=== PATIENT | male | born 1945 | race Caucasian/White ===

== ENCOUNTER 2017-09-27 07:54 | Outpatient (CLI) | payer MEDICARE, BC ==
--- NOTE | 2017-09-27 11:07 | MRI ---
MRI OF RIGHT ANKLE PERFORMED WITHOUT CONTRAST ENHANCEMENT: HISTORY: Ankle pain, posterior tibial tendinitis. There is a tendinotic appearance to the Achilles tendon. There are some areas of increased T2 signal to suggest an internal degeneration and possibly small interstitial tears. There is evidence for so me muscle strain involving the soleus associated with these findings. The anterior extensor tendon group is unremarkable. Peroneus longus and brevis tendons appear intact. There are moderate tenosynovitis changes of the posterior tibialis tendon which does not appear signi ficantly enlarged. There is some minimal intrasubstance signal change distally suggesting tendinopat hy. Flexor digitorum longus and flexor hallices longus tendons are normal in appearance. Sinus tarsi region appears unremarkable. Sinus tarsi fat does not appear infiltrative. Plantar fascia shows a calcaneal spur. There is a thickened appearance to the plantar fascia at the calcaneal attachment. Spring ligament complex appears unremarkable and Lisfranc's ligament appears i ntact. No evidence of any osteochondral lesion of the talar dome. Minimal arthritic changes of the ankle sujey ints are seen. No ligamentous abnormalities. Arthritic changes of the base of the metatarsals are incidentally seen. IMPRESSION: 1. Moderate tenosynovitis changes of the posterior tibialis tendon which shows minimal tendinopathy distally. 2. Tendinopathy of the Achilles tendon with mild psoas muscle strain. POS: [facility]
== END 2017-09-27 07:55 | disposition home or self-care (01) ==
LOC: SCSMRI 07:54
PROVIDERS: ATTEND Podiatrist Foot & Ankle Surgery
DX: M76.821 Posterior tibial tendinitis, right leg (principal); M76.61 Achilles tendinitis, right leg

== ENCOUNTER 2018-04-26 22:04 | Inpatient (IN) | payer MEDICARE, BC ==
--- NOTE | 2018-04-26 22:49 | RAD ---
PORTABLE CHEST 04/26/18 PROVIDED CLINICAL HISTORY: Chest tightness. FINDINGS: No comparisons. The cardiac and mediastinal silhouette is within normal limits for portable technique. No focal conso lidation, pleural fluid or pneumothorax apparent. IMPRESSION: No evidence for an acute cardiopulmonary process. POS: [facility]
[2018-04-26 23:11] LABS: #Basophils 0.1 thou/uL (0.0-0.2); #Eosinphils 0.2 thou/uL (0.0-0.7); #Lymphocytes 2.1 thou/uL (1.20-3.40); #Monocytes 0.9 thou/uL (0.11-0.59); #Neutrophils 4.4 thou/uL (1.40-6.50); %Basophils 1.2 % (0.0-1.0); %Lymphocytes 27.9 % (21.0-51.0); %Monocytes 11.6 % (0.0-10.0); %Neutrophils 57.3 % (42.0-75.0); Mean Corpuscular HGB CONC 34.3 g/dL (32.0-36.0); Mean Corpuscular Hemoglobin 31.4 pg (27.0-31.0); Mean Corpuscular Volume 91.7 fL (78.0-98.0); Mean Platelet Volume 7.7 fL (7.4-10.4); Platelet Count 181 thou/uL (130-400); RBC Distribution Width 12.1 % (11.5-14.5); Red Blood Cell (RBC) Count 4.76 mill/uL (4.70-6.10); White Blood Cell (WBC) Count 7.6 thou/uL (4.8-10.8)
[2018-04-26] MEDS ORDERED: Enoxaparin Sodium 80 MG/0.8 ML SYRINGE ONE (23:23)
[2018-04-26] MEDS ORDERED: Enoxaparin Sodium 40 MG/0.4 ML SYRINGE ONE (23:23)
[2018-04-26 23:32] LABS: ALT (SGPT) 16 U/L (8-55); AST (SGOT) 20 U/L (5-34); Albumin 3.7 g/dL (3.4-4.8); Alkaline Phosphatase 47 U/L (40-150); Anion Gap 13 mmol/L (10-20); BUN (Urea Nitrogen) 11 mg/dL (8.4-25.7); Bilirubin, Total 0.3 mg/dL (0.2-1.2); Calc. Creatinine Clearance 0 mL/min (70-130); Calcium 8.4 mg/dL (7.8-10.44); Carbon Dioxide 21 mmol/L (23-31); Chloride 107 mmol/L (98-107); Estimated GFR-MDRD Greater than 90; Globulin 3.1 g/dL (2.4-3.5); Glucose 138 mg/dL (83-110); Lipase 63 U/L (8-78); Potassium 3.8 mmol/L (3.5-5.1); Protein, Total 6.8 g/dL (5.8-8.1); Sodium 137 mmol/L (136-145)
[2018-04-26 23:55] LABS: CKMB 4.2 ng/mL (0-6.6)
[2018-04-27] MEDS ORDERED: Sodium Chloride 0.9% 1,000 ML IV SCH (02:37)
[2018-04-27] MEDS ORDERED: Ondansetron ODT 4 MG TAB SL PRN (02:37)
[2018-04-27] MEDS ORDERED: Ondansetron PF 4 MG/2 ML Vial IVP PRN (02:37)
[2018-04-27] MEDS ORDERED: Acetaminophen 325 MG TAB PO PRN (02:37)
[2018-04-27 03:32] LABS: Troponin I 1.195 ng/mL (< 0.028)
[2018-04-27] MEDS ORDERED: Nitroglycerin 0.4 MG TAB (25 Tab Bottle) PO PRN (04:08)
[2018-04-27] MEDS ORDERED: Senokot S 8.6-50 MG TAB PO PRN (04:11)
[2018-04-27] MEDS ORDERED: Bisacodyl 10 MG SUPP PR PRN (04:11)
[2018-04-27] MEDS ORDERED: Calcium Carbonate 500 MG ChewTAB PO PRN (04:11)
[2018-04-27] MEDS ORDERED: Bisacodyl 5 MG TAB PO PRN (04:11)
[2018-04-27] MEDS ORDERED: Zolpidem Tartrate 5 MG TAB PO PRN (04:11)
[2018-04-27] MEDS: Nitroglycerin 2% Ointment 1 INCH/1 GM Packet TOP SCH ×3 (05:54→22:04)
[2018-04-27] MEDS: Levothyroxine Sodium 88 MCG TAB PO SCH (05:55)
[2018-04-27 06:13] LABS: Troponin I 1.546 ng/mL (< 0.028)
--- NOTE | 2018-04-27 06:50 | HP ---
CHIEF COMPLAINT: Chest pain. HISTORY OF PRESENT ILLNESS: This 72-year-old male with past medical history of throat cancer, presenting with chest tightness. The patient reports that he was lying down at home and felt diffuse chest pain, which radiated to bilateral arms. The patient stated that his chest pain was localized on his entire chest. The pain was dull in nature, and it was very acute, and it was very painful, but currently patient states that his pain is 2/10 after treatment. Due to the severity of the pain, prompted the patient to call 911, and EMS brought the patient to our facility to be further evaluated. Route to our ER, the patient was given aspirin and nitroglycerin. At this time, the patient denies any headaches, fever, chills, nausea, vomiting, palpitations, abdominal pain, constipation, diarrhea, hematuria, dysuria, hematochezia, melena, or shortness of breath. REVIEW OF SYSTEMS: Positive for chest pain, otherwise as documented in the HPI. All systems have been reviewed and are negative. PAST MEDICAL HISTORY: Throat cancer. FAMILY HISTORY: Reviewed and noncontributory to this visit. PAST SURGICAL HISTORY: Lumbar back surgery, right shoulder surgery, and right knee replacement. PSYCHIATRIC HISTORY: No psych history. SOCIAL HISTORY: The patient is a former tobacco smoker, quit smoking more than 10 years ago. The patient denies any alcohol use and denies any illicit drug use. ALLERGIES: CODEINE AND PENICILLIN. CURRENT MEDICATIONS: The patient is on, 1. Zyrtec. 2. Omeprazole. 3. Levothyroxine 88 mcg. 4. Metoprolol 25 mg b.i.d. 5. AndroGel. PHYSICAL EXAMINATION: VITAL SIGNS: The patient's blood pressure is 150/105, pulse of 108, respiratory rate of 18, temperature is 98.5, O2 saturation is 95. GENERAL: The patient is awake, alert, oriented x3, not in acute distress. The patient is lying comfortably in his bed. The patient is able to speak in full sentences. HEENT: Normocephalic and atraumatic. Pupils are equally round and reactive to light. Extraocular movements are intact. No scleral icterus. No conjunctival pallor. Mucous membranes are moist. NECK: Trachea is midline. Full range of motion. No JVD. Supple. LUNGS: Clear to auscultation bilaterally. No wheezing, no rales, no rhonchi appreciated. CARDIAC: Positive S1 and S2. Irregularly irregular. ABDOMEN: Soft, nontender, and nondistended. Positive bowel sounds in all quadrants. No peritoneal signs. EXTREMITIES: The patient has 5/5 upper extremity strength and 5/5 lower extremity strength. Good pulses bilaterally. No edema noted. NEUROLOGIC: Cranial nerves 2 through 12 are grossly intact. No neurologic deficits noted. SKIN: Warm, dry, and intact. PSYCH: Normal affect. DIAGNOSTIC DATA: EKG; a 12-lead EKG shows atrial fibrillation with controlled ventricular aberrant conducted complexes. X-ray of the chest showed no evidence of acute cardiopulmonary process. LABORATORY DATA: WBC 7.6, hemoglobin 15.0, hematocrit is 43.7, and platelet count is 181. Sodium is 137, potassium is 3.8, chloride is 107, carbon dioxide of 21, anion gap of 13, BUN is 11, creatinine is 0.82. Troponin is 0.102 and the second set is 1.195 and third set is 1.546. ASSESSMENT AND PLAN: This is a 72-year-old male presenting with: 1. Chest pain due to myocardial infarction. At this point, the patient do have NSTEMI. We will start the patient on aspirin and Lovenox. We have consulted Cardiology. We will follow up with Cardiology's recommendations. The patient will benefit from possible cardiac cath at this time. 2. Past medical history of throat cancer, currently stable. We will monitor the patient. 3. Deep vein thrombosis/gastrointestinal prophylaxis. Job ID: [id number]
--- NOTE | 2018-04-27 13:59 | PRG ---
DATE OF SERVICE: 04/27/2018 SUBJECTIVE: The patient is seen and examined at bedside. He does not have much complaints to offer. He does not have chest pain during my visit. His is present in the room during my visit. OBJECTIVE: VITAL SIGNS: Blood pressure is 146/71, pulse is 58, respiratory rate is 15, temperature is 97.9, and O2 saturation is 95% on room air. HEENT: His head is atraumatic and normocephalic. Eyes are PERRLA. Sclerae are nonicteric. Oral mucosa is moist. NECK: Supple. No lymphadenopathy. CHEST: Clear. HEART: S1 and S2 normal. No S3. No S4. No murmur. ABDOMEN: Soft, obese, and nontender. Bowel sounds are present. No organomegaly. EXTREMITIES: No clubbing, cyanosis, or edema. NEUROLOGICAL: He is alert and oriented x4. There is no any motor or sensory deficit. Cranial nerves are intact. LABORATORY DATA: Labs showed 2 sets of troponin I at 1.195 and 1.546. IMPRESSION AND PLAN: [id number] elevation myocardial infarction. The patient is placed on full dose of Lovenox. He received aspirin this morning. We will keep him on both. Cardiology consult is requested. Echocardiogram to be done. He is n.p.o. and awaiting final decision per Dr. Park who is group leader semiconductor testing today. Job ID: [id number]
[2018-04-27] MEDS: Sodium Chloride 0.9% 1,000 ML IV SCH ×2 (15:42→17:53)
[2018-04-27] MEDS: Famotidine 20 MG TAB PO SCH ×2 (17:45→22:01)
[2018-04-27] MEDS: Enoxaparin Sodium 120 MG/0.8 ML SYRINGE SC SCH ×2 (17:45→22:01)
[2018-04-27] MEDS: Cetirizine HCl 10 MG TAB PO SCH (17:45)
[2018-04-27] MEDS: Metoprolol Tartrate 25 MG TAB PO SCH ×2 (17:45→22:02)
[2018-04-27] MEDS: Famotidine/PF 20 mg/2ml Vial SLOW IVP SCH ×2 (17:52→22:02)
[2018-04-27] MEDS ORDERED: Communication Order-Pharmacy FS SCH (21:30)
--- NOTE | 2018-04-28 04:23 | CON ---
DATE OF CONSULTATION: HISTORY: Sang Gallego is a 72-year-old white male who has been told in the past that he had irregular heartbeat and has undergone Holter monitoring as well as echo. He also states that 25 years ago he underwent a cardiac catheterization and was told that he had 1% or 2% blockage. Yesterday, he was outside, doing yard work as well as cutting limbs, but came in approximately 1:30 p.m. He ate dinner in the early evening and then went to bed. He then began to notice central chest pressure and feeling short of breath. He then decided to take his blood pressure and his blood pressure was approximately 160/120 with heart rate in the 160s. He repeated this several minutes later and got essentially the same result and so called EMS. On the way here, he was given aspirin and nitroglycerin and the pain resolved. Initial EKG revealed probable atrial flutter. The only medicine given in the emergency room was Lovenox 1 mg/kg. The remainder of the telemetry strips showed that he is in sinus rhythm. He has not had any further episodes of chest discomfort, but did develop abnormal cardiac enzymes. Also this morning, he was given another dose of 1 mg/kg Lovenox at 9:00 am and it was felt that without emergent circumstances that he should not undergo cardiac catheterization today with just receiving a full anticoagulation dose of Lovenox. When I came to initially see the patient, the patient's was very irate that nothing had been done for him and essentially did not wish to talk with me and I told her that as she did not want me to be there to see her that I had other things to do and so I left. Later I received word that the patient had sent his family home and wished to discuss his situation with me. PAST MEDICAL HISTORY: Metoprolol for premature beats. Hypothyroidism. No history of hypertension, diabetes, or hypercholesterolemia. PAST SURGICAL HISTORY: Right total knee replacement, back surgery, right shoulder surgery. 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 MEDICATIONS: 1. Levothyroxine 88 mcg daily. 2. Zyrtec 10 mg daily. 3. Metoprolol 25 mg b.i.d. 4. Omeprazole 40 daily. 5. Testosterone 2 pumps topically daily. ALLERGIES: CODEINE AND PENICILLIN. SOCIAL HISTORY: He does not smoke or drink. FAMILY HISTORY: Negative for myocardial infarction and coronary artery disease. REVIEW OF SYSTEMS: A 12-point review of systems is otherwise unremarkable. PHYSICAL EXAMINATION: VITAL SIGNS: Blood pressure 159/85, pulse of 76. HEENT: PERRL. NECK: Supple. CHEST: Clear. CARDIAC: S1 and S2 normal without any S3, S4, or murmurs. Carotid upstrokes normal without bruits. ABDOMEN: Normal bowel sounds without tenderness. EXTREMITIES: Revealed no clubbing, cyanosis, or edema. NEUROLOGICAL: Grossly intact. LABORATORY DATA: The only EKG on the chart reveals probable atrial flutter with variable block. No acute changes. Echocardiogram revealed ejection fraction of 50% to 55% with evidence for diastolic dysfunction, mild left atrial enlargement, mild mitral tricuspid and pulmonic regurgitation. CBC is unremarkable. Sodium 137, potassium 3.8, chloride 107, carbon dioxide 21 , BUN 11, creatinine 0.82, glucose 138. BNP 239.8. Troponin I is up to 1.546. Chest x-ray is unremarkable. IMPRESSION: 1. Fts-VN-uqralzbjn myocardial infarction. 2. Atrial flutter. It is somewhat unclear if this was the initiating event or as a result of his [id number]-ZY-srygacuns myocardial infarction. This appears to have converted back to normal sinus rhythm without specific treatment. 3. History of premature beats. 4. Unknown cholesterol status. RECOMMENDATIONS: The patient will be maintained on Lovenox until cardiac cath. Risks of catheterization were discussed including , myocardial infarction, dye reaction, vascular injury, CVA, transfusion, limb loss, renal loss, etc. Also risk of intervention with PTCA and stent placement were discussed including , myocardial infarction, emergent CABG, restenosis, stent thrombosis, vessel perforation, etc. We discussed bare-metal stent versus drug-eluting stents. He has never had any gastrointestinal bleeding or stroke. He does not have any upcoming surgeries and overall is recommended that a drug-eluting stent be placed if needed. He understands and agrees to proceed. If no significant coronary artery disease is found and this appears to be a result of his episode of atrial flutter, Electrophysiology consultation will be obtained. Job ID: [id number] [facility]
[2018-04-28] MEDS: Levothyroxine Sodium 88 MCG TAB PO SCH (04:59)
[2018-04-28] MEDS: Acetaminophen 325 MG TAB PO PRN ×3 (04:59→21:05)
[2018-04-28] MEDS: Nitroglycerin 2% Ointment 1 INCH/1 GM Packet TOP SCH ×3 (04:59→21:10)
[2018-04-28 05:06] LABS: #Basophils 0.1 thou/uL (0.0-0.2); #Eosinphils 0.1 thou/uL (0.0-0.7); #Monocytes 1.1 thou/uL (0.11-0.59); #Neutrophils 6.8 thou/uL (1.40-6.50); %Basophils 0.6 % (0.0-1.0); %Eosinophils 1.4 % (0.0-10.0); %Lymphocytes 20.2 % (21.0-51.0); %Monocytes 10.5 % (0.0-10.0); %Neutrophils 67.3 % (42.0-75.0); Hemoglobin 14.8 g/dL (14.0-18.0); Mean Corpuscular HGB CONC 34.4 g/dL (32.0-36.0); Mean Corpuscular Hemoglobin 31.3 pg (27.0-31.0); Platelet Count 183 thou/uL (130-400); RBC Distribution Width 12.1 % (11.5-14.5); Red Blood Cell (RBC) Count 4.72 mill/uL (4.70-6.10); White Blood Cell (WBC) Count 10.1 thou/uL (4.8-10.8)
[2018-04-28 05:31] LABS: Anion Gap 13 mmol/L (10-20); BUN (Urea Nitrogen) 11 mg/dL (8.4-25.7); Calc. Creatinine Clearance 148 mL/min (70-130); Carbon Dioxide 24 mmol/L (23-31); Cardiac Risk 5.5 (Less than 4.5); Chloride 105 mmol/L (98-107); Cholesterol 198 mg/dl (< 200 Desired); Estimated GFR-MDRD Greater than 90; Glucose 87 mg/dL (83-110); HDL Cholesterol 36 mg/dL (>60 Neg Risk); LDL Cholesterol, Calculated 135 mg/dL; Sodium 138 mmol/L (136-145); Triglycerides 137 mg/dL (Less than 150)
[2018-04-28] MEDS: Aspirin 325 MG TAB PO SCH (08:48)
[2018-04-28] MEDS: Metoprolol Tartrate 25 MG TAB PO SCH (08:48)
[2018-04-28] MEDS: Famotidine 20 MG TAB PO SCH ×2 (08:48→21:05)
[2018-04-28] MEDS: Enoxaparin Sodium 120 MG/0.8 ML SYRINGE SC SCH ×2 (08:48→21:09)
[2018-04-28] MEDS: Famotidine/PF 20 mg/2ml Vial SLOW IVP SCH ×2 (08:48→21:10)
[2018-04-28] MEDS: Cetirizine HCl 10 MG TAB PO SCH (08:48)
--- NOTE | 2018-04-28 11:34 | PRG ---
DATE OF SERVICE: 04/28/2018 SUBJECTIVE: The patient is seen and examined at the bedside. He is doing well. He does not have any chest pain. Does not have any other complaints to offer. OBJECTIVE: VITAL SIGNS: Blood pressure is 159/87, pulse is 64, temperature is 97.5, respirations 20, O2 saturation is 93% on room air. HEENT: His head is atraumatic and normocephalic. Eyes are PERRLA. Sclerae are nonicteric. Oral mucosa is moist. NECK: Supple. LUNGS: Clear. HEART: S1, S2 normal. No S3. No S4. No any murmur. ABDOMEN: Soft, nontender, and nondistended. Bowel sounds are present. No organomegaly. EXTREMITIES: No clubbing, cyanosis, or edema. NEUROLOGICAL: He is alert and oriented x4. There is no any motor or sensory deficit present. Cranial nerves are intact. LABORATORY DATA: CBC is within normal limits. Chemistry within normal limits. He has two sets of troponins, came back at 1.195 and 1.546. Triglycerides 137, total cholesterol 198, LDL 135, HDL 35, and TSH third generation 1.37. Echocardiogram showed ejection fraction of the left ventricle at 50% to 55%. There is some evidence of diastolic dysfunction. There is mildly dilated left atrium. Mild mitral regurgitation, mild tricuspid regurgitation, and mild pulmonic regurgitation. IMPRESSION: Non-ST elevation myocardial infarction. The patient on full dose of Lovenox. He was seen by Dr. Park, who is planned to do cardiac catheterization on Monday. History of throat cancer, stable. PLAN: Now, the plan is to continue his aspirin, full dose of Lovenox, Synthroid, metoprolol, pantoprazole, p.r.n. nitroglycerin. He will be scheduled for Monday for cardiac catheterization by Dr. Isaac. Job ID: [id number]
[2018-04-28] MEDS: Metoprolol Tartrate 50 MG TAB PO SCH (21:36)
--- NOTE | 2018-04-28 21:59 | EKG ---
Test Reason : CHEST TIGHTNESS Blood Pressure : / mmHG Vent. Rate : 099 BPM Atrial Rate : 267 BPM P-R Int : 000 ms QRS Dur : 078 ms QT Int : 348 ms P-R-T Axes : 242 -34 -35 degrees QTc Int : 446 ms Atrial flutter with variable A-V block with premature ventricular or aberrantly conducted complexes Left axis deviation Pulmonary disease pattern Minimal voltage criteria for LVH, may be normal variant Inferior infarct , age undetermined Abnormal ECG Confirmed by KENNETH WARNER DO ([id number]), market editor TERESA DUFFY ([id number]) on 04/28/2018 9:59:17 PM Referred By: TIMMY Confirmed By:KENNETH WARNER DO
[2018-04-29] MEDS: Nitroglycerin 2% Ointment 1 INCH/1 GM Packet TOP SCH ×3 (06:11→20:41)
[2018-04-29] MEDS: Levothyroxine Sodium 88 MCG TAB PO SCH (06:11)
--- NOTE | 2018-04-29 08:31 | PDOC.PN ---
- Subjective Encounter Start Date: 04/29/18 Encounter Start Time: 08:29 Subjective: No new complaint - Objective Resuscitation Status - Order Detail: 04/27/18 04:11 Resuscitation Status Routine Resuscitation Status: FULL: Full Resuscitation Vital Signs & Weight: Vital Signs (12 hours) Temp Pulse Resp BP Pulse Ox 04/29/18 07:51 97.7 F 60 16 144/68 H 95 04/29/18 03:50 98.2 F 61 20 144/76 H 93 L 04/28/18 23:38 97.9 F 55 L 16 116/56 L 93 L 04/28/18 21:08 45 L 138/64 95 Weight Weight 260 lb 4.8 oz I&O: 04/28/18 04/29/18 04/30/18 06:59 06:59 06:59 Intake Total 680 960 Output Total 175 Balance 505 960 Result Diagrams: 04/28/18 04:40 04/28/18 04:40 Phys Exam - Physical Examination Constitutional: NAD HEENT: PERRLA, moist MMs, sclera anicteric, TM's clear Neck: no nodes, no JVD, supple, full ROM Respiratory: no wheezing, no rales, no rhonchi, clear to auscultation bilateral Cardiovascular: RRR, no significant murmur, no rub Gastrointestinal: soft, non-tender, no distention, positive bowel sounds Musculoskeletal: no edema, pulses present Neurological: non-focal, normal sensation, moves all 4 limbs Lymphatic: no nodes Dx/Plan (1) Chest pain Code(s): R07.9 - CHEST PAIN, UNSPECIFIED Status: Acute (2) NSTEMI (non-ST elevated myocardial infarction) Code(s): I21.4 - NON-ST ELEVATION (NSTEMI) MYOCARDIAL INFARCTION Status: Acute - Plan DVT proph w/lovenox Appreciate cardiology input -: Full dose lovenox -: Cardiac cath on monday * .
[2018-04-29] MEDS: Famotidine 20 MG TAB PO SCH ×2 (08:44→20:38)
[2018-04-29] MEDS: Aspirin 325 MG TAB PO SCH (08:44)
[2018-04-29] MEDS: Metoprolol Tartrate 50 MG TAB PO SCH ×2 (08:44→20:38)
[2018-04-29] MEDS: Cetirizine HCl 10 MG TAB PO SCH (08:45)
[2018-04-29] MEDS: Famotidine/PF 20 mg/2ml Vial SLOW IVP SCH ×2 (10:07→20:41)
[2018-04-29] MEDS: Acetaminophen 325 MG TAB PO PRN (17:36)
[2018-04-29] MEDS: Lisinopril 5 MG TAB PO SCH (20:40)
[2018-04-30 04:47] LABS: #Eosinphils 0.2 thou/uL (0.0-0.7); #Lymphocytes 2.2 thou/uL (1.20-3.40); #Monocytes 0.8 thou/uL (0.11-0.59); #Neutrophils 3.7 thou/uL (1.40-6.50); %Basophils 0.4 % (0.0-1.0); %Eosinophils 2.8 % (0.0-10.0); %Lymphocytes 32.2 % (21.0-51.0); %Neutrophils 53.6 % (42.0-75.0); Hemoglobin 15.2 g/dL (14.0-18.0); Mean Corpuscular HGB CONC 34.4 g/dL (32.0-36.0); Mean Corpuscular Hemoglobin 31.6 pg (27.0-31.0); Mean Corpuscular Volume 91.7 fL (78.0-98.0); Mean Platelet Volume 7.6 fL (7.4-10.4); Platelet Count 188 thou/uL (130-400); Red Blood Cell (RBC) Count 4.81 mill/uL (4.70-6.10)
[2018-04-30 05:12] LABS: Calc. Creatinine Clearance 135 mL/min (70-130); Estimated GFR-MDRD Greater than 90
[2018-04-30] MEDS: Cetirizine HCl 10 MG TAB PO SCH (05:46)
[2018-04-30] MEDS: Levothyroxine Sodium 88 MCG TAB PO SCH (05:46)
[2018-04-30] MEDS: Aspirin 325 MG TAB PO SCH (05:46)
[2018-04-30] MEDS: Famotidine 20 MG TAB PO SCH ×2 (05:46→20:33)
[2018-04-30] MEDS: Lisinopril 5 MG TAB PO SCH ×2 (05:47→20:33)
[2018-04-30] MEDS: Nitroglycerin 2% Ointment 1 INCH/1 GM Packet TOP SCH ×3 (05:48→21:25)
[2018-04-30] MEDS: Metoprolol Tartrate 50 MG TAB PO SCH ×2 (05:48→20:34)
[2018-04-30] MEDS: Famotidine/PF 20 mg/2ml Vial SLOW IVP SCH ×2 (05:49→20:35)
[2018-04-30] MEDS ORDERED: Sodium Chloride 0.9% 1,000 ML IV SCH ×2 (06:00→10:34)
[2018-04-30] MEDS ORDERED: Midazolam HCl 2 mg/2 ml Vial ONE (08:48)
[2018-04-30] MEDS ORDERED: Fentanyl 100 MCG/2 ML VIAL ONE (08:48)
[2018-04-30] MEDS ORDERED: Lidocaine 1% (PF) 30 ML VIAL ONE (09:02)
--- NOTE | 2018-04-30 09:08 | PDOC.PN ---
- Subjective Encounter Start Date: 04/30/18 Encounter Start Time: 09:07 Subjective: Seen and examined feeling ok - Objective Resuscitation Status - Order Detail: 04/27/18 04:11 Resuscitation Status Routine Resuscitation Status: FULL: Full Resuscitation Vital Signs & Weight: Vital Signs (12 hours) Temp Pulse Resp BP Pulse Ox 04/30/18 07:52 97.2 F L 60 18 137/74 94 L 04/30/18 05:47 51 L 04/30/18 03:32 97.6 F 55 L 16 153/75 H 96 04/29/18 23:09 97.7 F 53 L 18 133/69 94 L Weight Weight 258 lb 1.6 oz I&O: 04/29/18 04/30/18 05/01/18 06:59 06:59 06:59 Intake Total 960 1380 Output Total 1225 Balance 960 155 Result Diagrams: 04/30/18 04:31 04/30/18 04:31 Phys Exam - Physical Examination Constitutional: NAD HEENT: PERRLA, moist MMs, sclera anicteric, TM's clear, oral pharynx no lesions Neck: no nodes, no JVD, supple, full ROM Respiratory: no wheezing, no rales, no rhonchi Cardiovascular: RRR, no significant murmur, no rub Gastrointestinal: soft, non-tender, no distention, positive bowel sounds Musculoskeletal: no edema, pulses present Dx/Plan (1) Chest pain Code(s): R07.9 - CHEST PAIN, UNSPECIFIED Status: Acute (2) NSTEMI (non-ST elevated myocardial infarction) Code(s): I21.4 - NON-ST ELEVATION (NSTEMI) MYOCARDIAL INFARCTION Status: Acute - Plan Cardiac catherisation today -: Dispo dependent on the cardiac cath findings * .
[2018-04-30] MEDS ORDERED: Iopamidol 370 76% 50 ML VIAL FS ONE (10:01)
[2018-04-30] MEDS ORDERED: Iopamidol 370 76% 100 ML VIAL ONE (10:01)
[2018-04-30] MEDS ORDERED: Protamine Sulfate 50 MG/5 ML VIAL ONE (10:12)
[2018-04-30] MEDS ORDERED: Acetaminophen/Codeine 30-300mg Tablet PO PRN ×2 (10:32)
[2018-04-30] MEDS ORDERED: Nitroglycerin 0.4 MG TAB (25 Tab Bottle) SL PRN (10:32)
[2018-04-30] MEDS ORDERED: traMADol HCl 50 MG TAB PO PRN (10:32)
[2018-04-30] MEDS ORDERED: Sodium Chloride 0.9% 200 ML IV PRN (10:45)
[2018-04-30] MEDS ORDERED: Communication Order-Pharmacy FS ONE (15:58)
[2018-04-30] MEDS ORDERED: Acetaminophen 325 MG TAB PO PRN (21:39)
--- NOTE | 2018-04-30 21:59 | CON ---
DATE OF CONSULTATION: 04/30/2018 PRIMARY CARE PHYSICIAN: Butch Rucker MD CHIEF COMPLAINT: Chest pressure and shortness of breath. HISTORY OF PRESENT ILLNESS: The patient is a 72-year-old man with minimal past medical history. 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 He was doing his typical workload, cutting limbs and clearing brush without any difficulty, but decided to eat supper and turn in early. This past Monday, he developed substernal chest pressure and shortness of breath. When he took his heart rate and blood pressure at home, his heart rate was in the 160s and blood pressure was 160/120, and it was essentially the same several minutes later when he rechecked it, so he called EMS. He was given aspirin and nitroglycerin en route. Some reports say that he was in atrial fibrillation, other in atrial flutter en route. By the time he reached here, his pain had essentially resolved and upon arrival or shortly thereafter, he spontaneously converted to sinus rhythm. He was given 1 mg/kg Lovenox and he has had an uncomplicated postinfarction course following what proved to be a non ST-elevation [place]. Cardiac catheterization today shows three-vessel coronary disease with low normal LVEF. PAST MEDICAL HISTORY: Significant for history of vocal cord cancer. He has had multiple back procedures, multiple knee procedures including knee replacement. Ultimately, he reports having ectopy, appreciated during a preop workup for shoulder surgery, and was empirically started on lopressor at that time. He describes undergoing a cardiac evaluation that included cardiac catheterization around 25 years ago for some shortness of breath that proved self-limiting. He describes having trivial coronary disease identified at that point. MEDICATIONS: The patient's home medications are: 1. Zyrtec 10 mg a day. 2. Prilosec 20 mg a day. 3. Synthroid 88 mcg a day. 4. Lopressor 25 mg a day. 5. AndroGel topical daily. Currently, he is on: 1. Lopressor 50 mg b.i.d. 2. Lisinopril 5 mg b.i.d. 3. Nitroglycerin paste one-half inch q.8 hours. 4. Adult aspirin a day. 5. Protonix 40 mg a day. 6. Pepcid 20 mg b.i.d. 7. Zyrtec 10 mg a day. 8. His Lovenox has been stopped. ALLERGIES: HE REPORTS AN ALLERGY TO PENICILLIN WHICH CAUSES A RASH, TO CODEINE WHICH CAUSES A RASH (BUT HAS TAKEN HYDROCODONE ON MULTIPLE OCCASIONS WITHOUT DIFFICULTY). HE REPORTS AN INTOLERANCE TO 2 DIFFERENT STATINS, THE NAMES OF WHICH HE DOES NOT RECALL, WHICH CAUSED SEVERE LEG CRAMPS. THE PATIENT USED TO SMOKE, BUT QUIT MANY YEARS AGO. FAMILY HISTORY: His father underwent cardiac valve surgery. He at age 85 with problems related to COPD and renal failure. His mother lived age 85. She had Parkinson disease and Alzheimer disease. REVIEW OF SYSTEMS: The patient a few weeks ago had some diarrhea, but has had no other recent illnesses. He denies any transient eye, speech, facial or extremity symptoms to suggest TIAs. He has chronic back pain. He has no shortness of breath. No orthopnea. No PND. No deep tendon edema. He has no crampy pain in his legs when he walks. He is normally able to carry out quite vigorous activities without difficulty. This is his first episode of chest pain. PHYSICAL EXAMINATION: GENERAL: He is in no distress. VITAL SIGNS: He is 6 foot and 3 inches, weighs 200. His initial weight was recorded as 265 pounds. His most recent weight is recorded as 258. In the emergency room, his heart rate was 108, blood pressure 150/105, respirations 18, room air O2 sats were 95%. Heart rates now have ranged from 44-60 with the most recent being 55. Blood pressure is 133/69, room air O2 sats are 95%. He has remained afebrile. His most recent temperature is 98.2. He has no xanthelasma. No JVD. No carotid bruits. CHEST: Clear to auscultation. He has regular rate and rhythm without murmur or gallop. ABDOMEN: Soft and nontender. He has easily palpable radial, femoral, popliteal, dorsalis pedis and posterior tibial pulses. He has no clubbing, cyanosis, or edema. He has no obvious varicosities. He has no overt hoarseness and he says that the hoarseness he had at the time of the diagnosis of his vocal cord cancer has resolved. LABORATORY DATA: His white count 7.6, hemoglobin 15.0, hematocrit 43.7, platelets were 181,000. Sodium 137, potassium 3.8, chloride 107, CO2 of 21, glucose 138, BUN 11, creatinine 0.82, calcium 8.4, protein 6.8, albumin 3.7, bilirubin 0.3, alkaline phosphatase 47, AST 20, ALT 16. Fasting triglycerides were 137, cholesterol 198 with LDL 135 and HDL 36, TSH was 1.3776. On the night of , presentation about 11 o'clock, his troponin was 0.102. At 3 o'clock the next morning, it was 1.195 and about 5:30 the next morning, 1.546. His BNP was 239.8. His chest x-ray perhaps shows some very mild pulmonary edema. His EKG that I saw on the chart was atrial fibrillation about a rate of 100 with small voltage R waves in inferior leads, similar to what he had when he converted to sinus. Followup EKG with sinus bradycardia in the low 50s. His cardiac catheterization shows a right-dominant system. His left main is normal. 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 He has approximately occluded circumflex with a tiny ramus type OM that fills left to left and then on right-sided injections, fairly good-sized obtuse marginal that is occluded and fills [id number]. He has a long 80% lesion in the mid right coronary with large posterior descending and posterior lateral branches, which provide collaterals for the obtuse marginal. LVEF is around 50%, which is consistent with his echo that showed an EF of 50% to 55%. LV pressures were 136/4 with an EDP of 13 and 150/2 with an EDP of 5. Aortic pressures were 136/72 and 133/65. IMPRESSION AND RECOMMENDATIONS: Three-vessel coronary disease in a patient, who appears to be a low risk candidate for surgical revascularization while he probably does not fit a category of patients for whom there is a survival advantage in coronary bypass surgery. His disease is significant enough that I think his best option long-term in terms of symptomatic "control" will be with revascularization. I will discuss with Dr. Park about whether an epicardial modified maze procedure would be appropriate given his presentation with atrial fibrillation. Job ID: [id number]
[2018-05-01] MEDS: Levothyroxine Sodium 88 MCG TAB PO SCH (06:03)
[2018-05-01] MEDS: Lisinopril 5 MG TAB PO SCH (06:03)
[2018-05-01] MEDS: Metoprolol Tartrate 50 MG TAB PO SCH (06:04)
[2018-05-01] MEDS: Nitroglycerin 2% Ointment 1 INCH/1 GM Packet TOP SCH (06:05)
[2018-05-01] MEDS ORDERED: Clindamycin/D5W 900 mg/50 ml Premix Bag ONE (06:09)
[2018-05-01] MEDS ORDERED: Fentanyl 250 MCG/5 ML VIAL ONE (06:12)
[2018-05-01] MEDS ORDERED: Norepinephrine 8 MG/0.9% NS 250 ML ONE (06:13)
[2018-05-01] MEDS ORDERED: Albumin 5% 500 ML ONE (06:28)
[2018-05-01] MEDS ORDERED: CABG-Clindamycin/D5W 900 MG in Premix Bag 1 BAG IVPB SCH (07:00)
[2018-05-01] MEDS ORDERED: Heparin 10,000 UNITS/1 ML VIAL 30,000 UNITS in Sodium Chloride 0.9% 1,000 ML FS SCH (08:30)
[2018-05-01] MEDS ORDERED: Ondansetron PF 4 MG/2 ML Vial IVP PRN (10:35)
[2018-05-01] MEDS ORDERED: Fentanyl 100 MCG/2 ML VIAL SLOW IVP PRN ×2 (10:35)
[2018-05-01] MEDS ORDERED: Bisacodyl 5 MG TAB PO PRN (10:35)
[2018-05-01] MEDS ORDERED: Hetastarch 6% 500 ML 500 ML IVPB PRN (10:35)
[2018-05-01] MEDS ORDERED: Aspirin 325 MG TAB PO SCH (10:35)
[2018-05-01] MEDS ORDERED: Promethazine HCl 25 MG/ML VIAL IM PRN (10:35)
[2018-05-01] MEDS ORDERED: Morphine 2 MG/ML SYRINGE SLOW IVP PRN (10:35)
[2018-05-01] MEDS ORDERED: Norepinephrine 8 MG/0.9% NS 250 ML IVPB PRN (10:35)
[2018-05-01] MEDS ORDERED: Post-Op Insulin Drip Protocol IVPB ONE (10:35)
[2018-05-01] MEDS ORDERED: Nitroglycerin 50 MG/250 ML BOT 250 ML IVPB PRN (10:35)
[2018-05-01] MEDS ORDERED: Bisacodyl 10 MG SUPP PR PRN (10:35)
[2018-05-01] MEDS ORDERED: Guaifenesin DM 100-10/5 ML UDCUP PO PRN (10:35)
[2018-05-01] MEDS ORDERED: Acetaminophen 325 MG TAB PO PRN (10:35)
[2018-05-01] MEDS ORDERED: Mag-Al 1200 mg/1200 mg/30 ML UDCUP PO PRN (10:35)
[2018-05-01] MEDS ORDERED: hydrALAZINE 20 MG/ML VIAL SLOW IVP PRN (10:35)
[2018-05-01] MEDS ORDERED: Dextrose 5% in Water 1,000 ML IV PRN (10:40)
[2018-05-01] MEDS ORDERED: Dextrose 50% Abboject 50 ML SYRINGE SLOW IVP PRN (10:40)
[2018-05-01] MEDS ORDERED: HUMULIN R 100 UNITS in Sodium Chloride 0.9% 100 ML IVPB SCH ×2 (10:40→14:52)
[2018-05-01] MEDS ORDERED: Insulin Regular 300 UNITS/3 ML VIAL SC PRN (10:40)
[2018-05-01 14:00] LABS: Actual Bicarbonate (HCO3a) 21.9 mEq/L (22-28); CO2 Tension 34.8 mmHg (35.0-45.0); Calcium, Ionized 1.05 mmol/L (1.12-1.30); Carboxyhemoglobin (COHb) 1.1 gm% (0.0-3.0); Hemoglobin (Hb) 13.2 g/dL (14.0-18.0); O2 Tension (PaO2) 91.9 mmHg (> 70.0); Potassium - ABG Lab 4.12 mmol/L (3.70-5.30); pH, Arterial 7.42 (7.35-7.45)
[2018-05-01] MEDS: Ketorolac Tromethamine 30 MG/ML VIAL IVP SCH ×3 (14:00→23:57)
[2018-05-01] MEDS: Sodium Chloride 0.9% 1,000 ML IV SCH ×2 (14:00→23:57)
[2018-05-01 14:01] LABS: Puncture Site ALINE
[2018-05-01 14:16] LABS: #Lymphocytes 1.1 thou/uL (1.20-3.40); #Monocytes 0.9 thou/uL (0.11-0.59); %Basophils 0.2 % (0.0-1.0); %Eosinophils 0.4 % (0.0-10.0); %Monocytes 8.4 % (0.0-10.0); %Neutrophils 80.9 % (42.0-75.0); Hemoglobin 12.9 g/dL (14.0-18.0); Mean Corpuscular HGB CONC 35.2 g/dL (32.0-36.0); Mean Corpuscular Hemoglobin 32.1 pg (27.0-31.0); Mean Corpuscular Volume 91.2 fL (78.0-98.0); Mean Platelet Volume 7.6 fL (7.4-10.4); Platelet Count 143 thou/uL (130-400); RBC Distribution Width 12.3 % (11.5-14.5); Red Blood Cell (RBC) Count 4.02 mill/uL (4.70-6.10); White Blood Cell (WBC) Count 11.1 thou/uL (4.8-10.8)
[2018-05-01 14:24] LABS: INR-International Normal Ratio 1.3; PTT 28.8 SEC (22.9-36.1)
[2018-05-01] MEDS ORDERED: Magnesium 5 GM/10 ML VIAL ONE (14:32)
[2018-05-01] MEDS ORDERED: Cardioplegic Soln 1,000 ML BAG ONE (14:32)
[2018-05-01] MEDS ORDERED: Succinylcholine Chloride 20 MG/ML 10 ml SYRINGE FS ONE (14:32)
[2018-05-01] MEDS ORDERED: Heparin 5,000 UNITS/ML VIAL ONE (14:32)
[2018-05-01] MEDS ORDERED: Potassium Chloride 60 MEQ/30 ML VIAL ONE (14:32)
[2018-05-01] MEDS ORDERED: Heparin 30,000 units/30 ml VIAL ONE (14:32)
[2018-05-01] MEDS ORDERED: Lidocaine 2% PF 100 mg/5 ml Syringe ONE (14:32)
[2018-05-01] MEDS ORDERED: Calcium Chloride 1 GM/10 ML Abboject SYRINGE ONE (14:32)
[2018-05-01] MEDS ORDERED: Mannitol 12.5 GM/50 ML ONE (14:32)
[2018-05-01] MEDS ORDERED: Vecuronium 10 MG VIAL ONE (14:32)
[2018-05-01] MEDS ORDERED: Nitroglycerin 50 MG/250 ML BOT ONE (14:32)
[2018-05-01] MEDS ORDERED: Protamine Sulfate 250 MG/25 ML VIAL ONE (14:32)
[2018-05-01] MEDS ORDERED: Aminocaproic Acid 5 GM/20 ML VIAL ONE (14:32)
[2018-05-01] MEDS ORDERED: Rocuronium Bromide 10 MG/ML (10ML VIAL) ONE (14:32)
[2018-05-01] MEDS ORDERED: Papaverine 60 MG/2 ML VIAL ONE (14:32)
[2018-05-01] MEDS ORDERED: Sodium Bicarb 50 MEQ/50 ML VIAL ONE (14:32)
[2018-05-01] MEDS ORDERED: PROPOFOL 200 MG/20 ML VIAL ONE (14:32)
[2018-05-01] MEDS ORDERED: Thrombin 5000 UNITS/5 ML VIAL ONE (14:32)
[2018-05-01 14:38] LABS: Anion Gap 16 mmol/L (10-20); BUN (Urea Nitrogen) 11 mg/dL (8.4-25.7); Calc. Creatinine Clearance 147 mL/min (70-130); Calcium 8.1 mg/dL (7.8-10.44); Carbon Dioxide 21 mmol/L (23-31); Chloride 109 mmol/L (98-107); Estimated GFR-MDRD Greater than 90; Glucose 151 mg/dL (83-110); Potassium 4.2 mmol/L (3.5-5.1); Sodium 142 mmol/L (136-145)
--- NOTE | 2018-05-01 15:03 | RAD ---
PORTABLE CHEST: HISTORY: Postoperative open heart surgery. COMPARISON: 04/26/2018 FINDINGS: Heart size is enlarged with postop sternotomy change. An endotracheal tube is in satisfactory positi on. A right subclavian line has been placed with the catheter tip overlying the superior vena cava. There are atelectatic changes in the lung bases. IMPRESSION: 1. Cardiomegaly with postoperative sternotomy change. 2. Bibasilar atelectasis. 3. Endotracheal tube and right subclavian line in satisfactory position. POS: [facility]
--- NOTE | 2018-05-01 15:37 | PRG ---
DATE OF SERVICE: 05/01/2018 SUBJECTIVE: The patient is seen and examined at bedside. He is in ICU bed 5. He just came back from operating room, where he had triple bypass. OBJECTIVE: VITAL SIGNS: Blood pressure is 168/97 on art-line and on blood pressure cuff is 147/96, respirations 24, pulse is 80. GENERAL: He is still under the influence of sedation. He is orally intubated on a ventilator. LUNGS: Breath sounds diminished at both bases. He has central line in the right upper chest and two chest tubes coming from the front. He has post-incisional area dressing. HEART: S1, S2 normal. No S3. No S4. ABDOMEN: Soft and nondistended. Bowel sounds are present, although very sluggish. EXTREMITIES: Right lower extremity, no clubbing, cyanosis, or edema. Left lower extremity wrapped with an NONI wrap. NEUROLOGIC: under sedation from the operation. LABORATORY DATA: White count of 11.1, hemoglobin 12.9, hematocrit 36.6, platelet count is 143, neutrophils 80.9. ABGs showed pH of 7.42, pCO2 34.8, and PO2 is 91.9. Sodium of 142, potassium 4.2, chloride 109, CO2 of 21, BUN 11, creatinine 0.76, and glucose 151. IMPRESSION: 1. Status post triple bypass surgery done this morning. The patient is still under sedation from the anesthesia. 2. Bfu-CX-rbvkydtgj myocardial infarction. Senior Infrastructure Engineer is consulted and a cardiothoracic surgeon will follow the case postoperatively. We will continue pain management as needed. We will continue all orders per post CABG protocol. Job ID: [id number]
[2018-05-01 17:40] LABS: Actual Bicarbonate (HCO3a) 19.9 mEq/L (22-28); Base Excess (BEa) -4.1 mEq/L (-2.0 to +3.0); CO2 Tension 33.2 mmHg (35.0-45.0); Calcium, Ionized 1.05 mmol/L (1.12-1.30); Hemoglobin (Hb) 13.9 g/dL (14.0-18.0); O2 Tension (PaO2) 87.1 mmHg (> 70.0); Potassium - ABG Lab 3.58 mmol/L (3.70-5.30)
[2018-05-01 17:44] LABS: Puncture Site ALINE
[2018-05-01] MEDS: HYDROcodone/Acetaminophen 5/325 mg Tablet PO PRN ×2 (20:15→23:56)
[2018-05-01 20:31] LABS: Potassium 3.9 mmol/L (3.5-5.1)
--- NOTE | 2018-05-01 20:37 | OP ---
DATE OF PROCEDURE: 05/01/2018 PROCEDURES PERFORMED: Coronary artery bypass grafting x3 with left internal mammary artery to the left anterior descending and reverse greater saphenous vein graft from aorta to the second obtuse marginal and from the aorta to the posterior descending artery and ligation of left atrial appendage. PREOPERATIVE DIAGNOSIS: Coronary artery disease, status post [id number]-[id number] myocardial infarction. POSTOPERATIVE DIAGNOSIS: Coronary artery disease, status post woq-VA-bpxhnqmor myocardial infarction. ANESTHESIA: General endotracheal anesthesia. INDICATIONS FOR PROCEDURE: The patient is a 72-year-old man, who developed chest pressure and shortness of breath and ruled in for myocardial infarction. In transit by EMS and initially upon arrival here, he was in atrial fibrillation and flutter, but spontaneously converted to sinus rhythm. He had a cardiac catheterization, demonstrated 3-vessel coronary artery disease. Echocardiography demonstrated a somewhat enlarged left atrium. He is now taken to the operating room for surgical revascularization. FINDINGS: Good quality HELENA and saphenous vein. The LAD was about a 2- and 2.5-mm vessel and good quality. The OM1 was about a 0.5-mm vessel and was not grafted. The OM2 was about a 2- to 2.5-mm vessel with multiple islands of plaque. PDA was about a 2-mm good quality vessel. Pericardium was closed. Pump time was 97 minutes. Cross-clamp time was 57 minutes. DESCRIPTION OF PROCEDURE: After informed consent was obtained, the patient was taken to the operating room and placed in supine position on the operating table. After the induction of general anesthesia, ultrasonographic mapping of his left greater saphenous vein was undertaken. His right chest was then prepped and draped in sterile fashion and a triple lumen central line kit was used to place a right subclavian central line by the Seldinger technique. All three ports were easily aspirated and flushed. The line was secured. The patient's torso, groins and lower extremities were then prepped and draped in sterile fashion. The greater saphenous vein was exposed in the distal left thigh, and then through that incision, was endoscopically harvested from groin to about a handbreadth below the knee. It was prepared for use as a graft. The port site was closed in layers of subcutaneous and subcuticular Vicryl. A median sternotomy was performed. The left internal mammary artery was mobilized as a skeletonized in-situ graft from the level of the xiphoid to the level of the subclavian vein through an extrapleural exposure. The rent in the pleura at the medial apex was repaired with a fine Prolene and secured under a Valsalva maneuver. The patient was heparinized. The mammary was ligated and divided distally. There was excellent flow through the mammary, which was fairly large and good quality vessel. Papaverine solution was instilled intraluminally. The mammary bed was inspected for hemostasis. The HELENA retractor was replaced with a Ackerman retractor. The pericardium was opened and marsupialized. The aorta was palpated and was soft. A double concentric pursestring of 2-0 Ethibond was placed in the ascending aorta within the pericardial reflection and a single pursestring was placed in the right atrial appendage. Aortic and venous cannulae were inserted and secured by their pursestrings. The plane between the aorta and the pulmonary artery was developed. Cardiopulmonary bypass was instituted and the patient was systemically cooled. The heart was examined. The vessels to be bypassed were identified. The hilar reflections of the left pleura were developed and a longitudinal slit was made in the pericardium anterior to the left phrenic nerve through which the mammary could be passed. An aortic cross-clamp was applied and cardioplegia was administered through an aortic root needle. When arrest have been achieved, attention was turned to the left atrial appendage. A 3-0 Prolene suture was used in 2 layers of running horizontal mattress at the base of the appendage to ligate it. Attention was then turned to the circumflex system. The OM1 was a tiny vessel. The OM2 was a fairly large vessel, although there were multiple widely spaced islands of plaque visible. The OM2 was open fairly distally crossing over one of these areas with an island of plaque eccentrically placed in it. Saphenous vein was generously spatulated to accommodate the arteriotomy and then was anastomosed to it end-to-side with running Prolene suture. The anastomosis was tested by flushing cold saline, then cold cardioplegia down the graft. Attention was then turned to the distal right coronary system. The right coronary was opened at the crux and the arteriotomy extended several millimeters down onto the PDA. Saphenous vein was anastomosed there end-to-side in a similar fashion. The LAD was then opened and the mammary anastomosed to it with running 7-0 Prolene suture over a 1.75-mm shunt to control back bleeding that was not adequately controlled with the root needles. The mammary was tacked to the epicardium. The aortic cross-clamp was replaced with a partial occluding clamp. The root needle site was incorporated into the more proximal of the two aortotomies used for proximal anastomoses. The PDA graft was brought along the AV groove and anastomosed to the more proximal aortotomy and the OM2 graft brought along the left side of the heart and anastomosed to the more distal aortotomy. The proximal anastomoses were marked with small hemoclips. The partial occluding clamp was removed and the vein grafts were de-aired. The anastomoses were inspected for hemostasis. The posterior pericardial drain was brought out through a separate incision and secured with suture. Right atrial and right ventricular temporary epicardial pacing wires were placed. The patient's intrinsic rhythm was a sinus rhythm, was rather slow in the 50s and 60s. AV sequential pacing was used to wean the patient from bypass. The aortic and venous cannulae were removed. The pursestring was secured. Protamine was administered. When hemostasis was adequate, anterior mediastinal drain was placed. The pericardium was easily closed over it with running Vicryl. The cut surfaces of the sternum were treated with vancomycin paste and platelet rich GPS. The sternum was then reapproximated with #7 stainless steel wires. The soft tissues overlying the sternum were irrigated and treated with platelet poor GPS. The fascia was closed over the wires with #1 Vicryl. The subcutaneous tissue was reapproximated with 2-0 Vicryl and the skin closed with a running 3-0 Vicryl subcuticular suture. The wounds were dressed, and the patient was taken to Recovery and to the intensive care unit in stable condition. Job ID: [id number]
[2018-05-01] MEDS: Docusate 100 MG CAP PO SCH (20:56)
[2018-05-01] MEDS ORDERED: Famotidine/PF 20 mg/2ml Vial SLOW IVP SCH (21:00)
[2018-05-01] MEDS: Potassium Chloride 20 MEQ/100 ML PREMIX BAG IVPB PRN (21:54)
[2018-05-02 03:40] LABS: #Lymphocytes 1.3 thou/uL (1.20-3.40); #Monocytes 1.8 thou/uL (0.11-0.59); #Neutrophils 13.1 thou/uL (1.40-6.50); %Eosinophils 0.1 % (0.0-10.0); %Lymphocytes 7.8 % (21.0-51.0); %Monocytes 11.2 % (0.0-10.0); %Neutrophils 80.8 % (42.0-75.0); Hemoglobin 12.2 g/dL (14.0-18.0); Mean Corpuscular HGB CONC 34.7 g/dL (32.0-36.0); Mean Corpuscular Hemoglobin 31.6 pg (27.0-31.0); Mean Corpuscular Volume 91.2 fL (78.0-98.0); Platelet Count 161 thou/uL (130-400); RBC Distribution Width 12.4 % (11.5-14.5); Red Blood Cell (RBC) Count 3.84 mill/uL (4.70-6.10); White Blood Cell (WBC) Count 16.2 thou/uL (4.8-10.8)
[2018-05-02 04:01] LABS: Anion Gap 11 mmol/L (10-20); BUN (Urea Nitrogen) 16 mg/dL (8.4-25.7); Calc. Creatinine Clearance 135 mL/min (70-130); Carbon Dioxide 24 mmol/L (23-31); Chloride 109 mmol/L (98-107); Estimated GFR-MDRD Greater than 90; Glucose 130 mg/dL (83-110); Potassium 3.9 mmol/L (3.5-5.1); Sodium 140 mmol/L (136-145)
[2018-05-02] MEDS: HYDROcodone/Acetaminophen 5/325 mg Tablet PO PRN ×5 (04:20→21:02)
[2018-05-02] MEDS: Ketorolac Tromethamine 30 MG/ML VIAL IVP SCH (05:43)
[2018-05-02] MEDS: Potassium Chloride 20 MEQ/100 ML PREMIX BAG IVPB PRN (05:44)
[2018-05-02] MEDS ORDERED: Bisacodyl 5 MG TAB PO PRN (07:07)
[2018-05-02] MEDS ORDERED: Mag-Al 1200 mg/1200 mg/30 ML UDCUP PO PRN (07:07)
[2018-05-02] MEDS ORDERED: Dextrose 50% Abboject 50 ML SYRINGE SLOW IVP PRN (07:07)
[2018-05-02] MEDS ORDERED: diphenhydrAMINE 25 MG CAP PO PRN (07:07)
[2018-05-02] MEDS ORDERED: Zolpidem Tartrate 5 MG TAB PO PRN (07:07)
[2018-05-02] MEDS ORDERED: Nitroglycerin 0.4 MG TAB (25 Tab Bottle) SL PRN (07:07)
[2018-05-02] MEDS ORDERED: Artificial Tears 18 DROP/0.9 ML EA EYE PRN (07:07)
[2018-05-02] MEDS ORDERED: Bisacodyl 10 MG SUPP PR PRN (07:07)
[2018-05-02] MEDS ORDERED: Insulin Regular 300 UNITS/3 ML VIAL SC PRN (07:07)
[2018-05-02] MEDS ORDERED: Dextrose 5% in Water 1,000 ML IV PRN (07:07)
[2018-05-02] MEDS ORDERED: Mineral Oil ENEMA PR PRN (07:07)
[2018-05-02] MEDS ORDERED: Insulin Glargine 18 UNITS in Pre-Filled Syringe 1 EACH SC SCH (07:30)
--- NOTE | 2018-05-02 08:14 | RAD ---
PORTABLE CHEST: History: Respiratory distress. Extubation. Comparison: Prior day's study. FINDINGS: Endotracheal tube has been removed. Heart size is enlarged. Post op sternotomy changes again noted. R ight subclavian line unchanged in position. Bibasilar lung changes are stable. Chest tubes remain in place. IMPRESSION: Interval removal of endotracheal tube, otherwise stable appearance. POS: NADINE
[2018-05-02] MEDS ORDERED: Furosemide 40 MG/4 ML VIAL ONE ×2 (08:18→09:14)
[2018-05-02] MEDS: Aspirin 325 mg Enteric Coated Tablet PO SCH (08:21)
[2018-05-02] MEDS: Furosemide 40 MG/4 ML VIAL SLOW IVP SCH ×2 (08:21→14:09)
[2018-05-02] MEDS: Docusate 100 MG CAP PO SCH ×2 (08:21→21:01)
[2018-05-02] MEDS: Metoprolol Tartrate 25 MG TAB PO SCH ×3 (09:12→21:02)
[2018-05-02] MEDS: Lisinopril 2.5 MG TAB PO SCH ×2 (09:12→21:01)
[2018-05-02 13:49] LABS: Actual Bicarbonate (HCO3a) 21.2 mEq/L (22-28); Analyzer IN Cardio OR; Base Excess (BEa) -2.8 mEq/L (-2.0 to +3.0); CO2 Tension 34.3 mmHg (35.0-45.0); Calcium, Ionized 1.01 mmol/L (1.12-1.30); Hemoglobin (Hb) 11.8 g/dL (14.0-18.0); O2 Tension (PaO2) 469.9 mmHg (> 70.0); Potassium - ABG Lab 5.07 mmol/L (3.70-5.30); pH, Arterial 7.41 (7.35-7.45)
[2018-05-02 13:49] LABS: Actual Bicarbonate (HCO3a) 23.3 mEq/L (22-28); Analyzer IN Cardio OR; Base Excess (BEa) -3.6 mEq/L (-2.0 to +3.0); CO2 Tension 49.4 mmHg (35.0-45.0); Calcium, Ionized 1.08 mmol/L (1.12-1.30); Carboxyhemoglobin (COHb) 0.4 gm% (0.0-3.0); Hemoglobin (Hb) 13.6 g/dL (14.0-18.0); O2 Tension (PaO2) 360.2 mmHg (> 70.0); Potassium - ABG Lab 4.02 mmol/L (3.70-5.30); pH, Arterial 7.29 (7.35-7.45)
[2018-05-02 13:49] LABS: Actual Bicarbonate (HCO3a) 23.2 mEq/L (22-28); Analyzer IN Cardio OR; Base Excess (BEa) -0.4 mEq/L (-2.0 to +3.0); CO2 Tension 35.3 mmHg (35.0-45.0); Calcium, Ionized 1.08 mmol/L (1.12-1.30); Carboxyhemoglobin (COHb) 1.1 gm% (0.0-3.0); Hemoglobin (Hb) 14.8 g/dL (14.0-18.0); O2 Tension (PaO2) 277.8 mmHg (> 70.0); Potassium - ABG Lab 3.94 mmol/L (3.70-5.30); pH, Arterial 7.44 (7.35-7.45)
[2018-05-02 13:50] LABS: Actual Bicarbonate (HCO3a) 23.7 mEq/L (22-28); Analyzer IN Cardio OR; Base Excess (BEa) -0.4 mEq/L (-2.0 to +3.0); CO2 Tension 36.8 mmHg (35.0-45.0); Carboxyhemoglobin (COHb) 0.3 gm% (0.0-3.0); Hemoglobin (Hb) 11.4 g/dL (14.0-18.0); O2 Tension (PaO2) 307.6 mmHg (> 70.0); Potassium - ABG Lab 4.62 mmol/L (3.70-5.30); pH, Arterial 7.43 (7.35-7.45)
[2018-05-02 13:50] LABS: Actual Bicarbonate (HCO3v) 24 mEq/L (22-28); Analyzer IN Cardio OR; Base Excess -1.2 mEq/L (-2.0 to +3.0); Calcium, Ionized 1.01 mmol/L (1.16-1.32); Chloride (ABG LAB) 105 mmol/L (98-106); Hemoglobin (Hb) 11.8 g/dL (12.6-17.4); Potassium - ABG Lab 4.95 mmol/L (3.70-5.30); Sodium 135.9 mmol/L (133-146); pH (venous) 7.38 (7.32-7.43)
[2018-05-02 13:51] LABS: Actual Bicarbonate (HCO3a) 21.2 mEq/L (22-28); Analyzer IN Cardio OR; CO2 Tension 38.9 mmHg (35.0-45.0); Carboxyhemoglobin (COHb) 0.3 gm% (0.0-3.0); Hemoglobin (Hb) 11.7 g/dL (14.0-18.0); O2 Tension (PaO2) 337.9 mmHg (> 70.0); Potassium - ABG Lab 4.69 mmol/L (3.70-5.30); pH, Arterial 7.35 (7.35-7.45)
[2018-05-02 13:52] LABS: Puncture Site ALINE
[2018-05-02 13:53] LABS: Puncture Site ALINE
[2018-05-02 13:53] LABS: Puncture Site ALINE
[2018-05-02 13:54] LABS: Puncture Site ALINE
[2018-05-02 13:54] LABS: Puncture Site ALINE
[2018-05-02 13:58] LABS: Actual Bicarbonate (HCO3a) 21.7 mEq/L (22-28); Base Excess (BEa) -2.4 mEq/L (-2.0 to +3.0); CO2 Tension 35.3 mmHg (35.0-45.0); Hemoglobin (Hb) 12.4 g/dL (14.0-18.0); O2 Tension (PaO2) 262.9 mmHg (> 70.0); pH, Arterial 7.41 (7.35-7.45)
[2018-05-02 13:59] LABS: Calcium, Ionized 1.01 mmol/L (1.12-1.30)
[2018-05-02 14:00] LABS: Analyzer IN Cardio OR; Puncture Site ALINE
[2018-05-02 14:02] LABS: Carboxyhemoglobin (COHb) 0.4 gm% (0.0-3.0)
--- NOTE | 2018-05-02 15:38 | PRG ---
DATE OF SERVICE: 05/02/2018 SUBJECTIVE: The patient is seen and examined at bedside. I just saw him this morning walking with PT. He is doing great. He does not have much complaints to offer. OBJECTIVE: VITAL SIGNS: Blood pressure is 98/57, pulse is 88, respiratory rate is 27, O2 saturation is 95%. HEENT: His head is atraumatic and normocephalic. Eyes are PERRLA. Sclerae are nonicteric. CHEST: The dressing is in the midline with two drains coming out from underneath with bloodish fluid. Breath sounds diminished at both bases with few crackles bilaterally. HEART: S1, S2, normal. No S3. No S4. ABDOMEN: Soft, nontender, nondistended. EXTREMITIES: Left leg is wrapped and the right leg, no swelling. NEUROLOGICAL EXAMINATION: He follows my commands. He moves his all four extremities. LABORATORY DATA: Labs showed white count of 16.2, hemoglobin 12.2, hematocrit 35.1, platelet count 161,000. Sodium of 140, potassium 3.9, chloride 109 CO2 of 24, BUN 16, creatinine 0.83. Glycemia is ranging from 116 to 157. IMPRESSION: 1. Status post triple bypass surgery. 2. Elz-DU-feldirzab myocardial infarction. Continue postoperative coronary artery bypass grafting protocol per Cardiothoracic Surgery. Job ID: [id number]
[2018-05-03] MEDS: HYDROcodone/Acetaminophen 5/325 mg Tablet PO PRN ×4 (03:03→19:29)
[2018-05-03 05:35] LABS: #Lymphocytes 1.6 thou/uL (1.20-3.40); #Monocytes 1.8 thou/uL (0.11-0.59); #Neutrophils 11.9 thou/uL (1.40-6.50); %Eosinophils 0.1 % (0.0-10.0); %Lymphocytes 10.1 % (21.0-51.0); %Monocytes 11.7 % (0.0-10.0); %Neutrophils 78.1 % (42.0-75.0); Hemoglobin 10.8 g/dL (14.0-18.0); Mean Corpuscular HGB CONC 33.1 g/dL (32.0-36.0); Mean Corpuscular Hemoglobin 30.9 pg (27.0-31.0); Mean Corpuscular Volume 93.5 fL (78.0-98.0); Mean Platelet Volume 8.3 fL (7.4-10.4); Platelet Count 162 thou/uL (130-400); RBC Distribution Width 12.7 % (11.5-14.5); Red Blood Cell (RBC) Count 3.49 mill/uL (4.70-6.10); White Blood Cell (WBC) Count 15.3 thou/uL (4.8-10.8)
[2018-05-03 05:58] LABS: Anion Gap 13 mmol/L (10-20); BUN (Urea Nitrogen) 22 mg/dL (8.4-25.7); Calc. Creatinine Clearance 114 mL/min (70-130); Calcium 8.5 mg/dL (7.8-10.44); Carbon Dioxide 24 mmol/L (23-31); Chloride 103 mmol/L (98-107); Estimated GFR-MDRD 72; Glucose 128 mg/dL (83-110); Potassium 4.3 mmol/L (3.5-5.1); Sodium 136 mmol/L (136-145)
[2018-05-03] MEDS: Lisinopril 2.5 MG TAB PO SCH ×2 (08:18→19:28)
[2018-05-03] MEDS: Aspirin 325 mg Enteric Coated Tablet PO SCH (08:18)
[2018-05-03] MEDS: Docusate 100 MG CAP PO SCH (08:18)
[2018-05-03] MEDS: Metoprolol Tartrate 50 MG TAB PO SCH ×2 (08:18→19:29)
--- NOTE | 2018-05-03 09:05 | RAD ---
PORTABLE CHEST: Date; 05/03/18 COMPARISON: 05/02/18 study. HISTORY: Post CABG. FINDINGS: Heart size is enlarged with postop sternotomy change. Right subclavian line is unchanged in position. There are some atelectatic changes in the lung bases. Left chest tube unchanged in position. IMPRESSION: Essentially stable chest. POS: OFF
--- NOTE | 2018-05-03 12:17 | PRG ---
DATE OF SERVICE: 05/03/2018 SUBJECTIVE: The patient is seen and examined at the bedside. He is doing quite well. He did not have any bowel movement so far and he takes his Vicodin every 4 hours, so we are concerned about his constipation. OBJECTIVE: VITAL SIGNS: Blood pressure is 131/60, pulse is 65, temperature is 98, respiratory rate is 18, O2 saturation is 95% on room air. HEENT: His head is atraumatic and normocephalic. Eyes are PERRLA. Sclerae are nonicteric. Oral mucosa is moist. NECK: Supple. No lymphadenopathy. Thyroid is not palpable. LUNGS: Breath sounds diminished at both bases with some crackles at both bases. CHEST: Front incision in the midline of the chest is covered with drains coming out from underneath and draining some bloodish fluid. ABDOMEN: Soft, nontender. Bowel sounds are present. No organomegaly. EXTREMITIES: Left leg is wrapped secondary to vein retrieval for the surgery. The right leg does not present any swelling. NEUROLOGIC: He is alert and oriented x4. There are no any motor deficits present. Cranial nerves are intact. LABORATORY DATA: Labs showed white count of 15.3, hemoglobin 10.8, hematocrit 32.7, platelet count is 162,000. Electrolytes within normal limits. Creatinine 1.02, BUN 22. Glycemia is ranging from 116 to 137. IMPRESSION: 1. Status post triple bypass surgery. 2. Non ST-elevation myocardial infarction. 3. Hypothyroidism. 4. Constipation. PLAN: To switch him to sennosides with Colace and start him on his iodine, thyroid hormone tomorrow morning and continue postop management as recommends cardiothoracic surgeon. Job ID: [id number]
[2018-05-03] MEDS: Senokot S 8.6-50 MG TAB PO SCH (19:29)
[2018-05-03] MEDS: Guaifenesin DM 100-10/5 ML UDCUP PO PRN (21:34)
[2018-05-04 05:06] LABS: #Lymphocytes 2.6 thou/uL (1.20-3.40); #Monocytes 1.5 thou/uL (0.11-0.59); #Neutrophils 9.1 thou/uL (1.40-6.50); %Basophils 0.1 % (0.0-1.0); %Eosinophils 0.2 % (0.0-10.0); %Lymphocytes 19.3 % (21.0-51.0); %Monocytes 11.4 % (0.0-10.0); Hemoglobin 10.9 g/dL (14.0-18.0); Mean Corpuscular HGB CONC 33.4 g/dL (32.0-36.0); Mean Corpuscular Volume 95.6 fL (78.0-98.0); Mean Platelet Volume 7.9 fL (7.4-10.4); Platelet Count 180 thou/uL (130-400); RBC Distribution Width 12.3 % (11.5-14.5); Red Blood Cell (RBC) Count 3.41 mill/uL (4.70-6.10); White Blood Cell (WBC) Count 13.2 thou/uL (4.8-10.8)
[2018-05-04] MEDS: Levothyroxine Sodium 88 MCG TAB PO SCH (05:12)
[2018-05-04 05:28] LABS: Anion Gap 12 mmol/L (10-20); BUN (Urea Nitrogen) 20 mg/dL (8.4-25.7); Calc. Creatinine Clearance 146 mL/min (70-130); Calcium 8.7 mg/dL (7.8-10.44); Carbon Dioxide 27 mmol/L (23-31); Chloride 103 mmol/L (98-107); Estimated GFR-MDRD Greater than 90; Glucose 112 mg/dL (83-110); Potassium 3.9 mmol/L (3.5-5.1); Sodium 138 mmol/L (136-145)
[2018-05-04] MEDS: Aspirin 325 mg Enteric Coated Tablet PO SCH (08:12)
[2018-05-04] MEDS: Lisinopril 2.5 MG TAB PO SCH ×2 (08:12→20:07)
[2018-05-04] MEDS: Metoprolol Tartrate 50 MG TAB PO SCH ×2 (08:12→20:07)
[2018-05-04] MEDS: HYDROcodone/Acetaminophen 5/325 mg Tablet PO PRN ×3 (08:12→20:13)
[2018-05-04] MEDS: Guaifenesin DM 100-10/5 ML UDCUP PO PRN ×2 (08:13→19:24)
[2018-05-04] MEDS: Senokot S 8.6-50 MG TAB PO SCH ×2 (08:17→20:08)
--- NOTE | 2018-05-04 08:17 | RAD ---
PORTABLE CHEST: DATE: 05/04/2018. PROVIDED CLINICAL HISTORY: Post CABG. FINDINGS: Comparison is made with the study dated 05/03/2018. Significant interval change with respect to the p rior examination is not apparent. IMPRESSION: As above. POS: OFF
--- NOTE | 2018-05-04 13:02 | PDOC.PN ---
- Subjective Encounter Start Date: 05/04/18 Encounter Start Time: 12:30 Patient seen and examined for CP. No CP/SOB. No new complaints. No overnight events - Objective Resuscitation Status - Order Detail: 04/27/18 04:11 Resuscitation Status Routine Resuscitation Status: FULL: Full Resuscitation MAR Reviewed: Yes Vital Signs & Weight: Vital Signs (12 hours) Temp Pulse Resp BP BP Pulse Ox 05/04/18 11:51 98.4 F 111 H 18 120/77 96 05/04/18 08:05 93 L 05/04/18 07:51 97.6 F 109 H 20 144/76 H 94 L 05/04/18 03:40 97.5 F L 107 H 16 136/80 92 L Weight Weight 265 lb 1.6 oz Most Recent Monitor Data Heart Rate from ECG 85 NIBP 105/42 NIBP BP-Mean 63 Respiration from ECG 25 SpO2 96 I&O: 05/03/18 05/04/18 05/05/18 06:59 06:59 06:59 Intake Total 1554 480 Output Total 1635 350 Balance -81 130 Result Diagrams: 05/04/18 04:46 05/04/18 04:46 Additional Labs: Accuchecks 05/04/18 05/04/18 05/03/18 11:14 05:23 20:33 POC Glucose 104 105 133 H 05/03/18 16:35 POC Glucose 118 H EKG Reviewed by me: Yes (Tele A flutter) Phys Exam - Physical Examination Constitutional: NAD Respiratory: no wheezing, no rhonchi Cardiovascular: RRR, no rub chest tube + Gastrointestinal: soft, non-tender, positive bowel sounds Musculoskeletal: no edema Neurological: moves all 4 limbs Dx/Plan (1) NSTEMI (non-ST elevated myocardial infarction) Code(s): I21.4 - NON-ST ELEVATION (NSTEMI) MYOCARDIAL INFARCTION Status: Acute (2) CAD (coronary artery disease) Code(s): I25.10 - ATHSCL HEART DISEASE OF [place] CORONARY ARTERY W/O ANG PCTRS Status: Acute Comment: s/p CABG this admission (3) Atrial flutter Code(s): I48.92 - UNSPECIFIED ATRIAL FLUTTER Status: Acute Comment: with long pauses (4) Obesity (BMI 30.0-34.9) Code(s): E66.9 - OBESITY, UNSPECIFIED Status: Chronic (5) Hypothyroidism Code(s): E03.9 - HYPOTHYROIDISM, UNSPECIFIED Status: Chronic - Plan cont current plan of care, DVT proph w/SCDs Ablation today -: Cont ASA and other meds as below Review of Systems - Review of Systems Cardiovascular: negative: chest pain, palpitations, orthopnea, paroxysmal nocturnal dyspnea, edema, light headedness, other Gastrointestinal: negative: Nausea, Vomiting, Abdominal Pain, Diarrhea, Constipation, Melena, Hematochezia, Other - Medications/Allergies Allergies/Adverse Reactions: Allergies Allergy/AdvReac Type Severity Reaction Status Date / Time codeine Allergy Rash Verified 04/27/18 02:28 Penicillins Allergy Rash Verified 04/27/18 02:28 Medications: Current Medications Hydrocodone Bitart/Acetaminophen ([place] 5/325) 1 tab PO Q4H PRN PRN Reason: Moderate Pain (4-6) Last Admin: 05/04/18 08:12 Dose: 1 tab Hydrocodone Bitart/Acetaminophen ([place] 5/325) 2 tab PO Q4H PRN PRN Reason: Severe Pain (7-10) Last Admin: 05/02/18 12:39 Dose: 2 tab Al Hydroxide/Mg Hydroxide (Maalox) 30 ml PO Q4H PRN PRN Reason: Indigestion Albuterol/Ipratropium (Duoneb) 3 ml NEB A2AQ-XL PRN PRN Reason: SHORTNESS OF BREATH Artificial Tears (Tears Naturale) 0 drop EA EYE PRN PRN PRN Reason: Dry Eyes Aspirin (Ecotrin) 325 mg PO DAILY MARLA Last Admin: 05/04/18 08:12 Dose: 325 mg Bisacodyl (Dulcolax) 10 mg PO Q12H PRN PRN Reason: Constipation Bisacodyl (Dulcolax) 10 mg WA Q12H PRN PRN Reason: Constipation Dextrose/Water (Dextrose 50%) 25 gm SLOW IVP PRN PRN PRN Reason: Hypoglycemia Diphenhydramine HCl (Benadryl) 25 mg PO Q6H PRN PRN Reason: Itching & Insomnia or Gilles Juan Manuel Glucagon (Glucagon) 1 mg IM PRN PRN PRN Reason: Hypoglycemia Guaifenesin/Dextromethorphan (Robitussin Dm) 15 ml PO Q4H PRN PRN Reason: Cough Last Admin: 05/04/18 08:13 Dose: 15 ml Dextrose/Water (D5w) 1,000 mls @ 0 mls/hr IV .Q0M PRN PRN Reason: Hypoglycemia Insulin Human Regular (Humulin R) 0 units SC .MODERATE SLIDING SC PRN PRN Reason: Moderate Correctional Scale Levothyroxine Sodium (Synthroid) 88 mcg PO 0600 [facility] Last Admin: 05/04/18 05:12 Dose: 88 mcg Lisinopril (Zestril) 2.5 mg PO BID [facility] Last Admin: 05/04/18 08:12 Dose: 2.5 mg Metoprolol Tartrate (Lopressor) 50 mg PO BID [facility] Last Admin: 05/04/18 08:12 Dose: 50 mg Mineral Oil (Fleet Mineral Oil) 133 ml WA DAILYPRN PRN PRN Reason: Constipation Nitroglycerin (Nitrostat) 0.4 mg SL Q5MIN PRN PRN Reason: Chest Pain Ondansetron HCl (Zofran) 4 mg IVP Q6H PRN PRN Reason: Nausea/Vomiting Senna/Docusate Sodium (Senokot S) 1 tab PO BID [facility] Last Admin: 05/04/18 08:17 Dose: 1 tab Sodium Chloride (Flush - Normal Saline) 10 ml IVF Q12HR [facility] Last Admin: 05/04/18 11:50 Dose: 10 ml Zolpidem Tartrate (Ambien) 5 mg PO HSPRN PRN PRN Reason: Insomnia
[2018-05-04] MEDS ORDERED: Heparin 10,000 UNITS/1 ML VIAL ONE (14:22)
[2018-05-04] MEDS ORDERED: Lidocaine 1% (PF) 30 ML VIAL ONE (14:36)
[2018-05-04] MEDS ORDERED: Isoproterenol 0.2 MG/1 ML AMP ONE (14:42)
[2018-05-04] MEDS ORDERED: PROPOFOL 20 ML ONE (15:16)
[2018-05-04] MEDS ORDERED: DOPamine 400 MG/D5W 250 ML 250 ML ONE (15:19)
[2018-05-04] MEDS ORDERED: Amiodarone 150 MG/3 ML VIAL ONE (15:40)
[2018-05-04] MEDS ORDERED: Ondansetron HCl/PF 4 MG/2 ML Vial IVP PRN (16:16)
[2018-05-04] MEDS ORDERED: Promethazine HCl 25 MG/ML VIAL IM PRN (16:16)
[2018-05-04] MEDS ORDERED: Promethazine HCl 25 MG/ML VIAL SLOW IVP PRN (16:16)
[2018-05-04] MEDS ORDERED: PROPOFOL 200 MG/20 ML VIAL ONE (16:43)
[2018-05-04] MEDS ORDERED: Metoprolol Tartrate 5 MG/5 ML VIAL ONE (19:57)
[2018-05-04] MEDS ORDERED: Metoprolol Tartrate 5 MG/5 ML VIAL IVP SCH (20:00)
[2018-05-04] MEDS: Amiodarone 200 MG TAB PO SCH (20:07)
--- NOTE | 2018-05-04 20:11 | EKG ---
Test Reason : ROUTINE Blood Pressure : / mmHG Vent. Rate : 052 BPM Atrial Rate : 052 BPM P-R Int : 166 ms QRS Dur : 090 ms QT Int : 442 ms P-R-T Axes : 014 -28 006 degrees QTc Int : 411 ms Sinus bradycardia with marked sinus arrhythmia Minimal voltage criteria for LVH, may be normal variant Borderline ECG When compared with ECG of 26-APR-2018 22:11, Sinus rhythm has replaced Atrial flutter Vent. rate has decreased BY [address] no longer depressed in Inferior leads ST no longer depressed in Lateral leads T wave inversion less evident in Inferior leads Confirmed by Jerry ROYAL ([id number]) on 05/04/2018 8:10:56 PM Referred By: GUILLERMO Confirmed By:Jerry ROYAL
--- NOTE | 2018-05-04 20:40 | EKG ---
Test Reason : POST CABG Blood Pressure : / mmHG Vent. Rate : 058 BPM Atrial Rate : 058 BPM P-R Int : 164 ms QRS Dur : 092 ms QT Int : 466 ms P-R-T Axes : 029 -27 024 degrees QTc Int : 457 ms Sinus bradycardia Possible Inferior infarct , age undetermined Abnormal ECG Confirmed by Jerry ROYAL ([id number]) on 05/04/2018 8:40:25 PM Referred By: ANTONIO Confirmed By:Jerry ROYAL
--- NOTE | 2018-05-04 21:13 | OP ---
DATE OF PROCEDURE: 05/04/2018 REFERRING PHYSICIAN: Dr. Park. REASON FOR PROCEDURE: Mr. Gallego is a 72-year-old man with a presentation with typical atrial flutter and non-ST elevation myocardial infarction on the . He underwent ischemic workup demonstrating two vessel disease and subsequent bypass grafting surgery performed. Now, postoperatively atrial fibrillation with RVR seen on occasion. He has significant pausing with up to 7.8 seconds on occasion at the time of conversion. He also has occasional atrial fibrillation detected, but the predominant rhythm is atrial flutter. DESCRIPTION OF PROCEDURE: The patient received propofol by Anesthesia specialist. Right femoral venous area was prepped, draped, and anesthetized with subcutaneous lidocaine and with ultrasound guidance, the right femoral vein was cannulated x2. Two 8-[place]izen [place] short sheaths were introduced through which a [employer] SFST catheter was used to obtain 3D map of the right atrium, His bundle, CS, and cavotricuspid isthmus area. Subsequently, a [employer] SFST catheter was used to cannulate the CS. Pacing, mapping and recording were performed. The baseline rhythm was intermittent atrial flutter with ventricular rates of 110 to 120. AV conduction was seen. The cycle length was 230 milliseconds. The CS activation as well as post pacing intervals were suggesting a right atrial flutter. The post pacing interval at the cavotricuspid isthmus recorded the tachycardia cycle length. During atrial flutter, cavotricuspid isthmus ablation was performed during, which the atrial flutter terminated. The transisthmus line prolonged to 136 milliseconds and the transisthmus time increased to 136 milliseconds. Unidirectional block was demonstrated by longest post pacing interval by the ablation line. Post ablation, we have seen intermittent atrial fibrillation, which on occasion persisted and required cardioversion. Dopamine was also administered and on dopamine, recheck of the isthmus line was performed. End of the case, no significant change in the cardiac silhouette was noted. The patient tolerated the procedure well. PLAN: The patient will likely require antiarrhythmic agents for suppressing the arrhythmia. Consider Amiodarone vs Tikosyn. If bradycardia still persists pacing and switching to amiodarone could be considered for rate control. Will use temporary ppm wires in the i ternim to avoid prolonged pauses observed. During EP study, baseline cycle length 836 milliseconds, HI 165, QRS 88, QT 369 milliseconds. Again, long pausing and bradycardia noted on occasion on conversion to sinus rhythm. Job ID: [id number] MTDD
--- NOTE | 2018-05-04 23:00 | CON ---
DATE OF CONSULTATION: 05/04/2018 REFERRING PHYSICIAN: Dr. Zacarias Park REASON FOR CONSULTATION: Atrial arrhythmias and cardiac pauses. TIME OF CONSULTATION: 10:00 a.m. HISTORY OF PRESENT ILLNESS: Mr. Gallego is a pleasant 72-year-old gentleman who came in to the hospital reporting central chest pressure with shortness of breath. He was brought in via EMS and en route he was found to have an irregular rapid heart rhythm suggesting atrial flutter. He was given aspirin and nitroglycerin and the pain resolved. He was also given therapeutic Lovenox in the ER. He was taken to the label drier and was found to have a [id number] CT. Cardiac cath revealed 3-vessel coronary artery disease with a low to normal preserved ejection fraction of 55%. On 05/01/2018, he underwent coronary artery bypass grafting x3 with SANDERS to the LAD, saphenous graft to the 2nd OM and to the PDA. He also underwent ligation of the left atrial appendage. He is currently upright in a chair in his room. Chest tube remains in place. Epicardial pacing wires remain in place, but not in use. He has had paroxysmal episodes of typical atrial flutter as well as atrial fibrillation. When he converts to sinus rhythm, he is seen to have conversion pauses up to 7.8 seconds in duration. He is asymptomatic with these. There has been no dizziness or loss of conscious. He does not feel any heart racing or palpitations. REVIEW OF SYSTEMS: A 12-point review of systems was conducted and is negative except that listed above in the HPI. PAST MEDICAL HISTORY: 1. Vocal cord cancer. 2. Multiple back orthopedic procedures. 3. Multiple knee orthopedic procedures. 4. Irregular heartbeat/ "ectopy". Initially resulting in Lopressor initiation. 5. Coronary artery disease, status post 3-vessel bypass grafting on 05/01/2018. 6. Hypothyroidism. HOME MEDICATIONS: 1. Zyrtec 10 mg daily. 2. Prilosec 20 mg daily. 3. Synthroid 88 mcg daily. 4. Lopressor 25 mg daily. 5. AndroGel topically. ALLERGIES: 1. PENICILLIN CAUSES A RASH. 2. CODEINE CAUSES A RASH, BUT DOES TOLERATE HYDROCODONE ON MULTIPLE OCCASIONS WITHOUT CROSS SENSITIVITY. 3. MUSCLE CRAMPS ON STATINS. SOCIAL HISTORY: Remote history of tobacco use, quit many years ago. Negative for alcohol. Negative for illicit drug use. FAMILY HISTORY: Negative for sudden cardiac or early-onset coronary artery disease. Positive for COPD and renal failure. Positive for Parkinson disease and dementia. OBJECTIVE: VITAL SIGNS: Temperature 97.6, pulse 109, oxygen is 94% on room air , respirations 20, blood pressure 144/76. GENERAL: The patient is alert and oriented. He is in no apparent distress. He is resting comfortably in the chair during the exam. He ambulates without difficulty to the bathroom with standby assistance. HEENT: He is normocephalic and atraumatic. Sclerae anicteric. EOMs are intact. Oral mucosa is moist and pink with adequate dentition. NECK: Supple without jugular venous distention. LUNGS: Clear to auscultation bilaterally without wheezes, crackles, or rhonchi. HEART: Heart rate is currently regularly regular. PMI is nondisplaced. There is a fresh sternal incision. Dressing is clean, dry, and intact. There is a chest tube in place with serosanguineous drainage. Pacer wires are coiled and bandaged on the chest. EXTREMITIES: Warm and dry to touch with some mild edema that is nonpitting. Bandages in place over the saphenous graft sites. NEUROLOGIC: Grossly intact and nonfocal. DATABASE: EKG and telemetry review, currently sinus rhythm, but with paroxysmal typical atrial flutter as well as paroxysmal atrial fibrillation. Sick sinus syndrome with prolonged conversion pauses up to 7.8 seconds in duration are seen. LABORATORY DATA: Hematology was reviewed. WBC 13.2, hemoglobin 10.9, platelet count is 180, potassium 3.9, creatinine 0.79. TSH is 1.37. IMPRESSION: 1. Typical atrial flutter, pre and post bypass. 2. Paroxysmal atrial fibrillation. 3. Sick sinus syndrome with prolonged conversion pauses up to 7.8 seconds in duration. 4. Non ST-elevation myocardial infarction status post coronary artery bypass grafting x3 vessels. 5. Left atrial appendage ligation during open heart surgery. PLAN: Recommendation is to move forward with a CTI ablation to address his typical atrial flutter. Since he recently had a bypass, we will consider 3 months short-term course of amiodarone for arrhythmia suppression. Wean off and limit use of AV la nena blocking agents given his conversion pauses. For now, I would recommend keeping the epicardial pacing wires in place, in case profound bradycardia is seen, but all pauses have been seen in the setting of converting from his flutter to sinus rhythm. Hence the baseline sinus node dysfunction and amiodarone use, permanent pacemaker implantation will likely be necessary, possibly next week. in the internim, I would attach pt to an external pacemaker via the temporary wires in place. We discussed risks, benefits, and alternatives. Risks of ablation include bleeding at the groin site, pericardial effusion, bradycardic arrhythmias, and need for chest tube insertion. The patient voices understanding and wishes to proceed with the flutter ablation later today as he is n.p.o. We also discussed oral anticoagulation, which he will require both post ablation and also to address his atrial fibrillation. Thank you for allowing us to participate in the care of this patient. We will continue to follow. Job ID: [id number]
[2018-05-05] MEDS: Guaifenesin DM 100-10/5 ML UDCUP PO PRN ×4 (00:21→19:54)
[2018-05-05] MEDS: HYDROcodone/Acetaminophen 5/325 mg Tablet PO PRN ×4 (00:22→19:53)
[2018-05-05 05:08] LABS: #Lymphocytes 1.5 thou/uL (1.20-3.40); #Monocytes 1.3 thou/uL (0.11-0.59); #Neutrophils 6.8 thou/uL (1.40-6.50); %Eosinophils 0.5 % (0.0-10.0); %Lymphocytes 15.4 % (21.0-51.0); %Monocytes 13.1 % (0.0-10.0); Hemoglobin 10.3 g/dL (14.0-18.0); Mean Corpuscular HGB CONC 33.5 g/dL (32.0-36.0); Mean Corpuscular Hemoglobin 31.9 pg (27.0-31.0); Mean Corpuscular Volume 95.3 fL (78.0-98.0); Mean Platelet Volume 7.3 fL (7.4-10.4); Platelet Count 235 thou/uL (130-400); RBC Distribution Width 12.2 % (11.5-14.5); Red Blood Cell (RBC) Count 3.22 mill/uL (4.70-6.10); White Blood Cell (WBC) Count 9.6 thou/uL (4.8-10.8)
[2018-05-05 05:27] LABS: Anion Gap 11 mmol/L (10-20); BUN (Urea Nitrogen) 16 mg/dL (8.4-25.7); Calc. Creatinine Clearance 186 mL/min (70-130); Calcium 8.6 mg/dL (7.8-10.44); Carbon Dioxide 26 mmol/L (23-31); Chloride 104 mmol/L (98-107); Estimated GFR-MDRD Greater than 90; Glucose 94 mg/dL (83-110); Magnesium 1.8 mg/dL (1.6-2.6); Potassium 3.9 mmol/L (3.5-5.1); Sodium 137 mmol/L (136-145)
[2018-05-05] MEDS: Levothyroxine Sodium 88 MCG TAB PO SCH (06:17)
[2018-05-05] MEDS: Lisinopril 2.5 MG TAB PO SCH ×2 (08:36→19:56)
[2018-05-05] MEDS: Amiodarone 200 MG TAB PO SCH ×3 (08:36→19:56)
[2018-05-05] MEDS: Senokot S 8.6-50 MG TAB PO SCH ×2 (08:37→19:57)
[2018-05-05] MEDS: Metoprolol Tartrate 50 MG TAB PO SCH (08:37)
[2018-05-05] MEDS: Aspirin 325 mg Enteric Coated Tablet PO SCH (08:37)
--- NOTE | 2018-05-05 21:02 | PDOC.PN ---
- Subjective Encounter Start Date: 05/05/18 Encounter Start Time: 11:30 Patient seen and examined for NSTEMI. No new complaints. No overnight events - Objective Resuscitation Status - Order Detail: 04/27/18 04:11 Resuscitation Status Routine Resuscitation Status: FULL: Full Resuscitation MAR Reviewed: Yes Vital Signs & Weight: Vital Signs (12 hours) Temp Pulse BP 05/05/18 19:56 80 127/80 05/05/18 19:00 98.7 F 05/05/18 16:00 98.4 F 05/05/18 12:00 98.2 F Weight Weight 258 lb 9.636 oz Most Recent Monitor Data Heart Rate from ECG 81 NIBP 165/91 NIBP BP-Mean 115 Respiration from ECG 21 SpO2 96 I&O: 05/04/18 05/05/18 05/06/18 06:59 06:59 06:59 Intake Total 531 892 0590 Output Total 350 720 250 Balance 130 -160 980 Result Diagrams: 05/06/18 04:17 05/06/18 04:17 Additional Labs: Accuchecks 05/05/18 05/05/18 05/05/18 20:01 16:48 11:08 POC Glucose 108 128 H 156 H 05/05/18 04:54 POC Glucose 95 EKG Reviewed by me: Yes (Tele Afib/flutter) Phys Exam - Physical Examination Constitutional: NAD Respiratory: no wheezing, no rhonchi Cardiovascular: no rub, irregular temp pacemaker in place Gastrointestinal: soft, non-tender, positive bowel sounds Musculoskeletal: no edema Dx/Plan (1) NSTEMI (non-ST elevated myocardial infarction) Code(s): I21.4 - NON-ST ELEVATION (NSTEMI) MYOCARDIAL INFARCTION Status: Acute (2) CAD (coronary artery disease) Code(s): I25.10 - ATHSCL HEART DISEASE OF [place] CORONARY ARTERY W/O ANG PCTRS Status: Acute Comment: s/p CABG this admission (3) Atrial flutter Code(s): I48.92 - UNSPECIFIED ATRIAL FLUTTER Status: Acute Comment: with long pauses s/p ablation (4) Obesity (BMI 30.0-34.9) Code(s): E66.9 - OBESITY, UNSPECIFIED Status: Chronic (5) Hypothyroidism Code(s): E03.9 - HYPOTHYROIDISM, UNSPECIFIED Status: Chronic (6) Other issues per previous notes Status: Acute - Plan cont current plan of care, DVT proph w/SCDs in CCU for close monitoring -: AM labs -: ?Permanent pacemaker -: Cont to monitor Review of Systems - Review of Systems Cardiovascular: negative: chest pain, palpitations, orthopnea, paroxysmal nocturnal dyspnea, edema, light headedness, other Gastrointestinal: negative: Nausea, Vomiting, Abdominal Pain, Diarrhea, Constipation, Melena, Hematochezia, Other - Medications/Allergies Allergies/Adverse Reactions: Allergies Allergy/AdvReac Type Severity Reaction Status Date / Time codeine Allergy Rash Verified 04/27/18 02:28 Penicillins Allergy Rash Verified 04/27/18 02:28 Medications: Current Medications Hydrocodone Bitart/Acetaminophen ([place] 5/325) 1 tab PO Q4H PRN PRN Reason: Moderate Pain (4-6) Last Admin: 05/05/18 19:53 Dose: 1 tab Hydrocodone Bitart/Acetaminophen ([place] 5/325) 2 tab PO Q4H PRN PRN Reason: Severe Pain (7-10) Last Admin: 05/02/18 12:39 Dose: 2 tab Al Hydroxide/Mg Hydroxide (Maalox) 30 ml PO Q4H PRN PRN Reason: Indigestion Albuterol/Ipratropium (Duoneb) 3 ml NEB [id number] PRN PRN Reason: SHORTNESS OF BREATH Amiodarone HCl (Cordarone) 400 mg PO TID [facility] Last Admin: 05/05/18 19:56 Dose: 400 mg Artificial Tears (Tears Naturale) 0 drop EA EYE PRN PRN PRN Reason: Dry Eyes Aspirin (Ecotrin) 325 mg PO DAILY [facility] Last Admin: 05/05/18 08:37 Dose: 325 mg Bisacodyl (Dulcolax) 10 mg PO Q12H PRN PRN Reason: Constipation Bisacodyl (Dulcolax) 10 mg [place] Q12H PRN PRN Reason: Constipation Dextrose/Water (Dextrose 50%) 25 gm SLOW IVP PRN PRN PRN Reason: Hypoglycemia Diphenhydramine HCl (Benadryl) 25 mg PO Q6H PRN PRN Reason: Itching & Insomnia or Gilles Juan Manuel Glucagon (Glucagon) 1 mg IM PRN PRN PRN Reason: Hypoglycemia Guaifenesin/Dextromethorphan (Robitussin Dm) 15 ml PO Q4H PRN PRN Reason: Cough Last Admin: 05/05/18 19:54 Dose: 15 ml Dextrose/Water (D5w) 1,000 mls @ 0 mls/hr IV .Q0M PRN PRN Reason: Hypoglycemia Insulin Human Regular (Humulin R) 0 units SC .MODERATE SLIDING SC PRN PRN Reason: Moderate Correctional Scale Levothyroxine Sodium (Synthroid) 88 mcg PO 0600 [facility] Last Admin: 05/05/18 06:17 Dose: 88 mcg Lisinopril (Zestril) 2.5 mg PO BID [facility] Last Admin: 05/05/18 19:56 Dose: 2.5 mg Mineral Oil (Fleet Mineral Oil) 133 ml [place] DAILYPRN PRN PRN Reason: Constipation Nitroglycerin (Nitrostat) 0.4 mg SL Q5MIN PRN PRN Reason: Chest Pain Ondansetron HCl (Zofran) 4 mg IVP Q6H PRN PRN Reason: Nausea/Vomiting Senna/Docusate Sodium (Senokot S) 1 tab PO BID [facility] Last Admin: 05/05/18 19:57 Dose: Not Given Sodium Chloride (Flush - Normal Saline) 10 ml IVF Q12HR [facility] Last Admin: 05/05/18 19:57 Dose: 10 ml Zolpidem Tartrate (Ambien) 5 mg PO HSPRN PRN PRN Reason: Insomnia
[2018-05-06] MEDS: Guaifenesin DM 100-10/5 ML UDCUP PO PRN ×5 (02:01→19:27)
[2018-05-06 04:41] LABS: Hemoglobin 10.3 g/dL (14.0-18.0); Mean Corpuscular HGB CONC 33.4 g/dL (32.0-36.0); Mean Corpuscular Hemoglobin 31.5 pg (27.0-31.0); Mean Corpuscular Volume 94.5 fL (78.0-98.0); Mean Platelet Volume 6.9 fL (7.4-10.4); Platelet Count 282 thou/uL (130-400); RBC Distribution Width 12.1 % (11.5-14.5); Red Blood Cell (RBC) Count 3.27 mill/uL (4.70-6.10); White Blood Cell (WBC) Count 8.8 thou/uL (4.8-10.8)
[2018-05-06 04:50] LABS: Anion Gap 14 mmol/L (10-20); BUN (Urea Nitrogen) 11 mg/dL (8.4-25.7); Calc. Creatinine Clearance 176 mL/min (70-130); Calcium 8.6 mg/dL (7.8-10.44); Carbon Dioxide 26 mmol/L (23-31); Chloride 103 mmol/L (98-107); Estimated GFR-MDRD Greater than 90; Glucose 111 mg/dL (83-110); Potassium 3.6 mmol/L (3.5-5.1); Sodium 139 mmol/L (136-145)
[2018-05-06] MEDS ORDERED: Potassium Chloride 20 MEQ TAB PO SCH (05:45)
[2018-05-06] MEDS: Levothyroxine Sodium 88 MCG TAB PO SCH (06:12)
[2018-05-06] MEDS: HYDROcodone/Acetaminophen 5/325 mg Tablet PO PRN ×3 (06:15→19:26)
[2018-05-06 06:53] LABS: Band 17 % (5-11); Lymphocytes 18 % (21-51); MDiff Complete? YES; Monocytes 15 % (0-10); Neutrophil 50 % (42-75)
[2018-05-06] MEDS: Aspirin 325 mg Enteric Coated Tablet PO SCH (08:33)
[2018-05-06] MEDS: Senokot S 8.6-50 MG TAB PO SCH ×2 (08:33→21:20)
[2018-05-06] MEDS: Lisinopril 2.5 MG TAB PO SCH ×2 (08:33→20:52)
[2018-05-06] MEDS: Amiodarone 200 MG TAB PO SCH ×3 (08:34→20:52)
[2018-05-06] MEDS ORDERED: Loratadine 10 MG TAB PO SCH (12:15)
[2018-05-06] MEDS: Metoprolol Tartrate 5 MG/5 ML VIAL IVP SCH ×2 (16:30→19:43)
--- NOTE | 2018-05-06 19:19 | PDOC.PN ---
- Subjective Encounter Start Date: 05/06/18 Encounter Start Time: 15:00 Patient seen and examined for NSTEMI. No new complaints. No overnight events - Objective Resuscitation Status - Order Detail: 04/27/18 04:11 Resuscitation Status Routine Resuscitation Status: FULL: Full Resuscitation MAR Reviewed: Yes Vital Signs & Weight: Vital Signs (12 hours) Temp Pulse BP Pulse Ox 05/06/18 16:00 98.5 F 05/06/18 12:00 98 F 05/06/18 08:33 80 127/80 05/06/18 08:00 98.5 F 98 Weight Weight 257 lb 7.999 oz Most Recent Monitor Data Heart Rate from ECG 96 NIBP 151/84 NIBP BP-Mean 106 Respiration from ECG 20 SpO2 93 I&O: 05/05/18 05/06/18 05/07/18 06:59 06:59 06:59 Intake Total 560 1890 300 Output Total 720 750 365 Balance -160 1140 -65 Result Diagrams: 05/06/18 04:17 05/06/18 04:17 Additional Labs: Accuchecks 05/06/18 05/06/18 05/06/18 17:33 12:13 07:39 POC Glucose 112 H 87 118 H 05/05/18 20:01 POC Glucose 108 EKG Reviewed by me: Yes (Tele Aflutter) Phys Exam - Physical Examination Constitutional: NAD Respiratory: no wheezing, no rhonchi Cardiovascular: RRR, no rub Gastrointestinal: soft, positive bowel sounds Musculoskeletal: no edema Dx/Plan (1) NSTEMI (non-ST elevated myocardial infarction) Code(s): I21.4 - NON-ST ELEVATION (NSTEMI) MYOCARDIAL INFARCTION Status: Acute (2) CAD (coronary artery disease) Code(s): I25.10 - ATHSCL HEART DISEASE OF [place] CORONARY ARTERY W/O ANG PCTRS Status: Acute Comment: s/p CABG this admission (3) Atrial flutter Code(s): I48.92 - UNSPECIFIED ATRIAL FLUTTER Status: Acute Comment: with long pauses s/p ablation (4) Obesity (BMI 30.0-34.9) Code(s): E66.9 - OBESITY, UNSPECIFIED Status: Chronic (5) Hypothyroidism Code(s): E03.9 - HYPOTHYROIDISM, UNSPECIFIED Status: Chronic (6) Other issues per previous notes - Plan cont current plan of care, DVT proph w/SCDs Permanent pacemaker in AM -: Cont CCU monitoring -: Cont current meds as below -: AM labs Review of Systems - Review of Systems Respiratory: negative: Cough, Dry, Shortness of Breath, Hemoptysis, SOB with Excertion, Pleuritic Pain, Sputum, Wheezing Cardiovascular: negative: chest pain, palpitations, orthopnea, paroxysmal nocturnal dyspnea, edema, light headedness, other - Medications/Allergies Allergies/Adverse Reactions: Allergies Allergy/AdvReac Type Severity Reaction Status Date / Time codeine Allergy Rash Verified 04/27/18 02:28 Penicillins Allergy Rash Verified 04/27/18 02:28 Medications: Current Medications Hydrocodone Bitart/Acetaminophen ([place] 5/325) 1 tab PO Q4H PRN PRN Reason: Moderate Pain (4-6) Last Admin: 05/06/18 14:51 Dose: 1 tab Hydrocodone Bitart/Acetaminophen ([place] 5/325) 2 tab PO Q4H PRN PRN Reason: Severe Pain (7-10) Last Admin: 05/02/18 12:39 Dose: 2 tab Al Hydroxide/Mg Hydroxide (Maalox) 30 ml PO Q4H PRN PRN Reason: Indigestion Albuterol/Ipratropium (Duoneb) 3 ml NEB [id number] PRN PRN Reason: SHORTNESS OF BREATH Amiodarone HCl (Cordarone) 400 mg PO TID [facility] Last Admin: 05/06/18 14:48 Dose: 400 mg Artificial Tears (Tears Naturale) 0 drop EA EYE PRN PRN PRN Reason: Dry Eyes Aspirin (Ecotrin) 325 mg PO DAILY [facility] Last Admin: 05/06/18 08:33 Dose: 325 mg Bisacodyl (Dulcolax) 10 mg PO Q12H PRN PRN Reason: Constipation Bisacodyl (Dulcolax) 10 mg [place] Q12H PRN PRN Reason: Constipation Dextrose/Water (Dextrose 50%) 25 gm SLOW IVP PRN PRN PRN Reason: Hypoglycemia Diphenhydramine HCl (Benadryl) 25 mg PO Q6H PRN PRN Reason: Itching & Insomnia or Gilles Juan Manuel Glucagon (Glucagon) 1 mg IM PRN PRN PRN Reason: Hypoglycemia Guaifenesin/Dextromethorphan (Robitussin Dm) 15 ml PO Q4H PRN PRN Reason: Cough Last Admin: 05/06/18 15:44 Dose: 15 ml Dextrose/Water (D5w) 1,000 mls @ 0 mls/hr IV .Q0M PRN PRN Reason: Hypoglycemia Insulin Human Regular (Humulin R) 0 units SC .MODERATE SLIDING SC PRN PRN Reason: Moderate Correctional Scale Ipratropium [place] (Atrovent 0.03%) 1 ml EA NARE BID COUNT [facility]CLUDES [facility] Levothyroxine Sodium (Synthroid) 88 mcg PO 0600 [facility] Last Admin: 05/06/18 06:12 Dose: 88 mcg Lisinopril (Zestril) 2.5 mg PO BID [facility] Last Admin: 05/06/18 08:33 Dose: 2.5 mg Loratadine (Claritin) 10 mg PO DAILY [facility] Mineral Oil (Fleet Mineral Oil) 133 ml [place] DAILYPRN PRN PRN Reason: Constipation Nitroglycerin (Nitrostat) 0.4 mg SL Q5MIN PRN PRN Reason: Chest Pain Ondansetron HCl (Zofran) 4 mg IVP Q6H PRN PRN Reason: Nausea/Vomiting Senna/Docusate Sodium (Senokot S) 1 tab PO BID [facility] Last Admin: 05/06/18 08:33 Dose: 1 tab Sodium Chloride (Flush - Normal Saline) 10 ml IVF Q12HR [facility]CLUD[facility] Last Admin: 05/06/18 11:27 Dose: 10 ml Zolpidem Tartrate (Ambien) 5 mg PO HSPRN PRN PRN Reason: Insomnia
--- NOTE | 2018-05-06 19:19 | PRG ---
DATE OF SERVICE: 05/06/2018 SUBJECTIVE: Lashonda is tentatively on the schedule for pacemaker tomorrow. He has no complaints. OBJECTIVE: VITAL SIGNS: His vital signs have been stable. He is afebrile, heart rate in the 70s, and blood pressure 133/75. LUNGS: Clear. HEART: Regular rhythm. ABDOMEN: Soft. His only complaint was sinus drainage. I added Claritin. We will continue to follow the other physicians caring formalized in the critical care unit. Job ID: [id number]
--- NOTE | 2018-05-06 19:53 | CON ---
DATE OF CONSULTATION: 05/06/2018 HISTORY OF PRESENT ILLNESS: Mr. Gallego was admitted to the critical care unit after presenting with chest pain and shortness of breath. He was felt to be in atrial flutter. He had an ST-elevation LA that led to cardiac catheterization. He had ligation of his atrial appendage and coronary artery bypass grafting x3. He was transferred back into the ICU. I was consulted because of his presence in the ICU. He has undergone an ablation procedure, but had recurrence of his atrial arrhythmias. He was in no distress when I saw him. PAST MEDICAL HISTORY: Remarkable for hypothyroidism, knee replacement, back surgery, shoulder surgery, and throat cancer in the past. MEDICATIONS: He is on thyroid replacement. Prior to admission; 1. Zyrtec. 2. Metoprolol. 3. Omeprazole. 4. Testosterone. SOCIAL HISTORY: He does not smoke or drink. Never uses drugs. ALLERGIES: HE HAS CODEINE AND PENICILLIN ALLERGY. FAMILY HISTORY: Negative for lung disease in early age. REVIEW OF SYSTEMS: A 12-point review of systems completed, remarkable only for runny nose. PHYSICAL EXAMINATION: GENERAL: Mr. Gallego was admitted to the critical care unit after presenting with chest pain and shortness of breath. VITAL SIGNS: Blood pressure 133/75. He is afebrile. Heart rate is 94 and respiratory rate is 21. HEAD: Unremarkable. NECK: Unremarkable. LUNGS: Clear. HEART: Regular rhythm. S1 and S2 are normal. ABDOMEN: Soft and nontender. EXTREMITIES: Without clubbing, cyanosis, or edema. IMPRESSION AND PLAN: He was told he had bradycardia. He is tentatively on the schedule for a pacemaker. I will be happy to follow while he is in the ICU. He is clinically stable at this time. TIME SPENT: This is a 50-minute consult, with greater than 50% of the time was spent on the unit coordinating care. Job ID: [id number] MTDD
[2018-05-06] MEDS: Ipratropium Bromide 0.03% Nasal Inhaler 30 ml Bottle EA NARE SCH ×3 (22:18→22:29)
[2018-05-07] MEDS ORDERED: Metoprolol Tartrate 5 MG/5 ML VIAL IVP PRN (01:13)
[2018-05-07] MEDS: Guaifenesin DM 100-10/5 ML UDCUP PO PRN ×4 (01:24→20:59)
[2018-05-07] MEDS: HYDROcodone/Acetaminophen 5/325 mg Tablet PO PRN ×3 (01:25→20:59)
[2018-05-07 05:09] LABS: Hemoglobin 10.5 g/dL (14.0-18.0); Mean Corpuscular HGB CONC 33.1 g/dL (32.0-36.0); Mean Corpuscular Hemoglobin 31.3 pg (27.0-31.0); Mean Corpuscular Volume 94.8 fL (78.0-98.0); Mean Platelet Volume 7.2 fL (7.4-10.4); Platelet Count 360 thou/uL (130-400); RBC Distribution Width 12.2 % (11.5-14.5); Red Blood Cell (RBC) Count 3.36 mill/uL (4.70-6.10); White Blood Cell (WBC) Count 8.4 thou/uL (4.8-10.8)
[2018-05-07] MEDS: Levothyroxine Sodium 88 MCG TAB PO SCH (05:20)
[2018-05-07 05:25] LABS: Anion Gap 14 mmol/L (10-20); BUN (Urea Nitrogen) 9 mg/dL (8.4-25.7); Calc. Creatinine Clearance 178 mL/min (70-130); Calcium 8.6 mg/dL (7.8-10.44); Carbon Dioxide 26 mmol/L (23-31); Chloride 102 mmol/L (98-107); Estimated GFR-MDRD Greater than 90; Glucose 102 mg/dL (83-110); Potassium 3.3 mmol/L (3.5-5.1); Sodium 139 mmol/L (136-145)
[2018-05-07 05:36] LABS: Band 7 % (5-11); Eosinophils 1 % (0-10); Lymphocytes 18 % (21-51); MDiff Complete? YES; Monocytes 16 % (0-10); Myelocyte 1 % (0-0); Neutrophil 57 % (42-75)
[2018-05-07] MEDS ORDERED: Potassium Chloride 10 MEQ TAB PO SCH (08:00)
[2018-05-07] MEDS: Lisinopril 2.5 MG TAB PO SCH ×2 (08:50→20:54)
[2018-05-07] MEDS: Loratadine 10 MG TAB PO SCH (08:51)
[2018-05-07] MEDS: Senokot S 8.6-50 MG TAB PO SCH ×2 (08:51→20:54)
[2018-05-07] MEDS: Amiodarone 200 MG TAB PO SCH ×3 (08:51→20:54)
[2018-05-07] MEDS: Aspirin 325 mg Enteric Coated Tablet PO SCH (08:53)
[2018-05-07] MEDS ORDERED: Loratadine 10 MG TAB PO SCH (09:00)
[2018-05-07] MEDS ORDERED: Cetirizine HCl 10 MG TAB PO SCH (09:00)
[2018-05-07] MEDS: Potassium Chloride 20 MEQ/100 ML PREMIX BAG IVPB SCH ×2 (09:50→14:10)
[2018-05-07] MEDS ORDERED: Fentanyl 100 MCG/2 ML VIAL ONE (09:52)
[2018-05-07] MEDS ORDERED: Midazolam HCl 2 mg/2 ml Vial ONE (09:52)
[2018-05-07] MEDS ORDERED: Lidocaine 1% (PF) 30 ML VIAL ONE (09:52)
[2018-05-07] MEDS ORDERED: Levofloxacin 500 mg/D5W 100 ml Premix Bag ONE (10:44)
[2018-05-07] MEDS ORDERED: Clindamycin/D5W 600 mg/50 ml Premix Bag ONE (10:44)
[2018-05-07] MEDS ORDERED: HYDROcodone/Acetaminophen 5/325 mg Tablet PO PRN (12:45)
--- NOTE | 2018-05-07 12:49 | PDOC.PN ---
- Subjective Encounter Start Date: 05/07/18 Encounter Start Time: 09:45 Patient seen and examined for NSTEMI. No CP. No new complaints. No overnight events - Objective Resuscitation Status - Order Detail: 04/27/18 04:11 Resuscitation Status Routine Resuscitation Status: FULL: Full Resuscitation MAR Reviewed: Yes Vital Signs & Weight: Vital Signs (12 hours) Temp Pulse BP Pulse Ox 05/07/18 08:50 81 141/83 H 05/07/18 08:00 98 F 95 05/07/18 04:00 98.3 F Weight Weight 256 lb 13.416 oz Most Recent Monitor Data Heart Rate from ECG 83 NIBP 144/86 NIBP BP-Mean 105 Respiration from ECG 21 SpO2 95 I&O: 05/06/18 05/07/18 05/08/18 06:59 06:59 06:59 Intake Total 1890 570 50 Output Total 750 890 200 Balance 1140 -320 -150 Result Diagrams: 05/07/18 03:35 05/07/18 03:35 Additional Labs: Accuchecks 05/06/18 05/06/18 05/06/18 21:02 17:33 12:13 POC Glucose 129 H 112 H 87 EKG Reviewed by me: Yes (Tele ST) Phys Exam - Physical Examination Constitutional: NAD Respiratory: no wheezing, no rhonchi Cardiovascular: RRR, no rub Gastrointestinal: soft, non-tender, positive bowel sounds Musculoskeletal: no edema Neurological: moves all 4 limbs Dx/Plan (1) NSTEMI (non-ST elevated myocardial infarction) Code(s): I21.4 - NON-ST ELEVATION (NSTEMI) MYOCARDIAL INFARCTION Status: Acute (2) CAD (coronary artery disease) Code(s): I25.10 - ATHSCL HEART DISEASE OF [place] CORONARY ARTERY W/O ANG PCTRS Status: Acute Comment: s/p CABG this admission (3) Atrial flutter Code(s): I48.92 - UNSPECIFIED ATRIAL FLUTTER Status: Acute Comment: with long pauses s/p ablation (4) Obesity (BMI 30.0-34.9) Code(s): E66.9 - OBESITY, UNSPECIFIED Status: Chronic (5) Hypothyroidism Code(s): E03.9 - HYPOTHYROIDISM, UNSPECIFIED Status: Chronic (6) Other issues per previous notes - Plan DVT proph w/SCDs Cont Amiodarone loading per Cardiology -: ?Pacemaker today -: Cont ASA and other meds as below Review of Systems - Review of Systems Cardiovascular: negative: chest pain, palpitations, orthopnea, paroxysmal nocturnal dyspnea, edema, light headedness, other Gastrointestinal: negative: Nausea, Vomiting, Abdominal Pain, Diarrhea, Constipation, Melena, Hematochezia, Other - Medications/Allergies Allergies/Adverse Reactions: Allergies Allergy/AdvReac Type Severity Reaction Status Date / Time codeine Allergy Rash Verified 04/27/18 02:28 Penicillins Allergy Rash Verified 04/27/18 02:28 Medications: Current Medications Hydrocodone Bitart/Acetaminophen ([place] 5/325) 1 tab PO Q4H PRN PRN Reason: Moderate Pain (4-6) Last Admin: 05/06/18 14:51 Dose: 1 tab Hydrocodone Bitart/Acetaminophen ([place] 5/325) 2 tab PO Q4H PRN PRN Reason: Severe Pain (7-10) Last Admin: 05/07/18 01:25 Dose: 2 tab Al Hydroxide/Mg Hydroxide (Maalox) 30 ml PO Q4H PRN PRN Reason: Indigestion Albuterol/Ipratropium (Duoneb) 3 ml NEB [id number] PRN PRN Reason: SHORTNESS OF BREATH Amiodarone HCl (Cordarone) 400 mg PO TID [facility] Last Admin: 05/07/18 08:51 Dose: 400 mg Artificial Tears (Tears Naturale) 0 drop EA EYE PRN PRN PRN Reason: Dry Eyes Aspirin (Ecotrin) 325 mg PO DAILY [facility] Last Admin: 05/07/18 08:53 Dose: 325 mg Bisacodyl (Dulcolax) 10 mg PO Q12H PRN PRN Reason: Constipation Bisacodyl (Dulcolax) 10 mg [place] Q12H PRN PRN Reason: Constipation Dextrose/Water (Dextrose 50%) 25 gm SLOW IVP PRN PRN PRN Reason: Hypoglycemia Diphenhydramine HCl (Benadryl) 25 mg PO Q6H PRN PRN Reason: Itching & Insomnia or Gilles Juan Manuel Glucagon (Glucagon) 1 mg IM PRN PRN PRN Reason: Hypoglycemia Guaifenesin/Dextromethorphan (Robitussin Dm) 15 ml PO Q4H PRN PRN Reason: Cough Last Admin: 05/07/18 08:51 Dose: 15 ml Dextrose/Water (D5w) 1,000 mls @ 0 mls/hr IV .Q0M PRN PRN Reason: Hypoglycemia Insulin Human Regular (Humulin R) 0 units SC .MODERATE SLIDING SC PRN PRN Reason: Moderate Correctional Scale Ipratropium [place] (Atrovent 0.03%) 1 ml EA NARE BID [facility] Last Admin: 05/06/18 22:29 Dose: Not Given Levothyroxine Sodium (Synthroid) 88 mcg PO 0600 [facility] Last Admin: 05/07/18 05:20 Dose: 88 mcg Lisinopril (Zestril) 2.5 mg PO BID [facility] Last Admin: 05/07/18 08:50 Dose: 2.5 mg Loratadine (Claritin) 10 mg PO DAILY [facility] Last Admin: 05/07/18 08:51 Dose: 10 mg Mineral Oil (Fleet Mineral Oil) 133 ml [place] DAILYPRN PRN PRN Reason: Constipation Nitroglycerin (Nitrostat) 0.4 mg SL Q5MIN PRN PRN Reason: Chest Pain Ondansetron HCl (Zofran) 4 mg IVP Q6H PRN PRN Reason: Nausea/Vomiting Senna/Docusate Sodium (Senokot S) 1 tab PO BID [facility] Last Admin: 05/07/18 08:51 Dose: 1 tab Sodium Chloride (Flush - Normal Saline) 10 ml IVF Q12HR [facility] Last Admin: 05/07/18 08:53 Dose: 10 ml Zolpidem Tartrate (Ambien) 5 mg PO HSPRN PRN PRN Reason: Insomnia
[2018-05-07] MEDS ORDERED: Potassium Chloride 20 MEQ/100 ML PREMIX BAG IVPB SCH (13:15)
[2018-05-07] MEDS: Clindamycin 150 MG CAP PO SCH ×2 (14:03→20:54)
[2018-05-07] MEDS ORDERED: Diltiazem HCl 125 MG, Admixture Fee 1 EACH in Sodium Chloride 0.9% 100 ML IVPB SCH (15:00)
[2018-05-07] MEDS: Ipratropium Bromide 0.03% Nasal Inhaler 30 ml Bottle EA NARE SCH ×2 (16:57→20:55)
[2018-05-08] MEDS: Guaifenesin DM 100-10/5 ML UDCUP PO PRN ×2 (03:47→20:48)
[2018-05-08] MEDS: Levothyroxine Sodium 88 MCG TAB PO SCH (05:57)
[2018-05-08 06:29] LABS: #Eosinphils 0.2 thou/uL (0.0-0.7); #Lymphocytes 1.1 thou/uL (1.20-3.40); #Monocytes 1.3 thou/uL (0.11-0.59); #Neutrophils 6.1 thou/uL (1.40-6.50); %Eosinophils 1.8 % (0.0-10.0); %Monocytes 14.8 % (0.0-10.0); %Neutrophils 70.4 % (42.0-75.0); Hemoglobin 10.6 g/dL (14.0-18.0); Mean Corpuscular HGB CONC 33.1 g/dL (32.0-36.0); Mean Corpuscular Hemoglobin 31.3 pg (27.0-31.0); Mean Corpuscular Volume 94.7 fL (78.0-98.0); Mean Platelet Volume 6.7 fL (7.4-10.4); Platelet Count 406 thou/uL (130-400); RBC Distribution Width 12.2 % (11.5-14.5); Red Blood Cell (RBC) Count 3.37 mill/uL (4.70-6.10); White Blood Cell (WBC) Count 8.7 thou/uL (4.8-10.8)
[2018-05-08 06:48] LABS: Anion Gap 15 mmol/L (10-20); BUN (Urea Nitrogen) 7 mg/dL (8.4-25.7); Calc. Creatinine Clearance 165 mL/min (70-130); Calcium 8.6 mg/dL (7.8-10.44); Carbon Dioxide 26 mmol/L (23-31); Chloride 100 mmol/L (98-107); Estimated GFR-MDRD Greater than 90; Glucose 118 mg/dL (83-110); Potassium 3.8 mmol/L (3.5-5.1); Sodium 137 mmol/L (136-145)
--- NOTE | 2018-05-08 07:56 | RAD ---
AP CHEST: History: Status post cardiac pacemaker placement. Date: 05-08-18 Comparison: 05-04-18 FINDINGS: AP chest demonstrates sternotomy wires seen. There has been placement of a dual-lead intracardiac pac ing device. A right subclavian central line is in place. Mild pulmonary vascular congestion is seen. No evidence of effusions, pneumonia, or pneumothorax seen . IMPRESSION: Cardiomegaly and pulmonary vascular congestion. POS: [facility]
[2018-05-08] MEDS: Aspirin 325 mg Enteric Coated Tablet PO SCH (09:07)
[2018-05-08] MEDS: Clindamycin 150 MG CAP PO SCH ×3 (09:07→20:46)
[2018-05-08] MEDS: Amiodarone 200 MG TAB PO SCH ×3 (09:07→20:46)
[2018-05-08] MEDS: Loratadine 10 MG TAB PO SCH (09:08)
[2018-05-08] MEDS: Lisinopril 2.5 MG TAB PO SCH ×2 (09:08→20:46)
[2018-05-08] MEDS: Ipratropium Bromide 0.03% Nasal Inhaler 30 ml Bottle EA NARE SCH ×2 (09:08→20:46)
[2018-05-08] MEDS: Senokot S 8.6-50 MG TAB PO SCH ×2 (09:09→20:47)
[2018-05-08 14:16] VITALS: BMI 32.7
--- NOTE | 2018-05-08 14:23 | PRG ---
DATE OF SERVICE: 05/08/2018 SUBJECTIVE: Sang Gallego has no complaints. His pacemaker is in place. Chest radiograph shows no pneumothorax or no infiltrates. OBJECTIVE: VITAL SIGNS: He is afebrile. Heart rate 75, respiratory rate is 18 , oxymetry is 95% on room air, blood pressure 145/70. LUNGS: Clear. HEART: Regular rhythm. ABDOMEN: Soft. IMPRESSION: 1. Status post pacemaker. 2. Status post coronary artery bypass grafting recently x3 with ligation of atrial appendage. 3. Status post, I believe, flutter ablation. 4. Hypothyroidism, on replacement. 5. History of multiple orthopedic surgeries. 6. History of throat cancer in the past, clinically in remission. 7. Codeine and penicillin allergy. He is stable from my perspective. I will sign off. Job ID: [id number] MTDD
--- NOTE | 2018-05-08 15:51 | PDOC.CTH ---
Cardiology Progress Note - Subjective EP PROGRESS NOTE: 05/08/18 Seen as follow up for sinus node dysfunction as well as atrial arrhythmias s/p CTI ablation last week. Had AF over weekend but now back in sinus rhythm. Feeling stronger as he begins to ambulate more and recover from CABG last week. Had dual chamber PPM placed last week to correct pauses/jez. - Objective Vital Signs Temp Pulse Pulse Pulse Resp BP BP 05/08/18 15:05 98.6 F 75 18 05/08/18 13:30 82 81 154/71 H 05/08/18 11:12 98 F 75 18 05/08/18 09:11 92 91 160/80 H 05/08/18 09:08 78 144/65 H 05/08/18 07:28 97.5 F L 75 16 05/08/18 04:00 97.7 F 80 18 BP BP BP Pulse Ox Pulse Ox Pulse Ox 05/08/18 15:05 143/71 H 95 05/08/18 13:30 143/71 H 96 93 L 05/08/18 11:12 145/70 H 95 05/08/18 09:11 144/65 H 96 92 L 05/08/18 09:08 05/08/18 07:28 137/75 95 05/08/18 04:00 146/71 H 92 L Admit Weight 265 lb 9.6 oz Weight 261 lb 12.8 oz 05/07/18 05/08/18 05/09/18 06:59 06:59 06:59 Intake Total 570 550 Output Total 890 775 Balance -320 -225 - Physical Examination General/Neuro: alert & oriented x3, NAD Neck: carotid US brisk, no JVD present Lungs: CTA, unlabored respirations Heart: PMI normal, RRR Abdomen: NT/ND, soft Other PE findings: left chest wall incision CDI - Telemetry Telemetry Rhythm: SR - Labs Result Diagrams: 05/08/18 05:14 05/08/18 05:14 Troponin/CKMB CK-MB (CK-2) 4.2 ng/mL (0-6.6) 04/26/18 22:59 Troponin I 1.546 ng/mL (< 0.028) H* 04/27/18 05:25 - Assessment/Plan 1. CAD s/p CABG 2. Atrial fibrillation - loading on Amiodarone 400mg TID for suppression post CABG 3. Atrial flutter -s/p CTI ablation 4. Left atrial appendage ligation during bypass - recommend oral anticoagulation therapy until STEFANY is performed to assess if appendage is adequately closed. Continue amiodarone. Recommend starting OAC until STEFANY done to assess RICH closure with cardiology.
--- NOTE | 2018-05-08 17:18 | PDOC.PN ---
- Subjective Encounter Start Date: 05/08/18 Encounter Start Time: 08:30 Patient seen and examined for NSTEMI. s/p pacemaker. No new complaints. No overnight events - Objective Resuscitation Status - Order Detail: 04/27/18 04:11 Resuscitation Status Routine Resuscitation Status: FULL: Full Resuscitation MAR Reviewed: Yes Vital Signs & Weight: Vital Signs (12 hours) Temp Pulse Pulse Pulse Resp BP BP 05/08/18 15:05 98.6 F 75 18 05/08/18 13:30 82 81 154/71 H 05/08/18 11:12 98 F 75 18 05/08/18 09:11 92 91 160/80 H 05/08/18 09:08 78 144/65 H 05/08/18 07:28 97.5 F L 75 16 BP BP BP Pulse Ox Pulse Ox Pulse Ox 05/08/18 15:05 143/71 H 95 05/08/18 13:30 143/71 H 96 93 L 05/08/18 11:12 145/70 H 95 05/08/18 09:11 144/65 H 96 92 L 05/08/18 09:08 05/08/18 07:28 137/75 95 Weight Admit Weight 265 lb 9.6 oz Weight 261 lb 12.8 oz Most Recent Monitor Data Heart Rate from ECG 83 NIBP 144/86 NIBP BP-Mean 105 Respiration from ECG 21 SpO2 95 I&O: 05/07/18 05/08/18 05/09/18 06:59 06:59 06:59 Intake Total 570 550 Output Total 890 775 Balance -320 -225 Result Diagrams: 05/08/18 05:14 05/08/18 05:14 Additional Labs: Accuchecks 05/08/18 05/08/18 05/08/18 16:37 10:46 05:25 POC Glucose 148 H 132 H 139 H 05/07/18 20:10 POC Glucose 118 H EKG Reviewed by me: Yes (Tele SR) Phys Exam - Physical Examination Constitutional: NAD Respiratory: no wheezing, no rhonchi Cardiovascular: RRR, no rub Gastrointestinal: soft, non-tender, positive bowel sounds Musculoskeletal: no edema Neurological: moves all 4 limbs Dx/Plan (1) NSTEMI (non-ST elevated myocardial infarction) Code(s): I21.4 - NON-ST ELEVATION (NSTEMI) MYOCARDIAL INFARCTION Status: Acute (2) CAD (coronary artery disease) Code(s): I25.10 - ATHSCL HEART DISEASE OF [place] CORONARY ARTERY W/O ANG PCTRS Status: Acute Comment: s/p CABG this admission (3) Atrial flutter Code(s): I48.92 - UNSPECIFIED ATRIAL FLUTTER Status: Acute Comment: with long pauses s/p ablation (4) Obesity (BMI 30.0-34.9) Code(s): E66.9 - OBESITY, UNSPECIFIED Status: Chronic (5) Hypothyroidism Code(s): E03.9 - HYPOTHYROIDISM, UNSPECIFIED Status: Chronic (6) Other issues per previous notes - Plan cont current plan of care, plan discussed w/ family, out of bed/ambulate, DVT proph w/SCDs s/p pacemaker -: Cont Amiodarone loading, Cont ASA/ACEI -: On Cardizem drip -: Cont other meds as below Review of Systems - Review of Systems Respiratory: negative: Cough, Dry, Shortness of Breath, Hemoptysis, SOB with Excertion, Pleuritic Pain, Sputum, Wheezing Cardiovascular: negative: chest pain, palpitations, orthopnea, paroxysmal nocturnal dyspnea, edema, light headedness, other - Medications/Allergies Allergies/Adverse Reactions: Allergies Allergy/AdvReac Type Severity Reaction Status Date / Time codeine Allergy Rash Verified 04/27/18 02:28 Penicillins Allergy Rash Verified 04/27/18 02:28 Medications: Current Medications Hydrocodone Bitart/Acetaminophen ([place] 5/325) 1 tab PO Q4H PRN PRN Reason: Mild Pain Last Admin: 05/07/18 20:59 Dose: 1 tab Hydrocodone Bitart/Acetaminophen ([place] 5/325) 2 tab PO Q4H PRN PRN Reason: For Moderate Pain Last Admin: 05/08/18 03:46 Dose: 2 tab Al Hydroxide/Mg Hydroxide (Maalox) 30 ml PO Q4H PRN PRN Reason: Indigestion Albuterol/Ipratropium (Duoneb) 3 ml NEB [id number] PRN PRN Reason: SHORTNESS OF BREATH Amiodarone HCl (Cordarone) 400 mg PO TID [facility] Last Admin: 05/08/18 15:01 Dose: 400 mg Artificial Tears (Tears Naturale) 0 drop EA EYE PRN PRN PRN Reason: Dry Eyes Aspirin (Ecotrin) 325 mg PO DAILY [facility] Last Admin: 05/08/18 09:07 Dose: 325 mg Atorvastatin Calcium (Lipitor) 10 mg PO HS [facility] Bisacodyl (Dulcolax) 10 mg PO Q12H PRN PRN Reason: Constipation Bisacodyl (Dulcolax) 10 mg NM Q12H PRN PRN Reason: Constipation Clindamycin HCl (Cleocin) 300 mg PO TID [facility] Stop: 05/14/18 15:01 Last Admin: 05/08/18 15:02 Dose: 300 mg Dextrose/Water (Dextrose 50%) 25 gm SLOW IVP PRN PRN PRN Reason: Hypoglycemia Diphenhydramine HCl (Benadryl) 25 mg PO Q6H PRN PRN Reason: Itching & Insomnia or Gilles Juan Manuel Glucagon (Glucagon) 1 mg IM PRN PRN PRN Reason: Hypoglycemia Guaifenesin/Dextromethorphan (Robitussin Dm) 15 ml PO Q4H PRN PRN Reason: Cough Last Admin: 05/08/18 03:47 Dose: 15 ml Dextrose/Water (D5w) 1,000 mls @ 0 mls/hr IV .Q0M PRN PRN Reason: Hypoglycemia Insulin Human Regular (Humulin R) 0 units SC .MODERATE SLIDING SC PRN PRN Reason: Moderate Correctional Scale Ipratropium [place] (Atrovent 0.03%) 1 ml EA NARE BID [facility] Last Admin: 05/08/18 09:08 Dose: 1 ml Levothyroxine Sodium (Synthroid) 88 mcg PO 0600 [facility] Last Admin: 05/08/18 05:57 Dose: 88 mcg Lisinopril (Zestril) 2.5 mg PO BID [facility] Last Admin: 05/08/18 09:08 Dose: 2.5 mg Loratadine (Claritin) 10 mg PO DAILY [facility] Last Admin: 05/08/18 09:08 Dose: 10 mg Mineral Oil (Fleet Mineral Oil) 133 ml NM DAILYPRN PRN PRN Reason: Constipation Nitroglycerin (Nitrostat) 0.4 mg SL Q5MIN PRN PRN Reason: Chest Pain Ondansetron HCl (Zofran) 4 mg IVP Q6H PRN PRN Reason: Nausea/Vomiting Senna/Docusate Sodium (Senokot S) 1 tab PO BID [facility] Last Admin: 05/08/18 09:09 Dose: 1 tab Sodium Chloride (Flush - Normal Saline) 10 ml IVF Q12HR [facility] Last Admin: 05/08/18 09:09 Dose: 10 ml Sodium Chloride (Flush - Normal Saline) 10 ml IVF PRN PRN PRN Reason: Saline Flush Zolpidem Tartrate (Ambien) 5 mg PO HSPRN PRN PRN Reason: Insomnia
[2018-05-08] MEDS: HYDROcodone/Acetaminophen 5/325 mg Tablet PO PRN (20:47)
[2018-05-08] MEDS ORDERED: Atorvastatin Calcium 10 MG TAB PO SCH (21:00)
[2018-05-09] MEDS: Levothyroxine Sodium 88 MCG TAB PO SCH (05:53)
[2018-05-09 07:26] LABS: Hemoglobin 10.4 g/dL (14.0-18.0); Mean Corpuscular HGB CONC 33.3 g/dL (32.0-36.0); Mean Corpuscular Hemoglobin 31.6 pg (27.0-31.0); Mean Corpuscular Volume 94.9 fL (78.0-98.0); Mean Platelet Volume 6.2 fL (7.4-10.4); Platelet Count 437 thou/uL (130-400); RBC Distribution Width 12.3 % (11.5-14.5); Red Blood Cell (RBC) Count 3.29 mill/uL (4.70-6.10); White Blood Cell (WBC) Count 8.1 thou/uL (4.8-10.8)
[2018-05-09 07:42] LABS: Anion Gap 12 mmol/L (10-20); BUN (Urea Nitrogen) 8 mg/dL (8.4-25.7); Calc. Creatinine Clearance 165 mL/min (70-130); Calcium 8.6 mg/dL (7.8-10.44); Carbon Dioxide 29 mmol/L (23-31); Chloride 101 mmol/L (98-107); Estimated GFR-MDRD Greater than 90; Glucose 116 mg/dL (83-110); Potassium 3.6 mmol/L (3.5-5.1); Sodium 138 mmol/L (136-145)
[2018-05-09 07:57] LABS: Band 12 % (5-11); Eosinophils 3 % (0-10); Lymphocytes 14 % (21-51); MDiff Complete? YES; Monocytes 10 % (0-10); Myelocyte 1 % (0-0); Neutrophil 60 % (42-75); Platelet Morphology Comment Appears Increased; Polychromasia SLIGHT = 2-3 cells (100X) (0-2/hpf)
[2018-05-09] MEDS: Amiodarone 200 MG TAB PO SCH ×2 (08:02→16:37)
[2018-05-09] MEDS: Clindamycin 150 MG CAP PO SCH ×2 (08:02→16:37)
[2018-05-09] MEDS: Aspirin 325 mg Enteric Coated Tablet PO SCH (08:02)
[2018-05-09] MEDS: Loratadine 10 MG TAB PO SCH (08:03)
[2018-05-09] MEDS: Ipratropium Bromide 0.03% Nasal Inhaler 30 ml Bottle EA NARE SCH (08:03)
[2018-05-09] MEDS: Senokot S 8.6-50 MG TAB PO SCH (08:03)
[2018-05-09] MEDS: Lisinopril 2.5 MG TAB PO SCH (08:03)
--- NOTE | 2018-05-09 09:54 | PDOC.CTH ---
Cardiology Progress Note - Subjective EP PROGRESS NOTE: 05/09/18 Seen as follow up for sinus node dysfunction as well as atrial arrhythmias s/p CTI ablation last week. Had AF over weekend but now back in sinus rhythm. Brief flutter/fib episode overnight. Feeling stronger as he begins to ambulate more and recover from CABG last week. Had dual chamber PPM placed last week to correct pauses/jez. No new cardiac concerns or complaints today. Feels well. Possible DC today. - Objective Vital Signs Temp Pulse Resp BP BP Pulse Ox 05/09/18 07:05 97.8 F 70 16 124/69 93 L 05/09/18 02:48 97.7 F 74 14 146/69 H 95 Admit Weight 265 lb 9.6 oz Weight 261 lb 12.8 oz 05/08/18 05/09/18 05/10/18 06:59 06:59 06:59 Intake Total 550 1920 Output Total 775 1125 Balance -225 795 - Physical Examination General/Neuro: alert & oriented x3, NAD Neck: carotid US brisk, no JVD present Lungs: unlabored respirations Heart: PMI normal, RRR Abdomen: NT/ND, soft - Telemetry Telemetry Rhythm: SR - Labs Result Diagrams: 05/09/18 06:57 05/09/18 06:57 Troponin/CKMB CK-MB (CK-2) 4.2 ng/mL (0-6.6) 04/26/18 22:59 Troponin I 1.546 ng/mL (< 0.028) H* 04/27/18 05:25 - Assessment/Plan 1. CAD s/p CABG 2. Atrial fibrillation - loading on Amiodarone 400mg TID for suppression post CABG -started on ELiquis emg PO BID this AM. 3. Atrial flutter -s/p CTI ablation 4. Left atrial appendage ligation during bypass - recommend oral anticoagulation therapy until STEFAYN is performed to assess if appendage is adequately closed. Continue amiodarone. Recommend starting OAC until STEFANY done to assess RICH closure with cardiology. OK for DC by EP. Wound check in 1-2 weeks. Follow up to be scheduled for 3 months. Continue eliquis upon DC. Can stop by clinic for 30 day supply card and samples upon DC if patient desires. Amiodarone taper instructions upon discharge: 400mg BID x 1 week 200mg BID x 2 weeks 200mg Daily x 3 months (total 146 Pills)
[2018-05-09] MEDS ORDERED: Apixaban 5 MG TAB PO SCH ×3 (10:10→21:00)
[2018-05-09 16:37] VITALS: BP 151/72; TEMP 98.1
--- NOTE | 2018-05-09 20:12 | DIS ---
DATE OF ADMISSION: 04/27/2018 DATE OF DISCHARGE: 05/09/2018 DISCHARGE DISPOSITION: Home. FOLLOWUP VISITS: 1. Follow up with primary care physician, Dr. Butch Rucker, next week. 2. Follow up with Cardiology Dr. Park, next month. 3. Follow up with cardiothoracic Dr. Mills on 05/22/2018. 4. Follow up with Electrophysiology, Dr. Hutchinson after 2 weeks. ALLERGIES: THE PATIENT IS ALLERGIC TO CODEINE AND PENICILLIN. THE PATIENT WAS SEEN ON THE DAY OF DISCHARGE. DENIES ANY NEW COMPLAINTS. NO CHEST PAIN, SHORTNESS OF BREATH, OR PALPITATIONS REPORTED. DISCHARGE MEDICATIONS: 1. Amiodarone 400 mg twice daily for 1 week, then 200 mg twice daily for two weeks, then 200 mg daily for three months per electrophysiology. 2. Eliquis 5 mg b.i.d. 3. Aspirin 81 mg daily. 4. Lipitor 10 mg nightly. 5. Clindamycin 300 mg t.i.d. for next 5 days. 6. [place] as needed. 7. Lisinopril 2.5 mg b.i.d. 8. Cetirizine 10 mg daily. 9. Levothyroxine 88 mcg daily. 10. Omeprazole 20 mg daily. 11. Testosterone gel as directed. BRIEF HOSPITAL COURSE: The patient is a 72-year-old male with hypertension, presented to the emergency room with chest discomfort. Please refer to the history and physical, dated 04/27/2018 for further details. The patient was admitted to the hospital with a diagnosis of chest discomfort consistent with non ST-elevation [place]. His maximum troponin was 1.5. He was evaluated by Cardiology and underwent cardiac catheterization that showed 3-vessel disease. He underwent coronary artery bypass grafting on 05/01/2018. He also required pacemaker placement as well as atrial flutter ablation during this hospital stay. He has been started on amiodarone. Echocardiogram showed ejection fraction 50% to 55% with diastolic dysfunction. He has been cleared by Cardiology for discharge. Anticoagulation has been initiated. FINAL DIAGNOSES: 1. Non-ST elevation myocardial infarction, status post ablation. 2. Atrial flutter, requiring ablation. He also had atrial flutter on presentation. 3. Atrial fibrillation, started on amiodarone as well as anticoagulation. He also had left atrial appendage ligation during the bypass. 4. Obesity with a BMI of 32.7. 5. Hyperlipidemia. His LDL was 135 with cholesterol 198, triglyceride 137. Primary care physician was advised to titrate statin dose. 6. Hypertension. 7. Hypothyroidism. 8. Coronary artery disease, status post coronary artery bypass graft this admission. 9. Seasonal allergies. 10. History of throat cancer in the past. 11. Degenerative joint disease. 12. Codeine and penicillin allergy. 13. Gastroesophageal reflux disease. 14. Testosterone deficiency. PLAN: Plan of care was discussed with the patient in detail. He stated understanding. Job ID: [id number]
[2018-05-10] MEDS ORDERED: Aspirin 81 mg Enteric Coated Tablet PO SCH (09:00)
== END 2018-05-09 17:03 | disposition home or self-care (01) | DRG 234 ==
LOC: ERS 22:04 → 2SW 04-27 01:49 → OBSVTOIN 04-27 01:49 → CCU 05-01 06:47 → 2NO 05-02 16:49 → CCU 05-04 18:25 → 2NO 05-07 10:55
PROVIDERS: ADMIT Internal Medicine; ATTEND Internal Medicine
PROC: 4A023N7 Measurement of Cardiac Sampling and Pressure, Left Heart, Percutaneous Approach (ICD-10-PCS; 2018-04-30)
PROC: B2111ZZ Fluoroscopy of Multiple Coronary Arteries using Low Osmolar Contrast (ICD-10-PCS; 2018-04-30)
PROC: B2151ZZ Fluoroscopy of Left Heart using Low Osmolar Contrast (ICD-10-PCS; 2018-04-30)
PROC: 02100Z9 Bypass Coronary Artery, One Artery from Left Internal Mammary, Open Approach (ICD-10-PCS; 2018-05-01)
PROC: 021109W Bypass Coronary Artery, Two Arteries from Aorta with Autologous Venous Tissue, Open Approach (ICD-10-PCS; 2018-05-01)
PROC: 06BQ4ZZ Excision of Left Saphenous Vein, Percutaneous Endoscopic Approach (ICD-10-PCS; 2018-05-01)
PROC: 5A1221Z Performance of Cardiac Output, Continuous (ICD-10-PCS; 2018-05-01)
PROC: 02L70ZK Occlusion of Left Atrial Appendage, Open Approach (ICD-10-PCS; 2018-05-01)
PROC: 4A023FZ Measurement of Cardiac Rhythm, Percutaneous Approach (ICD-10-PCS; principal; 2018-05-04)
PROC: 02583ZZ Destruction of Conduction Mechanism, Percutaneous Approach (ICD-10-PCS; 2018-05-04)
PROC: 4A0234Z Measurement of Cardiac Electrical Activity, Percutaneous Approach (ICD-10-PCS; 2018-05-04)
PROC: 02K83ZZ Map Conduction Mechanism, Percutaneous Approach (ICD-10-PCS; 2018-05-04)
PROC: 0JH606Z Insertion of Pacemaker, Dual Chamber into Chest Subcutaneous Tissue and Fascia, Open Approach (ICD-10-PCS; 2018-05-07)
PROC: 02H63JZ Insertion of Pacemaker Lead into Right Atrium, Percutaneous Approach (ICD-10-PCS; 2018-05-07)
PROC: 02HK3JZ Insertion of Pacemaker Lead into Right Ventricle, Percutaneous Approach (ICD-10-PCS; 2018-05-07)
DX: I21.4 Non-ST elevation (NSTEMI) myocardial infarction (principal); I48.3 Typical atrial flutter; I25.10 Atherosclerotic heart disease of native coronary artery without angina pectoris; E66.9 Obesity, unspecified; Z68.32 Body mass index [BMI] 32.0-32.9, adult; I49.5 Sick sinus syndrome; E03.9 Hypothyroidism, unspecified; I48.0 Paroxysmal atrial fibrillation; E78.5 Hyperlipidemia, unspecified; I10 Essential (primary) hypertension; M19.90 Unspecified osteoarthritis, unspecified site; K59.00 Constipation, unspecified; Z88.5 Allergy status to narcotic agent; Z88.0 Allergy status to penicillin; Z85.89 Personal history of malignant neoplasm of other organs and systems; Z87.891 Personal history of nicotine dependence; Z96.651 Presence of right artificial knee joint
CPT/HCPCS: 33208; 36005; 36415; 36416; 36430; 71045; 75820; 76942; 80048; 80053; 80061; 82553; 82565; 82805; 83690; 83735; 83880; 84443; 84484; 85025; 85347; 85610; 85730; 86850; 86900; 86901; 92960; 93005; 93010; 93306; 93458; 93613; 93621; 93653; 93798; 94002; 94150; 94760; 96372; 99152; 99153; C1730; C1769; C1785; C1898; J0282; J1265; J1642; J1644; J1650; J1815; J1885; J1940; J1956; J2001; J2150; J2250; J2440; J2704; J2720; J3010; J3370; J3475; J3480; J3490; J7050; P9045; S0017; S0028

== ENCOUNTER 2018-05-12 17:49 | Inpatient (IN) | payer MEDICARE, BC ==
[2018-05-12 18:44] LABS: #Eosinphils 0.1 thou/uL (0.0-0.7); #Lymphocytes 1.5 thou/uL (1.20-3.40); #Neutrophils 13.9 thou/uL (1.40-6.50); %Basophils 0.1 % (0.0-1.0); %Eosinophils 0.5 % (0.0-10.0); %Lymphocytes 9.2 % (21.0-51.0); %Monocytes 5.8 % (0.0-10.0); %Neutrophils 84.5 % (42.0-75.0); Mean Corpuscular HGB CONC 33.1 g/dL (32.0-36.0); Mean Corpuscular Hemoglobin 31.2 pg (27.0-31.0); Mean Corpuscular Volume 94.4 fL (78.0-98.0); Mean Platelet Volume 6.5 fL (7.4-10.4); Platelet Count 584 thou/uL (130-400); RBC Distribution Width 12.8 % (11.5-14.5); Red Blood Cell (RBC) Count 2.56 mill/uL (4.70-6.10); White Blood Cell (WBC) Count 16.5 thou/uL (4.8-10.8)
[2018-05-12 19:00] LABS: ALT (SGPT) 80 U/L (8-55); AST (SGOT) 79 U/L (5-34); Albumin 3.2 g/dL (3.4-4.8); Alkaline Phosphatase 48 U/L (40-150); Anion Gap 17 mmol/L (10-20); BUN (Urea Nitrogen) 26 mg/dL (8.4-25.7); Bilirubin, Total 0.4 mg/dL (0.2-1.2); Calc. Creatinine Clearance 0 mL/min (70-130); Calcium 8.6 mg/dL (7.8-10.44); Carbon Dioxide 20 mmol/L (23-31); Chloride 105 mmol/L (98-107); Estimated GFR-MDRD Greater than 90; Globulin 3.5 g/dL (2.4-3.5); Glucose 118 mg/dL (83-110); Potassium 4.5 mmol/L (3.5-5.1); Protein, Total 6.7 g/dL (5.8-8.1); Sodium 137 mmol/L (136-145)
[2018-05-12 19:08] LABS: Bilirubin Negative (Negative); Blood, Urine Negative (Negative); Clarity CLEAR (Clear); Glucose, Urine (Dipstick) Negative (Negative); Leukocyte Trace (Negative); Nitrite Negative (Negative); Protein, Urine (Dipstick) Negative (Neg-Trace); Specific Gravity, Urine 1.026 (1.002-1.036)
[2018-05-12 19:10] LABS: Bacteria/HPF None Seen HPF (None Seen); Hyaline Casts/LPF 0-3 HYALINE CAST LPF (0-3 Hyaline); Pathc Cast-AUWi Flag 0.29 (0-2.49); Squamous Epithelial 0-3 HPF (0-3)
[2018-05-12 19:18] LABS: RBC/HPF 0-3 HPF (0-3)
[2018-05-12 19:27] LABS: CKMB 1.4 ng/mL (0-6.6)
[2018-05-12] MEDS ORDERED: Pantoprazole 80 MG, Admixture Fee 1 EACH in Sodium Chloride 0.9% 100 ML IVP SCH (20:15)
[2018-05-13 00:12] LABS: Troponin I 0.221 ng/mL (< 0.028)
[2018-05-13 03:09] LABS: Hemoglobin 8.2 g/dL (14.0-18.0); Platelet Count 380 thou/uL (130-400)
[2018-05-13] MEDS ORDERED: Senokot S 8.6-50 MG TAB PO PRN (04:08)
[2018-05-13] MEDS ORDERED: Nitroglycerin 0.4 MG TAB (25 Tab Bottle) PO PRN (04:08)
[2018-05-13] MEDS ORDERED: Acetaminophen 325 MG TAB PO PRN (04:08)
[2018-05-13] MEDS ORDERED: Calcium Carbonate 500 MG ChewTAB PO PRN (04:08)
[2018-05-13] MEDS ORDERED: Labetalol HCl 100 MG/20 ML VIAL SLOW IVP PRN (04:14)
[2018-05-13] MEDS ORDERED: HYDROcodone/Acetaminophen 5/325 mg Tablet PO PRN (04:15)
--- NOTE | 2018-05-13 04:48 | HP ---
CHIEF COMPLAINT: Rectal bleeding. HISTORY OF PRESENT ILLNESS: The patient is a 72-year-old male with paroxysmal atrial fibrillation, on anticoagulation with recent coronary artery bypass grafting, presented to the emergency room with above complaints. The patient was discharged from this facility 3 days ago. Over the last 2 days, the patient noticed some darkening of his stool. Earlier today, he had hematochezia. He noted streaks of fresh blood in the stool. He also felt lightheaded and dizzy. He had a total of 2 or 3 episodes of hematochezia. He then presented to the emergency room. He denies any chest pain, shortness of breath, palpitations, or syncope. No similar episodes in the past. His last dose of Eliquis was this morning. He also takes 81 mg aspirin every day. He is currently on omeprazole. In the emergency room, his initial vital signs showed temperature 97.6, respirations 18, pulse was 88 with a blood pressure of 130/64 with O2 saturation 98% on room air. EKG showed sinus rhythm without significant ST-T wave changes. He continued to have hematochezia in the emergency room with persistent lightheadedness. Two units of PRBC was ordered. PAST MEDICAL HISTORY: 1. Coronary artery disease, status post recent CABG. 2. Paroxysmal atrial fibrillation, on anticoagulation as well as amiodarone. 3. Atrial flutter, status post ablation last week. 4. Sick sinus syndrome, status post pacemaker. 5. Recent non ST elevation [place]. 6. Hypertension. 7. Hyperlipidemia. 8. Obesity with a BMI of 32.7. 9. Seasonal allergies. 10. History of throat cancer in the past. 11. Degenerative joint disease. 12. Codeine and penicillin allergy. 13. GERD. 14. Testosterone deficiency. PAST SURGICAL HISTORY: 1. Coronary artery bypass grafting. 2. Ablation for atrial flutter. 3. Pacemaker placement. 4. Back surgery. 5. Right shoulder surgery. 6. Right knee replacement. ALLERGIES: THE PATIENT IS ALLERGIC TO CODEINE AND PENICILLIN. CURRENT HOME MEDICATIONS: 1. Levothyroxine 88 mcg daily. 2. Omeprazole 20 mg daily. 3. Testosterone gel daily. 4. Amiodarone taper. 5. Eliquis 5 mg b.i.d. 6. Aspirin 81 mg daily. 7. Lipitor 10 mg at bedtime. 8. Clindamycin 300 mg t.i.d. 9. [place] as needed. 10. Lisinopril 2.5 mg b.i.d. SOCIAL HISTORY: The patient is a former smoker, quit smoking more than 10 years ago. Denies any alcohol or drug use. FAMILY HISTORY: Negative for heart disease. REVIEW OF SYSTEMS: All other review of systems were reviewed and were found negative. PHYSICAL EXAMINATION: VITAL SIGNS: As discussed above. GENERAL: A 72-year-old male with lightheadedness, currently receiving first unit of PRBC. HEENT: Head atraumatic, normocephalic. Sclerae are anicteric. Pale mucous membranes. No oral lesions. NECK: Supple. No JVD. No carotid bruit. LUNGS: Clear to auscultation bilaterally. No wheezing, rales, or rhonchi. HEART: S1 and S2 present. Regular rate and rhythm. No murmurs, rubs, or gallops appreciated. ABDOMEN: Soft, nontender. Bowel sounds present. No rebound or guarding. EXTREMITIES: No edema or calf tenderness. NEUROLOGIC: Grossly nonfocal. Moves all 4 extremities. PSYCHIATRIC: Alert, awake and oriented x3. SKIN: Warm and dry. LYMPH NODES: No palpable lymph nodes in the neck. PERIPHERAL VASCULAR: Radial pulses palpable bilaterally. MUSCULOSKELETAL: No joint swelling, or tenderness. LABORATORY FINDINGS: WBC 16.5 with hemoglobin 8, hematocrit 24.1, platelet 584. Troponin 0.208 with normal CK-MB. BUN 26, bicarbonate 20, sodium 137, potassium 4.5. Urinalysis was negative for bacteria. Recent chest x-ray by my review was negative for infiltrate. EKG by my review showed sinus rhythm. IMPRESSION: 1. Upper gastrointestinal bleeding. 2. Acute blood loss anemia. 3. Lightheadedness secondary to gastrointestinal bleeding. 4. Coronary artery disease with recent [id number] [place], requiring coronary artery bypass grafting. 5. Atrial flutter, status post ablation. 6. Paroxysmal atrial fibrillation, on amiodarone and anticoagulation. 7. Obesity with a BMI of 32.7. 8. Hyperlipidemia. 9. Hypertension. 10. Hypothyroidism. 11. Seasonal allergies. 12. Degenerative joint disease. 13. Gastroesophageal reflux disease. PLAN: 1. The patient will be monitored in the intermediate care unit. 2. The patient will receive total of 2 units of PRBC. 3. We will check hemoglobin every 4 to 6 hours. 4. GI consult. 5. N.p.o. except for ice chips. 6. We will check iron profile. 7. We will check orthostatic vitals every morning. 8. We will resume all other medications except for aspirin and Eliquis. The patient understands the risks of holding anticoagulation. We will continue Protonix drip. 9. Plan was discussed with the patient in detail. He stated understanding. Job ID: [id number]
[2018-05-13 05:10] LABS: Anion Gap 16 mmol/L (10-20); BUN (Urea Nitrogen) 28 mg/dL (8.4-25.7); Calc. Creatinine Clearance 0 mL/min (70-130); Carbon Dioxide 19 mmol/L (23-31); Chloride 107 mmol/L (98-107); Estimated GFR-MDRD Greater than 90; Glucose 116 mg/dL (83-110); Potassium 4.3 mmol/L (3.5-5.1); Sodium 138 mmol/L (136-145)
[2018-05-13 07:47] LABS: Hemoglobin 8.1 g/dL (14.0-18.0); Platelet Count 434 thou/uL (130-400)
[2018-05-13] MEDS: Sodium Chloride 0.9% 1,000 ML IV SCH ×2 (07:56→16:21)
[2018-05-13] MEDS: Pantoprazole 80 MG in Sodium Chloride 0.9% 100 ML IVP SCH (08:06)
[2018-05-13 08:07] LABS: Iron 82 ug/dL (65-175); Iron Binding Capacity, Total 221 mcg/dL (261-462)
[2018-05-13] MEDS ORDERED: Cetirizine HCl 10 MG TAB PO SCH (09:00)
--- NOTE | 2018-05-13 09:35 | CON ---
DATE OF CONSULTATION: 05/13/2018 GI INPATIENT CONSULTATION NOTE REASON FOR CONSULTATION: GI bleeding. HISTORY OF PRESENT ILLNESS: Sang Gallego is a 72-year-old man, who was recently hospitalized here for over a week earlier this month with myocardial infarction. He underwent coronary artery bypass grafting. He also underwent a pacemaker placement. He was just discharged from the hospital 4 days ago on Eliquis. Note that during his recent hospitalization, baseline hemoglobin was basically in the 10 to 11 range. He says that for the past couple of days, fairly soon after arriving back home, his bowel movements changed to very dark in color. This became more and more frequent. He started to feel weak, that prompted his presentation back here. He states that chronically, he has a tendency to upset stomach. He took a lot of NSAIDs in the past, but none recently. He does take omeprazole 20 mg daily for chronic indigestion symptoms. He has not had an upper endoscopy, at least nothing recently that he can recall. He has seen my colleague, Dr. Kurtis Darnell, in the past for colonoscopy. His last colonoscopy was in 2011. He had left-sided diverticulosis and 3 hyperplastic polyps removed with a 5-year followup recommended due to a prior history of polyps. Since arrival, Mr. Gallego was found to have a hemoglobin of 8.2. He has been hemodynamically stable. He received 2 units of RBCs, and recheck hemoglobin is 8.1. He has continued to have melenic stools including 1 witnessed by me. No nausea or vomiting. REVIEW OF SYSTEMS: Full review of systems including constitutional, head, eyes, ears, nose, throat, GI, , cardiovascular, respiratory, musculoskeletal, and neurologic systems are negative except as noted in the HPI. PAST MEDICAL HISTORY: Coronary artery disease status post recent CABG, paroxysmal atrial fibrillation on anticoagulation, atrial flutter status post ablation last week, sick sinus syndrome status post pacemaker, recent non-ST elevation [place], hypertension, hyperlipidemia, obesity, seasonal allergies, history of throat cancer, degenerative joint disease, GERD, testosterone deficiency, right shoulder surgery, back surgery, and right knee replacement. ALLERGIES: CODEINE AND PENICILLIN. HOME MEDICATIONS: 1. Levothyroxine. 2. Omeprazole 20 mg daily. 3. Testosterone gel. 4. Amiodarone taper. 5. Eliquis 5 mg b.i.d. 6. Aspirin 81 mg daily. 7. Lipitor 10 mg at bedtime. 8. Clindamycin 300 mg t.i.d. 9. [place] p.r.n. 10. Lisinopril 2.5 mg b.i.d. SOCIAL HISTORY: He is a former smoker, but quit smoking more than 10 years ago. No alcohol or drug use. FAMILY HISTORY: Noncontributory. PHYSICAL EXAMINATION: VITAL SIGNS: Temperature 97.6, blood pressure 104/68, pulse 88, and 98% oxygen saturation on room air. GENERAL: Pale 72-year-old gentleman, sitting up in the chair comfortably, in no acute distress. SKIN: He is pale. No jaundice. No rashes were visible or palpable. EYES: No scleral icterus. Extraocular moves intact. ENT: Mucous membranes moist. No oral lesions. LYMPH: No submandibular or supraclavicular lymphadenopathy. THYROID: Nontender to palpation. HEART: Regular rate and rhythm. LUNGS: Clear to auscultation bilaterally. ABDOMEN: Bowel sounds present. Soft and nontender to palpation. EXTREMITIES: No peripheral edema. NEUROLOGIC: Cranial nerves 2 through 12 intact bilaterally. No focal deficits. LABORATORY STUDIES: Hemoglobin initially 8.0 after 2 units RBC transfusion hemoglobin is 8.1, WBC 16.5, and platelets 434. BUN is elevated to 28 out of proportion to creatinine only 0.68. Troponin 0.224, stable. CK-MB normal at 1.0. Total bilirubin 0.4, alkaline phosphatase 48, AST 79, ALT 80, and albumin 3.2. Urinalysis shows 4 to 6 wbc's and positive for nitrates. ASSESSMENT AND PLAN: 1. Melena. 2. Acute blood loss anemia. 3. Atrial fibrillation, on anticoagulation with Eliquis. The patient is currently hemodynamically stable on Protonix drip, getting adequate resuscitation. Notably, his hemoglobin did not increase with 2 units RBC transfusion and he is continuing to have melena. I do suspect upper gastrointestinal blood loss. His Eliquis has been held since yesterday morning. We will proceed with upper endoscopy later this morning. If the upper endoscopy is unrevealing, we may have to consider bowel preparation this evening and colonoscopy the following day. The patient understands and agrees with the plan. Further recommendations following the upper endoscopy. Job ID: [id number]
[2018-05-13] MEDS ORDERED: Promethazine HCl 25 MG/ML VIAL IM PRN (10:33)
[2018-05-13] MEDS ORDERED: Promethazine HCl 25 MG/ML VIAL SLOW IVP PRN (10:33)
[2018-05-13] MEDS ORDERED: Ondansetron HCl/PF 4 MG/2 ML Vial IVP PRN (10:33)
[2018-05-13] MEDS ORDERED: PROPOFOL 200 MG/20 ML VIAL ONE (11:15)
[2018-05-13] MEDS ORDERED: Lidocaine 1% PF 5 ML VIAL ONE (11:15)
--- NOTE | 2018-05-13 12:07 | OP ---
DATE OF PROCEDURE: 05/13/2018 SIGNAL TESTER SURGEON: None. PROCEDURE PERFORMED: Esophagogastroduodenoscopy with control of hemorrhage. INDICATIONS: 1. Melena. 2. Acute blood loss anemia. MEDICATIONS: See Anesthesia record. FINDINGS: After discussion of the risks, benefits, alternatives of the procedure, informed consent was obtained and witnessed. Pre-endoscopic cardiopulmonary examination was satisfactory. Time-out was performed before sedation was achieved. Sedation was achieved with Anesthesia assistance in the endoscopy unit. A Pentax adult therapeutic upper endoscope was placed into the oropharynx and passed through the cricopharyngeus under direct visualization. The esophageal mucosa appeared normal throughout with a normal-appearing Z-line at 44 cm from the incisors. There was no evidence of any esophageal varices. The endoscope was advanced into the stomach. Forward and retroflexed views of the entire gastric mucosa were obtained. There was no evidence of any old blood or active bleeding in the stomach. There were no gastric varices. There is some mild patchy erythema throughout the gastric antrum and body, but no erosions or ulcerations in the stomach. The endoscope was advanced through the pylorus and into the duodenal bulb and first, second, and third portions of the duodenum. In the duodenal bulb near the apex superiorly, there is a large clean based ulceration. There was no high-risk stigmata of bleeding from this ulcer, which does measure greater than a centimeter in diameter. The endoscope was passed beyond the duodenal sweep. There is a smaller clean based ulcer in the second portion of the duodenum beyond the ampulla. In the third portion of the duodenum, there is another ulceration, which is actually smaller, but has a visible vessel with some adherent clot. This was thought to be the likely site of his recent acute hemorrhage. The adherent clot was removed exposing the visible vessel underneath. It was not spontaneously bleeding at the time of the exam. I treated the visible vessel with a 10-Armenian bipolar cautery probe. There was some mild bleeding induced during cauterization, but this quickly resolved with continued cautery. In the end, we had a good result with good hemostasis. At this point, the upper endoscope was completely withdrawn and the patient allowed to recover. The patient tolerated the procedure well. There were no immediate postprocedure complications. IMPRESSION: 1. Three duodenal ulcers (2 clean based, 1 in the third portion duodenum with visible vessel). 2. Visible vessel in the third portion of the duodenum, cauterized with 10-Armenian bipolar probe, with good hemostasis achieved. 3. Mild gastritis. 4. No old blood or active bleeding. 5. Otherwise normal esophagogastroduodenoscopy. RECOMMENDATION: 1. I would keep him on a Protonix drip for 48 to 72 hours. 2. Clear liquid diet today. If no evidence of recurrent overt bleeding tomorrow, diet can be advanced further. 3. I would recommend holding the Eliquis if possible from a cardiac perspective, for at least 3 days. 4. Observe closely, trend H and H. 5. We will check a Helicobacter pylori serology with tomorrow morning's labs. If Helicobacter pylori is positive, treat with triple therapy and confirm eradication. GI will continue to follow along. Please call anytime with questions or concerns. Job ID: [id number]
[2018-05-13] MEDS: Amiodarone 200 MG TAB PO SCH ×2 (12:50→21:03)
[2018-05-13] MEDS: Levothyroxine Sodium 88 MCG TAB PO SCH (12:50)
[2018-05-13] MEDS: Clindamycin 150 MG CAP PO SCH ×3 (12:52→21:03)
[2018-05-13] MEDS: Loratadine 10 MG TAB PO SCH (12:52)
[2018-05-13] MEDS: Saccharomyces boulardii 250 MG CAP PO SCH (12:53)
[2018-05-13 13:43] LABS: Hemoglobin 7.7 g/dL (14.0-18.0); Platelet Count 474 thou/uL (130-400)
[2018-05-13 15:29] LABS: Hemoglobin 8.4 g/dL (14.0-18.0); Platelet Count 523 thou/uL (130-400)
[2018-05-13 18:37] VITALS: BMI 30.2
[2018-05-13 19:26] LABS: Hemoglobin 7.2 g/dL (14.0-18.0); Platelet Count 441 thou/uL (130-400)
[2018-05-13] MEDS: Atorvastatin Calcium 10 MG TAB PO SCH (21:03)
--- NOTE | 2018-05-13 22:19 | PDOC.PN ---
- Subjective Encounter Start Date: 05/13/18 Encounter Start Time: 09:45 Patient seen and examined in daystay. On Protonix drip. Melena +. No N/V or abd pain. No overnight events - Objective Resuscitation Status - Order Detail: 05/13/18 04:08 Resuscitation Status Routine Resuscitation Status: FULL: Full Resuscitation MAR Reviewed: Yes Vital Signs & Weight: Vital Signs (12 hours) Temp Pulse Resp BP BP BP Pulse Ox 05/13/18 19:56 99 05/13/18 19:48 98.6 F 127 H 20 109/72 97 05/13/18 17:10 97.7 F 72 16 121/74 92 L 05/13/18 16:00 98 F 76 18 128/65 97 05/13/18 14:00 75 21 H 118/62 98 05/13/18 13:00 87 22 H 141/97 H 98 05/13/18 12:35 84 19 102/72 100 05/13/18 12:25 82 19 129/72 100 05/13/18 12:10 98 F 82 20 143/63 H 100 Weight Weight 247 lb 12.8 oz I&O: 05/12/18 05/13/18 05/14/18 06:59 06:59 06:59 Intake Total 240 Balance 240 Result Diagrams: 05/14/18 03:11 05/14/18 03:11 Additional Labs: Accuchecks 05/13/18 21:08 POC Glucose 114 H EKG Reviewed by me: Yes (Tele ST) Phys Exam - Physical Examination Constitutional: NAD Respiratory: no wheezing, no rhonchi Cardiovascular: RRR, no rub Gastrointestinal: soft, non-tender, positive bowel sounds Musculoskeletal: no edema Neurological: moves all 4 limbs Dx/Plan - Plan IMPRESSION: 1. Upper gastrointestinal bleeding. 2. Acute blood loss anemia. 3. Lightheadedness secondary to gastrointestinal bleeding. 4. Coronary artery disease with recent [id number] DC, requiring coronary artery bypass grafting. 5. Atrial flutter, status post ablation. 6. Paroxysmal atrial fibrillation, on amiodarone. 7. Obesity with a BMI of 32.7. 8. Hyperlipidemia. 9. Hypertension. 10. Hypothyroidism. 11. Seasonal allergies. 12. Degenerative joint disease. 13. Gastroesophageal reflux disease. PLAN: Monitor HH Q4 EGD today Transfuse PRN AM labs Cont IVF Cont current meds as below ASA and anticoag on hold Review of Systems - Review of Systems Cardiovascular: negative: chest pain, palpitations, orthopnea, paroxysmal nocturnal dyspnea, edema, light headedness, other Gastrointestinal: negative: Nausea, Vomiting, Abdominal Pain, Diarrhea, Constipation, Melena, Hematochezia, Other - Medications/Allergies Allergies/Adverse Reactions: Allergies Allergy/AdvReac Type Severity Reaction Status Date / Time codeine Allergy Rash Verified 05/13/18 08:47 Penicillins Allergy Rash Verified 05/13/18 08:47 Medications: Current Medications Acetaminophen (Tylenol) 650 mg PO Q4H PRN PRN Reason: Headache/Fever/Mild Pain (1-3) Hydrocodone Bitart/Acetaminophen (Clements 5/325) 1 tab PO Q6H PRN PRN Reason: Mild Pain (1-3) Amiodarone HCl (Cordarone) 400 mg PO BID [facility] Stop: 05/19/18 21:01 Last Admin: 05/13/18 21:03 Dose: 400 mg Amiodarone HCl (Cordarone) 200 mg PO BID [facility] Stop: 06/02/18 21:01 Amiodarone HCl (Cordarone) 200 mg PO DAILY [facility] Atorvastatin Calcium (Lipitor) 10 mg PO HS [facility] Last Admin: 05/13/18 21:03 Dose: 10 mg Calcium Carbonate (Tums) 1,000 mg PO Q4H PRN PRN Reason: Heartburn or Indigestion Clindamycin HCl (Cleocin) 300 mg PO TID [facility] Stop: 05/15/18 09:01 Last Admin: 05/13/18 21:03 Dose: 300 mg Sodium Chloride (Normal Saline 0.9%) 1,000 mls @ 125 mls/hr IV .Q8H [facility] Last Admin: 05/13/18 16:21 Dose: 1,000 mls Pantoprazole Sodium 80 mg/ (Sodium Chloride) 100 mls @ 10 mls/hr IVP INF [facility] Last Admin: 05/13/18 08:06 Dose: 100 mls Labetalol HCl (Normodyne) 10 mg SLOW IVP Q4H PRN PRN Reason: Systolic BP > 180 Levothyroxine Sodium (Synthroid) 88 mcg PO 0600 [facility] Last Admin: 05/13/18 12:50 Dose: 88 mcg Loratadine (Claritin) 10 mg PO DAILY [facility] Last Admin: 05/13/18 12:52 Dose: 10 mg Nitroglycerin (Nitrostat) 0.4 mg PO Q5MIN PRN PRN Reason: Chest Pain Saccharomyces Boulardii (Florastor) 250 mg PO DAILY [facility] Last Admin: 05/13/18 12:53 Dose: 250 mg Senna/Docusate Sodium (Senokot S) 2 tab PO BIDPRN PRN PRN Reason: Constipation Sodium Chloride (Flush - Normal Saline) 10 ml IVF Q12HR [facility] Last Admin: 05/13/18 21:03 Dose: Not Given Sodium Chloride (Flush - Normal Saline) 10 ml IVF PRN PRN PRN Reason: Saline Flush
[2018-05-13] MEDS ORDERED: Diltiazem 125 MG in Sodium Chloride 0.9% 100 ML IVPB SCH (22:30)
[2018-05-14] MEDS: Sodium Chloride 0.9% 1,000 ML IV SCH ×2 (00:25→03:10)
[2018-05-14] MEDS: Pantoprazole 80 MG in Sodium Chloride 0.9% 100 ML IVP SCH (03:12)
[2018-05-14] MEDS ORDERED: EPINEPHrine 1 MG/10 ML Abboject SYRINGE ONE (03:26)
[2018-05-14 03:33] LABS: #Eosinphils 0.1 thou/uL (0.0-0.7); #Lymphocytes 2.4 thou/uL (1.20-3.40); #Monocytes 0.8 thou/uL (0.11-0.59); #Neutrophils 11.1 thou/uL (1.40-6.50); %Basophils 0.2 % (0.0-1.0); %Eosinophils 0.8 % (0.0-10.0); %Lymphocytes 16.6 % (21.0-51.0); %Monocytes 5.2 % (0.0-10.0); %Neutrophils 77.1 % (42.0-75.0); Hemoglobin 6.3 g/dL (14.0-18.0); Mean Corpuscular HGB CONC 33.7 g/dL (32.0-36.0); Mean Corpuscular Hemoglobin 31.2 pg (27.0-31.0); Mean Corpuscular Volume 92.4 fL (78.0-98.0); Mean Platelet Volume 6.2 fL (7.4-10.4); Platelet Count 390 thou/uL (130-400); RBC Distribution Width 13.4 % (11.5-14.5); Red Blood Cell (RBC) Count 2.01 mill/uL (4.70-6.10); White Blood Cell (WBC) Count 14.4 thou/uL (4.8-10.8)
[2018-05-14 03:38] LABS: INR-International Normal Ratio 1.5
[2018-05-14 03:45] LABS: Anion Gap 17 mmol/L (10-20); BUN (Urea Nitrogen) 23 mg/dL (8.4-25.7); Calc. Creatinine Clearance 112 mL/min (70-130); Calcium 7.1 mg/dL (7.8-10.44); Carbon Dioxide 15 mmol/L (23-31); Chloride 111 mmol/L (98-107); Estimated GFR-MDRD 77; Glucose 265 mg/dL (83-110); Magnesium 1.7 mg/dL (1.6-2.6); Potassium 4.5 mmol/L (3.5-5.1); Sodium 138 mmol/L (136-145)
[2018-05-14] MEDS ORDERED: Ondansetron HCl/PF 4 MG/2 ML Vial IVP PRN (05:19)
[2018-05-14] MEDS ORDERED: Promethazine HCl 25 MG/ML VIAL SLOW IVP PRN (05:19)
[2018-05-14] MEDS ORDERED: Promethazine HCl 25 MG/ML VIAL IM PRN (05:19)
--- NOTE | 2018-05-14 06:08 | PDOC.EVN ---
Event Note - Event Note Event Note: nurse called concerned that pt's bp is low and is having bloody stools. went to see pt, appeared very pale and diaphoretic. pt has received total of 3 units of blood yestarday. will get 4 more units and transfuse 2 now. GI called to come in for EGD. Pt had bright blood per rectum.
[2018-05-14] MEDS ORDERED: Propofol 500 MG/50 ML VIAL ONE (06:15)
--- NOTE | 2018-05-14 06:35 | OP ---
DATE OF PROCEDURE: 05/14/2018 DECORATIVE GREENS CUTTER SURGEON: None. PROCEDURE PERFORMED: Esophagogastroduodenoscopy with control of hemorrhage. INDICATIONS FOR PROCEDURE: Recurrent upper gastrointestinal bleeding with acute blood loss anemia. The patient has a known history of duodenal ulcer hemorrhage, status post esophagogastroduodenoscopy with endoscopic therapy yesterday. MEDICATIONS: See Anesthesia record. FINDINGS: After discussion of the risks, benefits, and alternatives of the procedure, informed consent was obtained and witnessed. Pre-endoscopic cardiopulmonary examination was satisfactory. Time-out was performed before sedation was achieved. Sedation was achieved with Anesthesia assistance in the endoscopy unit. A Pentax adult therapeutic upper endoscope was placed into the oropharynx and passed through the cricopharyngeus under direct visualization. The esophageal mucosa appeared normal throughout. The endoscope was advanced into the stomach. Forward and retroflexed views of the entire gastric mucosa were obtained. The gastric mucosa appeared normal. The endoscope was passed through the pylorus and into the duodenum. Again, there was visualized a large ulcer on the superior surface of the duodenal bulb. This remains clean based with no evidence of bleeding. Again, there was a smaller ulcer in the second portion of the duodenum, which was also clean based. In the third portion of the duodenum, we again visualized the ulcer that was treated yesterday. At this time, there was a very large adherent clot in the area as well as active hemorrhage around the base of the clot. I used 10 mL of 1:10,000 epinephrine and injected it submucosally around the base of the clot. Following epinephrine injection, a 10-Luxembourgish bipolar probe was used to remove the clot from the ulcer bed. This was done successfully. The patient had a couple of areas in the ulcer bed with active hemorrhaging, one of these represented a visible vessel and this was cauterized with good hemostasis. The other actively hemorrhaging area appeared to be simply a defect in the ulcer base and likely represents a deeper vessel. Extensive cautery was applied to this area with the bipolar probe. In the end, I was able to achieve good hemostasis. The site was watched for several minutes following therapy and there was no re-bleeding during that time. The upper endoscope was then completely withdrawn, and the patient allowed to recover. The patient tolerated the procedure well. There were no immediate postprocedure complications. He is going to remain intubated and transferred to the ICU. IMPRESSION: 1. Actively bleeding ulcer with adherent clot in the third portion of the duodenum. 10 mL of epinephrine injected submucosally. Cauterized multiple bleeding areas of the ulcer bed with bipolar probe, with good hemostasis achieved. 2. No other changes from prior endoscopy. RECOMMENDATIONS: 1. ICU transfer. 2. Continue to follow closely, trend H and H, continue to transfuse, and resuscitate as needed. 3. Remain n.p.o. today. 4. Continue the PPI continuous infusion. Job ID: [id number]
[2018-05-14 07:04] LABS: Actual Bicarbonate (HCO3a) 15.6 mEq/L (22-28); Base Excess (BEa) -10.9 mEq/L (-2.0 to +3.0); CO2 Tension 37.2 mmHg (35.0-45.0); Calcium, Ionized 1.08 mmol/L (1.12-1.30); Carboxyhemoglobin (COHb) 1.6 gm% (0.0-3.0); Hemoglobin (Hb) 8.4 g/dL (14.0-18.0); Potassium - ABG Lab 4.78 mmol/L (3.70-5.30)
[2018-05-14 07:12] LABS: Puncture Site RRA; pH, Arterial 7.24 (7.35-7.45)
[2018-05-14] MEDS ORDERED: Sodium Bicarb 50 MEQ/50 ML Abboject 8.4% SYRINGE ONE (07:20)
[2018-05-14] MEDS: Levothyroxine Sodium 88 MCG TAB PO SCH (08:07)
[2018-05-14] MEDS: Loratadine 10 MG TAB PO SCH (08:26)
[2018-05-14] MEDS: Amiodarone 200 MG TAB PO SCH ×2 (08:26→20:43)
[2018-05-14] MEDS: Saccharomyces boulardii 250 MG CAP PO SCH (08:26)
[2018-05-14] MEDS: Clindamycin 150 MG CAP PO SCH ×3 (08:26→20:43)
[2018-05-14] MEDS ORDERED: Amiodarone 450 MG in Dextrose 5% in Water 250 ML IVPB SCH (08:30)
[2018-05-14] MEDS ORDERED: Dextrose 5 % And 0.9 % NaCl 1,000 ML IV SCH (08:30)
[2018-05-14] MEDS ORDERED: Magnesium 2 GM/50 ML 2 GM in Premix Bag 1 BAG IVPB SCH (09:15)
[2018-05-14 09:26] LABS: Hemoglobin 8.7 g/dL (14.0-18.0); Platelet Count 339 thou/uL (130-400)
[2018-05-14] MEDS ORDERED: Digoxin 0.5 MG/2 ML AMP SLOW IVP SCH ×3 (09:45→17:30)
[2018-05-14 10:10] LABS: CKMB 2.2 ng/mL (0-6.6)
--- NOTE | 2018-05-14 13:36 | CON ---
DATE OF CONSULTATION: 05/14/2018 SERVICE: Pulmonary Medicine. REASON FOR CONSULTATION: ICU patient. HISTORY OF PRESENT ILLNESS: The patient is a 72-year-old white male with past medical history significant for a bleeding ulcer. Ultimately, he presented to the hospital on 13 May with an upper GI bleed. He was intubated in and went down for an EGD. This was performed last night. Bleeding was stopped. He is currently on mechanical ventilation. He is quite awake. Denies any current chest pain, fevers, chills, nausea, or vomiting. Otherwise, there were no significant overnight events. I cannot get any additional elements of the history and his current condition. PAST MEDICAL HISTORY: 1. Coronary artery disease. 2. Atrial fibrillation, paroxysmal. 3. History of atrial flutter, status post ablation. 4. Sick sinus syndrome, pacemaker in place. 5. Hypertension. 6. Dyslipidemia. 7. Allergies, seasonal. 8. Status history of throat cancer, status post radiation therapy. 9. Gastroesophageal reflux disease. 10. Low testosterone. 11. Osteoarthritis. PAST SURGICAL HISTORY: 1. Coronary artery bypass graft placement. 2. Ablation for atrial flutter. 3. Pacemaker placement. 4. Back surgery. 5. Right shoulder surgery. 6. Right knee surgery. ALLERGIES: CODEINE AND PENICILLIN. MEDICATIONS: List of the patient's inpatient medications reviewed. No specific updates were made at this time. SOCIAL HISTORY: Negative for alcohol, tobacco, or illicit drug use currently. He quit smoking over 10 years ago but prior to that had a greater than 40 pack year history of smoking. He has no exposure to chemicals, dust, asbestos, or tuberculosis. FAMILY HISTORY: Noncontributory. REVIEW OF SYSTEMS: Could not be obtained as the patient is currently intubated. PHYSICAL EXAMINATION: VITAL SIGNS: Afebrile, pulse 135, blood pressure 99/78, respirations 22, saturation 99% on 31% FiO2 and a PEEP of 5. GENERAL: The patient is awake and alert, in no apparent distress. LUNGS: Decent air entry. There is no prolonged expiratory phase or wheezing present. HEART: Normal rate, regular. ABDOMEN: Soft, nontender, and nondistended. Bowel sounds are positive. MUSCULOSKELETAL: No cyanosis or clubbing. There is no pitting in the bilateral lower extremities. NEUROLOGIC: Grossly nonfocal. LABORATORY DATA: Hemoglobin 8.7, status post 2 units of blood transfused. His baseline is over 15 as recently as two weeks ago. White blood cell 14.4, platelets 390. INR 1.5, pH 7.24, pCO2 of 37, pO2 of 106, anion gap 17, creatinine 0.96. Basic metabolic profile is otherwise unremarkable. Calcium 7.1, magnesium 1.7. Ferritin 404, troponin 0.3, which is gently up-trending. Liver function studies are significant for minimally elevated AST and ALT. Urinalysis is essentially unremarkable. ASSESSMENT: 1. Acute blood loss anemia. 2. Peptic ulcer disease with duodenal ulcers. 3. Gastritis, mild. 4. Tachyarrhythmia, recently on Eliquis. 5. Acute respiratory failure secondary to inability to protect airway. DISCUSSION AND PLAN: The patient will be placed on a spontaneous breathing trial. If he meets criteria, extubation will be considered. We will trend his hemoglobins through time and keep him above 7. Pulmonary Critical Care will continue to follow along so long as he remains in this part of the hospital. Critical care time: 30 minutes. Job ID: [id number] MAURICE
[2018-05-14] MEDS ORDERED: PROPOFOL 200 MG/20 ML VIAL ONE ×2 (14:09)
[2018-05-14] MEDS ORDERED: Rocuronium Bromide 10 MG/ML (10ML VIAL) ONE (14:09)
[2018-05-14] MEDS ORDERED: PHENYLEPHRINE-NS 100 MCG/ML 10 ML SYRINGE ONE ×2 (14:09)
[2018-05-14] MEDS ORDERED: Succinylcholine Chloride 20 MG/ML 10 ml SYRINGE FS ONE ×2 (14:09)
[2018-05-14] MEDS ORDERED: Lidocaine 1% PF 5 ML VIAL ONE (14:09)
[2018-05-14 15:22] LABS: Hemoglobin 5.9 g/dL (14.0-18.0)
--- NOTE | 2018-05-14 15:36 | CON ---
DATE OF CONSULTATION: HISTORY OF PRESENT ILLNESS: Sang Gallego is a 72-year-old white male, who recently underwent CABG and was at rehab and has started to have gastrointestinal bleeding and has been readmitted. He initially presented on April 26 from the emergency room. He had previously been told that he had an irregular heartbeat, although he denied a history of atrial fibrillation. Also 25 years ago, he underwent cardiac catheterization and was told that he had 1% or 2% blockage. On the day of admission, he initially went to the hospital in [place] and was transferred here. He had been out doing yard work cutting his limbs and came in at approximately 1:30 p.m. Then in the early evening, he was eating dinner and went to bed, and had the beginning of central chest pressure and a feeling of shortness of breath. He took his blood pressure, it was approximately 160/120 with heart rate in the 160s. He repeated this several minutes later and since he got the same result, he called the EMS. He was taken to [place] ER and initial EKG revealed probable atrial flutter. He was given Lovenox 1 mg/kg. He then apparently converted to sinus rhythm. He did not have any further chest discomfort, but did develop a troponin up to 1.546 and it was felt that he had a non-STEMI. He underwent cardiac catheterization, which revealed a 60% to 70% proximal LAD, which was hazy, totally occluded mid circumflex with distal vessel filling from the right coronary artery. There was total occlusion of first obtuse marginal, it was filled from the left. Right coronary artery had an 80% mid stenosis. There was moderate anterior hypokinesis with ejection fraction of 45% to 50% He then underwent CABG x3 on May 01, 2018, with SANDERS to the LAD and saphenous vein graft to the second obtuse marginal and to the right posterior descending. He also had ligation of the left atrial appendage. This was performed by Dr. Mills. Initially, his postop course was unremarkable; however, he had recurrence of atrial flutter on May 03. Also with converting back to sinus rhythm, he would have up to a 5.7 second pause. He underwent atrial flutter ablation by Dr. Hutchinson. He also had a 7 second pause with converting. He then went into atrial fibrillation. He was loaded with amiodarone and the temporary epicardial leads were used over the weekend. Then on May 07, he underwent dual-chamber pacemaker placement by Dr. Hutchinson. He eventually was placed on Eliquis for his paroxysmal atrial fibrillation. He went to rehab hospital on May 09. He then began to notice dark stools and started to have bloody stools. He was admitted and has undergone EGD x2 with cauterization of bleeding duodenal ulcer both times. At present time, he is intubated, but alert. He developed a heart rate of 140.minute and cardiology is consulted. PAST MEDICAL HISTORY: Metoprolol in the past for premature beats, hypothyroidism, hypercholesterolemia, atrial flutter, and paroxysmal atrial fibrillation. MEDICATIONS: 1. Amiodarone 400 mg b.i.d. 2. Eliquis 5 b.i.d. 3. Aspirin 81 daily. 4. Lipitor 10 daily. 5. Clindamycin 300 t.i.d. 6. [place] p.r.n. 7. Lisinopril 2.5 mg b.i.d. 8. Cetirizine 10 mg daily. 9. Levothyroxine 88 mcg daily. 10. Omeprazole 20 daily. 11. Testosterone p.r.n. ALLERGIES: CODEINE AND PENICILLIN. PAST SURGICAL HISTORY: Operations; CABG, atrial flutter ablation, left atrial appendage ligation at the time of CABG, right shoulder surgery, laryngeal cancer and radiation therapy 4 or 5 years ago, right total knee replacement, and back surgery. SOCIAL HISTORY: He does not smoke or drink. FAMILY HISTORY: Negative for myocardial infarction or CABG. REVIEW OF SYSTEMS: A 12-point review of systems is not able to be obtained with the patient on ventilator. PHYSICAL EXAMINATION: VITAL SIGNS: Blood pressure 99/78 and pulse of 135. HEENT: PERRL. NECK: Supple. CHEST: Clear. CARDIAC: S1 and S2 normal without any S3, S4, or murmurs. ABDOMEN: Normal bowel sounds without tenderness. The abdomen was obese. EXTREMITIES: Revealed no clubbing, cyanosis, or edema. NEUROLOGIC: The patient is alert, but intubated. He will move all extremities. LABORATORY DATA: EKG on admission revealed normal sinus rhythm with possible inferior infarction. Repeat EKG now that he is in a rapid rate shows probable atrial tachycardia with a rate of 142 per minute, left axis deviation. Hemoglobin has been down to 6.3, is now up to 8.7. INR 1.5. A pH of 7.24, pCO2 of 37.2, and pO2 of 106.0. Sodium 138, potassium 4.5, chloride 111, carbon dioxide 15, BUN 23, and creatinine 0.96. Troponin I 0.310. IMPRESSION: 1. Upper gastrointestinal bleed secondary to duodenal ulcer, status post esophagogastroduodenoscopy and cauterization twice. The patient apparently was on chronic proton pump inhibitor and was discharged on omeprazole 20 mg daily. Despite this, he developed a GI bleed. 2. Status post coronary artery bypass graft and left atrial appendage ligation. 3. Recent non-ST segment elevation myocardial infarction prior to coronary artery bypass grafting. 4. Status post atrial flutter ablation. 5. Paroxysmal atrial fibrillation, on amiodarone and Eliquis. 6. Hypercholesterolemia. 7. Hypertension. PLAN: The patient will continue to transfuse p.r.n. He is on a proton pump drip. He has been given digoxin 0.5 mg IV, which slowed his rate from 142 to 132 per minute. This appears to be an atrial tachycardia; however, his pacemaker be interrogated to make sure this is not a flutter. He will continue to be loaded with digoxin. When his pacemaker evaluated, consideration will be given to rapid atrial pacing to try to terminate this arrhythmia. Job ID: [id number] [facility] SYSTEMSwapnil
[2018-05-14] MEDS ORDERED: Furosemide 20 MG/2 ML VIAL SLOW IVP PRN (15:43)
[2018-05-14] MEDS ORDERED: Fentanyl 100 MCG/2 ML VIAL ONE (17:41)
--- NOTE | 2018-05-14 18:13 | CON ---
DATE OF CONSULTATION: CHIEF COMPLAINT: Upper GI bleed. HISTORY: This is a 72-year-old male, who underwent coronary artery bypass grafting x3 two weeks ago. He developed an arrhythmia requiring ablation and then finally a pacemaker and he has been on Eliquis. On Monday, he had a near syncopal episode. At that time, he was hypertensive and tachycardic. Yesterday at 11:00 a.m., he had EGD and was found to have an ulcer in the third portion of the duodenum, which was cauterized. He bled again at 4:00 a.m. and this was repeated. He initially was having bright red blood per rectum. Now, he has had a couple of black stools. Again, he has been on Eliquis and aspirin. He is on a 6 unit of blood. PAST MEDICAL HISTORY: Heart disease and throat cancer. PAST SURGICAL HISTORY: He has had a right total knee replacement, CABG, back surgery, vocal cord surgeries, shoulder surgery. ALLERGIES: HE HAS ALLERGIES TO PENICILLIN AND CODEINE. MEDICATIONS: His medications include; 1. Amiodarone. 2. Testosterone. 3. Omeprazole. 4. Lisinopril. 5. Levothyroxine. 6. Hydrocodone. 7. Clindamycin. 8. Zyrtec. 9. Lipitor. 10. Aspirin. 11. Eliquis. 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 Quit smoking in . No alcohol. FAMILY HISTORY: Parents of old age. PHYSICAL EXAMINATION: VITAL SIGNS: Temperature 98.5, pulse 62, blood pressure 104/64. GENERAL: He is pale, but awake and alert. He denies any abdominal pain. HEENT: Otherwise unremarkable. LUNGS: Clear. He has healing incision, median sternotomy in left upper chest. ABDOMEN: Soft. No tenderness. No palpable masses. EXTREMITIES: Unremarkable. LABORATORY DATA: His hemoglobin currently is 5.9, hematocrit 19.5, white count was 14, and platelet count 339. Electrolytes show elevated glucose at 265. CO2 of 15. His PT is 18 with an INR of 1.5. ASSESSMENT: Upper GI bleed due to ulceration of the third portion of the duodenum. PLAN: GI is going to try one more time. If unsuccessful, needs a laparotomy. Job ID: [id number]
--- NOTE | 2018-05-14 19:16 | PRG ---
DATE OF SERVICE: 05/14/2018 SUBJECTIVE: Nurse has called me this evening noting that Mr. Gallego had dropped his hemoglobin to 5.9 at 1500 hours that was 8.7 and 8 in the morning. He has received a unit of blood. Since then, he has been hemodynamically stable yet he has had two melenic bloody stools. Dr. Villeda has been taking him over the weekend until when he checked out for occult today that if the patient bled again, he felt he should be brought back to the endoscopy suite one more time to control bleeding. If this is unsuccessful or if the bled again after that, he would need to go to the operating room. Apparently, he has an ulcer in the third part of the duodenum. PLAN: We will give a unit of FFP and then one more unit of blood and proceed with urgent endoscopy as he seems to have a repeat bleeding. Dr. Mercado is seeing the patient today. Further events will be determined on whether or not we controlled bleeding if we can, and this is it, will manage endoscopically. If we cannot control bleeding or if he rebled at a later date from this ulcer, he will need to have a surgery for definitive therapy. Job ID: [id number]
[2018-05-14 19:54] LABS: Hemoglobin 9.7 g/dL (14.0-18.0)
[2018-05-14] MEDS: Atorvastatin Calcium 10 MG TAB PO SCH (20:15)
--- NOTE | 2018-05-14 20:21 | EKG ---
Test Reason : Blood Pressure : / mmHG Vent. Rate : 142 BPM Atrial Rate : 075 BPM P-R Int : 000 ms QRS Dur : 086 ms QT Int : 350 ms P-R-T Axes : 000 -38 096 degrees QTc Int : 538 ms Supraventricular tachycardia Left axis deviation Cannot rule out Anterior infarct , age undetermined Abnormal ECG When compared with ECG of 12-MAY-2018 18:01, (Unconfirmed) Vent. rate has increased BY 58 BPM Confirmed by FELICIA MONTILLA, SPhil ([id number]) on 05/14/2018 8:20:31 PM Referred By: MAMI Confirmed By:DR. Caron DUARTE MD
--- NOTE | 2018-05-14 21:52 | PDOC.PN ---
- Subjective Encounter Start Date: 05/14/18 Encounter Start Time: 10:00 Patient seen and examined for GI bleeding. Melena +. No new complaints. No overnight events - Objective Resuscitation Status - Order Detail: 05/13/18 04:08 Resuscitation Status Routine Resuscitation Status: FULL: Full Resuscitation MAR Reviewed: Yes Vital Signs & Weight: Vital Signs (12 hours) Temp Pulse Pulse Resp BP BP Pulse Ox 05/14/18 20:23 73 05/14/18 20:00 98.1 F 05/14/18 16:18 98.5 F 68 24 H 143/67 H 05/14/18 12:16 130 H 05/14/18 12:00 98.7 F 100 05/14/18 10:53 99 05/14/18 10:21 135 H 99/78 Weight Weight 247 lb 12.8 oz Most Recent Monitor Data Heart Rate from ECG 75 NIBP 180/70 NIBP BP-Mean 106 Respiration from ECG 22 SpO2 96 I&O: 05/13/18 05/14/18 05/15/18 06:59 06:59 06:59 Intake Total 940 940 Output Total 240 Balance 940 700 Result Diagrams: 05/15/18 09:02 05/15/18 04:35 EKG Reviewed by me: Yes (Tele Afib RVR) Phys Exam - Physical Examination Constitutional: NAD Respiratory: no wheezing, no rhonchi Cardiovascular: no rub, irregular Gastrointestinal: soft, non-tender, positive bowel sounds Musculoskeletal: no edema Neurological: moves all 4 limbs Dx/Plan - Plan IMPRESSION: 1. Upper gastrointestinal bleeding. 2. Acute blood loss anemia. 3. Lightheadedness secondary to gastrointestinal bleeding. 4. Coronary artery disease with recent [place], requiring coronary artery bypass grafting. 5. Atrial flutter, status post ablation. 6. Paroxysmal atrial fibrillation, on amiodarone. 7. Obesity with a BMI of 32.7. 8. Hyperlipidemia. 9. Hypertension. 10. Hypothyroidism. 11. Seasonal allergies. 12. Degenerative joint disease. 13. Gastroesophageal reflux disease. PLAN: Monitor HH Repeat EGD today Transfuse 2 more units PRBC AM labs Cont current meds as below ASA and anticoag on hold Cont IVF Review of Systems - Review of Systems Respiratory: negative: Cough, Dry, Shortness of Breath, Hemoptysis, SOB with Excertion, Pleuritic Pain, Sputum, Wheezing Cardiovascular: negative: chest pain, palpitations, orthopnea, paroxysmal nocturnal dyspnea, edema, light headedness, other Gastrointestinal: negative: Nausea, Vomiting, Abdominal Pain, Diarrhea, Constipation, Melena, Hematochezia, Other - Medications/Allergies Allergies/Adverse Reactions: Allergies Allergy/AdvReac Type Severity Reaction Status Date / Time codeine Allergy Rash Verified 05/13/18 08:47 Penicillins Allergy Rash Verified 05/13/18 08:47 Medications: Current Medications Acetaminophen (Tylenol) 650 mg PO Q4H PRN PRN Reason: Headache/Fever/Mild Pain (1-3) Hydrocodone Bitart/Acetaminophen ([place] 5/325) 1 tab PO Q6H PRN PRN Reason: Mild Pain (1-3) Amiodarone HCl (Cordarone) 400 mg PO BID [facility] Stop: 05/19/18 21:01 Last Admin: 05/14/18 20:43 Dose: Not Given Amiodarone HCl (Cordarone) 200 mg PO BID [facility] Stop: 06/02/18 21:01 Amiodarone HCl (Cordarone) 200 mg PO DAILY [facility] Atorvastatin Calcium (Lipitor) 10 mg PO HS [facility] Last Admin: 05/14/18 20:15 Dose: Not Given Calcium Carbonate (Tums) 1,000 mg PO Q4H PRN PRN Reason: Heartburn or Indigestion Clindamycin HCl (Cleocin) 300 mg PO TID [facility] Stop: 05/15/18 09:01 Last Admin: 05/14/18 20:43 Dose: Not Given Digoxin (Lanoxin) 0.125 mg PO DAILY [facility] Diltiazem HCl (Cardizem) 30 mg PO Q6HR PRN PRN Reason: HR >120 sustained Furosemide (Lasix) 20 mg SLOW IVP DAILY PRN PRN Reason: Edema Pantoprazole Sodium 80 mg/ (Sodium Chloride) 100 mls @ 10 mls/hr IVP INF [facility] Last Admin: 05/14/18 03:12 Dose: 100 mls Sodium Chloride (1/2 Normal Saline) 1,000 mls @ 75 mls/hr IV .[id number] [facility] Labetalol HCl (Normodyne) 10 mg SLOW IVP Q4H PRN PRN Reason: Systolic BP > 180 Levothyroxine Sodium (Synthroid) 88 mcg PO 0600 [facility] Last Admin: 05/14/18 08:07 Dose: Not Given Loratadine (Claritin) 10 mg PO DAILY [facility] Last Admin: 05/14/18 08:26 Dose: Not Given Nitroglycerin (Nitrostat) 0.4 mg PO Q5MIN PRN PRN Reason: Chest Pain Saccharomyces Boulardii (Florastor) 250 mg PO DAILY [facility] Last Admin: 05/14/18 08:26 Dose: Not Given Senna/Docusate Sodium (Senokot S) 2 tab PO BIDPRN PRN PRN Reason: Constipation Sodium Chloride (Flush - Normal Saline) 10 ml IVF Q12HR [facility] Last Admin: 05/14/18 08:42 Dose: 10 ml Sodium Chloride (Flush - Normal Saline) 10 ml IVF PRN PRN PRN Reason: Saline Flush
[2018-05-14] MEDS ORDERED: Amiodarone HCl 150 MG in Dextrose 5% in Water 100 ML IVPB SCH (22:30)
[2018-05-14] MEDS: Sodium Chloride 0.45% 1,000 ML IV SCH (22:31)
[2018-05-14] MEDS: Amiodarone HCl 450 MG in Dextrose 5% in Water 250 ML IVPB SCH (22:56)
--- NOTE | 2018-05-15 01:27 | OP ---
DATE OF PROCEDURE: 05/14/2018 PROCEDURE PERFORMED: EGD control of hemorrhage. PRE-PROCEDURE DIAGNOSIS: History of recurrent gastrointestinal bleeding. This patient has been scoped twice this admission; once at 3 this morning and once on 05/13 at 11 in the morning. At the first, he had bleeding identified at the lateral wall of the third part of the duodenum that had visible vessel. He had 2 clean ulcers as well. There was cautery with hemostasis. He did well until early this morning and around 3 to 4 this morning, Dr. Villeda re-scoped him with clot in the third part of the duodenal ulcer and he was injected 10 mL of 1:10,000 epinephrine and then cauterized the area. His hemoglobin was 6 at 3:11 in the morning. After 3 units of blood, it was 8.7. This afternoon at 1500, his hemoglobin was 5.9. He had 2 large melenic stools, some with a little bit of red tinge, but no overt red clots. Decision was made to bring him back to endoscopy as Dr. Villeda indicated he had high risk for bleeding and felt that if there were signs of bleeding and drop in hemoglobin, he should go for second-look. ANESTHESIA: Endotracheal anesthesia. FINDINGS: 1. Shallow ulcer in the bulb of the duodenum, superior, posterior, nonbleeding. 2. Ulcer just distal to the ampulla in the medial wall of the second part of duodenum, not bleeding. Those two were biopsied as they had somewhat atypical appearance. 3. Large ulcer in the lateral wall of the third part of the duodenum. There is some deformation. It is unclear how much of this is from cautery and how much related to some type of other lesion. In any event, the visible vessel was noted in this lesion. It was injected with 1:10,000 epinephrine 4 mL and then the vessel was cauterized and ablated. There was another small vessel in the posterior wall which is cauterized, but completely ablate. Two clips were placed over that. At the time of the procedure, there was no bleeding. 4. Lateral aspect nonbleeding of this ulcer were biopsied to rule out malignancy or CMV or other infection. RECOMMENDATIONS: 1. The patient received 1 unit of blood and 1 unit of FFP and surgery, so 2 units since his hemoglobin was 5.9. He is going to have an H and H in 30 minutes upstairs. He has remained stable. 2. Continue Protonix drip. 3. N.p.o. ANESTHESIA: TIVA. PROCEDURE IN DETAIL: After the patient and son were informed of risks, benefits, possible complications of endoscopy, including perforation, bleeding, reaction to medication, aspiration as well as the fact that with this being the third attempt for GI endoscopic control of the bleed. If this fails, he would need to go to surgery. They understood that we went and signed consent to go to endoscopy emergently. He had already been started on transfusion in the ICU. In the endoscopy suite, he was intubated carefully and once the airway was secured, the endoscope was advanced through the bite block, the esophagus, stomach, and second and third portion of the duodenum. In the third portion of duodenum, the ulcer was seen on the lateral wall. Visible vessel seen in the crater with evidence of previous treatment for bleeding. This was injected with 1:10,000 epinephrine and cauterized with 10-Yi heater probe, ablated. There seemed to be another small visible vessel at the kind of 3 to 2 o'clock position on the ulcer and this was ablated, but it did not seem to completely ablate and 2 hemoclips were placed over this area. The area was observed and there was no further bleeding. There was no other visible vessel seen. There were no pulsatile areas seen in the base of the ulcer. The ulcer did seem to be firm, especially at the 10 o'clock position in somewhat raised and irregular; it is unclear if this is from repetitive cautery or if this could be a malignancy of some sort. Biopsies were obtained from this area. There was no bleeding. The biopsies were then taken from the 2 other ulcers in the proximal duodenum that were nonbleeding and this was all submitted to Pathology. The stomach was re-surveyed and showed no evidence of lesions such as visible vessels. Retroflexed views were normal. The scope was returned in forward position. The patient tolerated the procedure well. He was extubated and brought to recovery room in stable condition. Job ID: [id number]
[2018-05-15] MEDS: Pantoprazole 80 MG in Sodium Chloride 0.9% 100 ML IVP SCH ×3 (01:29→22:05)
[2018-05-15 05:27] LABS: Band 6 % (5-11); Hemoglobin 7.9 g/dL (14.0-18.0); Hypochromia SLIGHT = 6-15 cells (100X) (0-5/hpf); Lymphocytes 7 % (21-51); MDiff Complete? YES; Mean Corpuscular HGB CONC 33.9 g/dL (32.0-36.0); Mean Corpuscular Hemoglobin 30.7 pg (27.0-31.0); Mean Corpuscular Volume 90.3 fL (78.0-98.0); Monocytes 4 % (0-10); Neutrophil 83 % (42-75); Nucleated RBC 1 % (0); Platelet Count 275 thou/uL (130-400); Platelet Morphology Comment Appears Adequate; RBC Distribution Width 14.2 % (11.5-14.5); Red Blood Cell (RBC) Count 2.57 mill/uL (4.70-6.10); White Blood Cell (WBC) Count 28.5 thou/uL (4.8-10.8)
[2018-05-15 05:31] LABS: Anion Gap 11 mmol/L (10-20); BUN (Urea Nitrogen) 40 mg/dL (8.4-25.7); Calc. Creatinine Clearance 69 mL/min (70-130); Calcium 7.5 mg/dL (7.8-10.44); Carbon Dioxide 20 mmol/L (23-31); Chloride 111 mmol/L (98-107); Estimated GFR-MDRD 44; Glucose 122 mg/dL (83-110); Magnesium 1.9 mg/dL (1.6-2.6); Potassium 4.7 mmol/L (3.5-5.1); Sodium 137 mmol/L (136-145)
[2018-05-15] MEDS: Levothyroxine Sodium 88 MCG TAB PO SCH (05:37)
[2018-05-15] MEDS: Amiodarone HCl 450 MG in Dextrose 5% in Water 250 ML IVPB SCH ×2 (06:36→22:04)
[2018-05-15] MEDS ORDERED: Digoxin 0.125 MG TAB PO SCH (09:00)
[2018-05-15 09:23] LABS: Hemoglobin 7.7 g/dL (14.0-18.0)
[2018-05-15] MEDS: Clindamycin 150 MG CAP PO SCH (09:29)
[2018-05-15] MEDS: Loratadine 10 MG TAB PO SCH (09:29)
[2018-05-15] MEDS: Saccharomyces boulardii 250 MG CAP PO SCH (09:29)
[2018-05-15] MEDS ORDERED: Digoxin 0.5 MG/2 ML AMP SLOW IVP SCH (09:30)
[2018-05-15] MEDS: Sodium Chloride 0.45% 1,000 ML IV SCH (12:30)
--- NOTE | 2018-05-15 17:24 | PRG ---
DATE OF SERVICE: 05/15/2018 SUBJECTIVE: Events have been reviewed. He has had no abdominal cramping. He denies having a bowel movement since last night. OBJECTIVE: VITAL SIGNS: His heart rate in the 60s, blood pressure 143/62, and respiratory rate is 20. Intake and outputs positive 2213. LUNGS: Clear. Sternal incision is without erythema or drainage. HEART: Regular rhythm. S1 and S2 are normal. ABDOMEN: Soft and nontender. EXTREMITIES: Without edema. IMPRESSION AND PLAN: Gastrointestinal bleed secondary to duodenal ulcer. There is 1 in the second part of the duodenum as well. Neither of these ulcers were bleeding or both biopsied. The third lesion was seen with a visible vessel, this was injected. We were awaiting pathology, although this appears to be clinically stable without any clinical signs of bleeding at this time. Will remain in the ICU. Job ID: [id number]
[2018-05-15] MEDS: Atorvastatin Calcium 10 MG TAB PO SCH (20:07)
--- NOTE | 2018-05-15 22:01 | PRG ---
DATE OF SERVICE: 05/15/2018 SUBJECTIVE: Mr. Gallego has had 1 non-bloody bowel movement this afternoon. He has had no further overt bleeding. He has no abdominal pain. He is tolerating clear liquids well. OBJECTIVE: VITAL SIGNS: His temperature is 97.9, pulse is 63, blood pressure is 135/61. GENERAL: He is in no acute distress. Alert and oriented x3. LUNGS: Clear to auscultation bilaterally. HEART: Regular rate and rhythm without murmur. ABDOMEN: Soft, nontender, nondistended. Bowel sounds are present. EXTREMITIES: No lower extremity edema. LABS: His hemoglobin is 7.7 this morning. IMPRESSION: 1. GI bleed secondary to ulcer in the third portion of the duodenum with a visible vessel that required electrocautery and repeat endoscopy with additional cautery and clipping of the ulcer. This appears to have controlled the hemorrhage at this point, given that his hemoglobin responded to transfusion from 5.9 to 7.7 after 2 units. He is having no further overt bleeding. 2. Anemia of acute blood loss. RECOMMENDATIONS: 1. If he has no further bleeding by tomorrow morning and his hemoglobin remains stable, then we should be able to advance his diet tomorrow morning. 2. Continue proton pump inhibitor. Job ID: [id number]
--- NOTE | 2018-05-15 23:28 | PDOC.PN ---
- Subjective Encounter Start Date: 05/15/18 Encounter Start Time: 12:00 Patient seen and examined for GI bleeding. No new complaints. No overnight events - Objective Resuscitation Status - Order Detail: 05/13/18 04:08 Resuscitation Status Routine Resuscitation Status: FULL: Full Resuscitation MAR Reviewed: Yes Vital Signs & Weight: Vital Signs (12 hours) Temp Pulse Ox 05/15/18 20:00 97 05/15/18 19:00 97.9 F 05/15/18 12:00 97.5 F L Weight Weight 247 lb 12.8 oz Most Recent Monitor Data Heart Rate from ECG 67 NIBP 146/61 NIBP BP-Mean 89 Respiration from ECG 16 SpO2 96 I&O: 05/14/18 05/15/18 05/16/18 06:59 06:59 06:59 Intake Total 940 2868 1564 Output Total 655 1325 Balance 940 2213 239 Result Diagrams: 05/16/18 05:10 05/16/18 04:09 EKG Reviewed by me: Yes (Tele SR) Phys Exam - Physical Examination Constitutional: NAD Respiratory: no wheezing, no rhonchi Cardiovascular: RRR, no rub Gastrointestinal: soft, non-tender, positive bowel sounds Musculoskeletal: no edema Dx/Plan - Plan DVT proph w/SCDs IMPRESSION: 1. Upper gastrointestinal bleeding. 2. Acute blood loss anemia. 3. Lightheadedness secondary to gastrointestinal bleeding. 4. Coronary artery disease with recent [id number]-SR-[id number] [place], requiring coronary artery bypass grafting. 5. Atrial flutter, status post ablation. 6. Paroxysmal atrial fibrillation, on amiodarone. 7. Obesity with a BMI of 32.7. 8. Hyperlipidemia. 9. Hypertension. 10. Hypothyroidism. 11. Seasonal allergies. 12. Degenerative joint disease. 13. Gastroesophageal reflux disease. PLAN: Monitor HH Cont current meds as below ASA and anticoag on hold Cont IVF Cont CCU monitoring Review of Systems - Review of Systems Respiratory: negative: Cough, Dry, Shortness of Breath, Hemoptysis, SOB with Excertion, Pleuritic Pain, Sputum, Wheezing Cardiovascular: negative: chest pain, palpitations, orthopnea, paroxysmal nocturnal dyspnea, edema, light headedness, other - Medications/Allergies Allergies/Adverse Reactions: Allergies Allergy/AdvReac Type Severity Reaction Status Date / Time codeine Allergy Rash Verified 05/13/18 08:47 Penicillins Allergy Rash Verified 05/13/18 08:47 Medications: Current Medications Acetaminophen (Tylenol) 650 mg PO Q4H PRN PRN Reason: Headache/Fever/Mild Pain (1-3) Hydrocodone Bitart/Acetaminophen ([place] 5/325) 1 tab PO Q6H PRN PRN Reason: Mild Pain (1-3) Atorvastatin Calcium (Lipitor) 10 mg PO HS [facility] Last Admin: 05/15/18 20:07 Dose: 10 mg Calcium Carbonate (Tums) 1,000 mg PO Q4H PRN PRN Reason: Heartburn or Indigestion Digoxin (Lanoxin) 0.125 mg PO DAILY [facility] Diltiazem HCl (Cardizem) 30 mg PO Q6HR PRN PRN Reason: HR >120 sustained Furosemide (Lasix) 20 mg SLOW IVP DAILY PRN PRN Reason: Edema Pantoprazole Sodium 80 mg/ (Sodium Chloride) 100 mls @ 10 mls/hr IVP INF [facility] Last Admin: 05/15/18 22:05 Dose: 100 mls Sodium Chloride (1/2 Normal Saline) 1,000 mls @ 75 mls/hr IV .[id number] [facility] Last Admin: 05/15/18 12:30 Dose: 1,000 mls Amiodarone HCl 450 mg/Miscellaneous Medication 1 each/ Dextrose/Water 259 mls @ 0 mls/hr IVPB INF [facility]; Protocol Last Admin: 05/15/18 22:04 Dose: 259 mls Labetalol HCl (Normodyne) 10 mg SLOW IVP Q4H PRN PRN Reason: Systolic BP > 180 Levothyroxine Sodium (Synthroid) 88 mcg PO 0600 [facility] Last Admin: 05/15/18 05:37 Dose: Not Given Loratadine (Claritin) 10 mg PO DAILY [facility] Last Admin: 05/15/18 09:29 Dose: Not Given Nitroglycerin (Nitrostat) 0.4 mg PO Q5MIN PRN PRN Reason: Chest Pain Saccharomyces Boulardii (Florastor) 250 mg PO DAILY [facility] Last Admin: 05/15/18 09:29 Dose: Not Given Senna/Docusate Sodium (Senokot S) 2 tab PO BIDPRN PRN PRN Reason: Constipation Sodium Chloride (Flush - Normal Saline) 10 ml IVF Q12HR [facility] Last Admin: 05/15/18 20:07 Dose: 10 ml Sodium Chloride (Flush - Normal Saline) 10 ml IVF PRN PRN PRN Reason: Saline Flush
[2018-05-16] MEDS: Sodium Chloride 0.45% 1,000 ML IV SCH ×2 (03:15→19:57)
[2018-05-16 05:04] LABS: Anion Gap 14 mmol/L (10-20); BUN (Urea Nitrogen) 24 mg/dL (8.4-25.7); Calc. Creatinine Clearance 131 mL/min (70-130); Calcium 7.3 mg/dL (7.8-10.44); Carbon Dioxide 16 mmol/L (23-31); Chloride 108 mmol/L (98-107); Estimated GFR-MDRD Greater than 90; Glucose 93 mg/dL (83-110); Potassium 4.1 mmol/L (3.5-5.1); Sodium 134 mmol/L (136-145)
[2018-05-16 05:30] LABS: #Eosinphils 0.1 thou/uL (0.0-0.7); #Lymphocytes 2.3 thou/uL (1.20-3.40); #Monocytes 1.4 thou/uL (0.11-0.59); %Basophils 0.1 % (0.0-1.0); %Eosinophils 0.5 % (0.0-10.0); %Lymphocytes 15.6 % (21.0-51.0); %Monocytes 9.6 % (0.0-10.0); %Neutrophils 74.2 % (42.0-75.0); Mean Corpuscular HGB CONC 34.2 g/dL (32.0-36.0); Mean Corpuscular Hemoglobin 31.3 pg (27.0-31.0); Mean Corpuscular Volume 91.6 fL (78.0-98.0); Mean Platelet Volume 6.2 fL (7.4-10.4); Platelet Count 265 thou/uL (130-400); RBC Distribution Width 14.4 % (11.5-14.5); Red Blood Cell (RBC) Count 2.22 mill/uL (4.70-6.10); White Blood Cell (WBC) Count 14.8 thou/uL (4.8-10.8)
[2018-05-16] MEDS: Levothyroxine Sodium 88 MCG TAB PO SCH (06:26)
[2018-05-16 06:27] LABS: Digoxin 1.11 ng/mL (0.8-2.0)
[2018-05-16] MEDS: Saccharomyces boulardii 250 MG CAP PO SCH (08:04)
[2018-05-16] MEDS: Digoxin 0.125 MG TAB PO SCH (08:06)
[2018-05-16] MEDS: Loratadine 10 MG TAB PO SCH (08:06)
[2018-05-16] MEDS: Sodium Chloride 0.9% 1,000 ML IV SCH (10:03)
[2018-05-16] MEDS: Pantoprazole 80 MG in Sodium Chloride 0.9% 100 ML IVP SCH ×2 (11:20→21:17)
[2018-05-16] MEDS: Amiodarone HCl 450 MG in Dextrose 5% in Water 250 ML IVPB SCH (13:45)
--- NOTE | 2018-05-16 14:56 | PRG ---
DATE OF SERVICE: 05/16/2018 SUBJECTIVE: Mr. Gallego had 1 dark stool this morning. No red blood with it. He is feeling much better today. He is tolerating his clear liquids. No nausea or vomiting. OBJECTIVE: VITAL SIGNS: Temperature is 98.2, blood pressure 156/71, and pulse 68. GENERAL: He is in no acute distress. He is still pale. Alert and oriented x3. LUNGS: Clear to auscultation bilaterally. HEART: Regular rate and rhythm without murmur. ABDOMEN: Soft, nontender, and nondistended. Bowel sounds are present. EXTREMITIES: Trace lower extremity edema. IMPRESSION: 1. Gastrointestinal bleed secondary to duodenal ulcer, status post cautery and clipping of a vessel in the duodenal ulcer. He has been on proton pump inhibitor. His hemoglobin did decrease from 7.7 yesterday morning to 7.0, however, this might still be re-equilibrating. He did have 1 dark stool, but does not appear to be having significant active rapid bleeding at least. 2. Anemia of acute blood loss. RECOMMENDATIONS: 1. He has blood transfusion ordered for today. 2. Continue proton pump inhibitor drip. We should be able to transition this to twice daily dosing tomorrow. 3. Advance to a heart healthy diet today. 4. Follow trend of the hemoglobin. Job ID: [id number]
[2018-05-16 18:10] LABS: H. pylori IgA ABS Less than 9.0 units (0.0-8.9); H. pylori IgG ABS 0.11 (0.00-0.79); H. pylori IgM ABS Less than 9.0 units (0.0-8.9)
[2018-05-16] MEDS: Atorvastatin Calcium 10 MG TAB PO SCH (20:06)
--- NOTE | 2018-05-16 20:56 | PRG ---
DATE OF SERVICE: 05/16/2018 SUBJECTIVE: Mr. Gallego has no new complaints. OBJECTIVE: VITAL SIGNS: Blood pressure has been stable. It has actually been mildly elevated at 164/69 this afternoon. Heart rate is in 60s and respiratory rates in the 20s. LABORATORY DATA: His hemoglobin was 7.9 yesterday morning, it was 7.0 this morning; white count was 14.8 and platelets 265. Intake and output was +941, so it is dropped. His hemoglobin is 7 may be delusional, but given his recent cardiac surgery and his significant ulcerative disease, I have recommended transfusion of 2 units of blood products in the event that he bleeds again. He is certainly at high risk for bleeding again, but it clinically appears to have done so far. He will remain in the critical care unit for now. Job ID: [id number]
--- NOTE | 2018-05-16 21:00 | PDOC.PN ---
- Subjective Encounter Start Date: 05/16/18 Encounter Start Time: 11:30 Patient seen and examined for GIB. No melena. No new complaints. No overnight events - Objective Resuscitation Status - Order Detail: 05/13/18 04:08 Resuscitation Status Routine Resuscitation Status: FULL: Full Resuscitation MAR Reviewed: Yes Vital Signs & Weight: Vital Signs (12 hours) Temp Pulse Resp BP Pulse Ox 05/16/18 17:01 98.1 F 65 16 155/66 H 94 L 05/16/18 16:45 98.3 F 66 20 161/65 H 96 05/16/18 16:33 64 16 158/67 H 97 05/16/18 14:50 97.7 F 60 20 147/64 H 98 05/16/18 14:35 98.1 F 67 20 130/58 L 97 05/16/18 11:45 98.2 F Weight Weight 247 lb 12.8 oz Most Recent Monitor Data Heart Rate from ECG 68 NIBP 163/66 NIBP BP-Mean 98 Respiration from ECG 27 SpO2 100 I&O: 05/15/18 05/16/18 05/17/18 06:59 06:59 06:59 Intake Total 2868 2921 1619 Output Total 655 1980 1730 Balance 2213 941 -111 Result Diagrams: 05/16/18 05:10 05/16/18 04:09 EKG Reviewed by me: Yes (Tele SR) Phys Exam - Physical Examination Constitutional: NAD Respiratory: no wheezing, no rhonchi Cardiovascular: RRR, no rub Gastrointestinal: soft, non-tender, positive bowel sounds Musculoskeletal: no edema Neurological: moves all 4 limbs Dx/Plan - Plan DVT proph w/SCDs IMPRESSION: 1. Upper gastrointestinal bleeding. 2. Acute blood loss anemia. 3. Lightheadedness secondary to gastrointestinal bleeding. 4. Coronary artery disease with recent plf-AC-lzloyveuo [place], requiring coronary artery bypass grafting. 5. Atrial flutter, status post ablation. 6. Paroxysmal atrial fibrillation, on amiodarone. 7. Obesity with a BMI of 32.7. 8. Hyperlipidemia. 9. Hypertension. 10. Hypothyroidism. 11. Seasonal allergies. 12. Degenerative joint disease. 13. Gastroesophageal reflux disease. PLAN: Change IVF to KVO Cont Clear liqd diet Cont Protonix drip AM labs On Amiodarone drip Cont current meds as below ASA and anticoag on hold DC rachel in AM Repeat Hb later today Transfuse 1 unit PRBC if Hb <7 Review of Systems - Review of Systems Respiratory: negative: Cough, Dry, Shortness of Breath, Hemoptysis, SOB with Excertion, Pleuritic Pain, Sputum, Wheezing Cardiovascular: negative: chest pain, palpitations, orthopnea, paroxysmal nocturnal dyspnea, edema, light headedness, other - Medications/Allergies Allergies/Adverse Reactions: Allergies Allergy/AdvReac Type Severity Reaction Status Date / Time codeine Allergy Rash Verified 05/13/18 08:47 Penicillins Allergy Rash Verified 05/13/18 08:47 Medications: Current Medications Acetaminophen (Tylenol) 650 mg PO Q4H PRN PRN Reason: Headache/Fever/Mild Pain (1-3) Hydrocodone Bitart/Acetaminophen ([place] 5/325) 1 tab PO Q6H PRN PRN Reason: Mild Pain (1-3) Atorvastatin Calcium (Lipitor) 10 mg PO HS [facility] Last Admin: 05/16/18 20:06 Dose: 10 mg Calcium Carbonate (Tums) 1,000 mg PO Q4H PRN PRN Reason: Heartburn or Indigestion Digoxin (Lanoxin) 0.125 mg PO DAILY [facility] Last Admin: 05/16/18 08:06 Dose: 0.125 mg Diltiazem HCl (Cardizem) 30 mg PO Q6HR PRN PRN Reason: HR >120 sustained Furosemide (Lasix) 20 mg SLOW IVP DAILY PRN PRN Reason: Edema Pantoprazole Sodium 80 mg/ (Sodium Chloride) 100 mls @ 10 mls/hr IVP INF [facility] Last Admin: 05/16/18 11:20 Dose: 100 mls Amiodarone HCl 450 mg/Miscellaneous Medication 1 each/ Dextrose/Water 259 mls @ 0 mls/hr IVPB INF [facility]; Protocol Last Admin: 05/16/18 13:45 Dose: 259 mls Sodium Chloride (1/2 Normal Saline) 1,000 mls @ 30 mls/hr IV .Q24H [facility] Last Admin: 05/16/18 19:57 Dose: 1,000 mls Labetalol HCl (Normodyne) 10 mg SLOW IVP Q4H PRN PRN Reason: Systolic BP > 180 Levothyroxine Sodium (Synthroid) 88 mcg PO 0600 [facility] Last Admin: 05/16/18 06:26 Dose: 88 mcg Loratadine (Claritin) 10 mg PO DAILY [facility] Last Admin: 05/16/18 08:06 Dose: 10 mg Nitroglycerin (Nitrostat) 0.4 mg PO Q5MIN PRN PRN Reason: Chest Pain Saccharomyces Boulardii (Florastor) 250 mg PO DAILY [facility] Last Admin: 05/16/18 08:04 Dose: 250 mg Senna/Docusate Sodium (Senokot S) 2 tab PO BIDPRN PRN PRN Reason: Constipation Sodium Chloride (Flush - Normal Saline) 10 ml IVF Q12HR [facility] Last Admin: 05/16/18 20:06 Dose: 10 ml Sodium Chloride (Flush - Normal Saline) 10 ml IVF PRN PRN PRN Reason: Saline Flush
[2018-05-16 21:26] LABS: Hemoglobin 8.7 g/dL (14.0-18.0); Platelet Count 249 thou/uL (130-400)
[2018-05-17 05:56] LABS: #Eosinphils 0.1 thou/uL (0.0-0.7); #Lymphocytes 1.7 thou/uL (1.20-3.40); #Monocytes 1.1 thou/uL (0.11-0.59); #Neutrophils 7.9 thou/uL (1.40-6.50); %Basophils 0.5 % (0.0-1.0); %Eosinophils 0.8 % (0.0-10.0); %Lymphocytes 15.6 % (21.0-51.0); %Neutrophils 73.1 % (42.0-75.0); Hemoglobin 8.9 g/dL (14.0-18.0); Mean Corpuscular HGB CONC 34.2 g/dL (32.0-36.0); Mean Corpuscular Hemoglobin 31.6 pg (27.0-31.0); Mean Corpuscular Volume 92.5 fL (78.0-98.0); Mean Platelet Volume 6.6 fL (7.4-10.4); Platelet Count 247 thou/uL (130-400); RBC Distribution Width 14.4 % (11.5-14.5); Red Blood Cell (RBC) Count 2.81 mill/uL (4.70-6.10); White Blood Cell (WBC) Count 10.8 thou/uL (4.8-10.8)
[2018-05-17 06:20] LABS: Anion Gap 13 mmol/L (10-20); BUN (Urea Nitrogen) 11 mg/dL (8.4-25.7); Calc. Creatinine Clearance 150 mL/min (70-130); Calcium 7.7 mg/dL (7.8-10.44); Carbon Dioxide 21 mmol/L (23-31); Chloride 107 mmol/L (98-107); Estimated GFR-MDRD Greater than 90; Glucose 95 mg/dL (83-110); Potassium 3.9 mmol/L (3.5-5.1); Sodium 137 mmol/L (136-145)
[2018-05-17] MEDS: Levothyroxine Sodium 88 MCG TAB PO SCH (06:35)
[2018-05-17] MEDS ORDERED: Pantoprazole 80 MG, Admixture Fee 1 EACH in Sodium Chloride 0.9% 100 ML IVP SCH (07:15)
[2018-05-17] MEDS: Amiodarone HCl 450 MG in Dextrose 5% in Water 250 ML IVPB SCH (08:27)
[2018-05-17] MEDS: Digoxin 0.125 MG TAB PO SCH (08:28)
[2018-05-17] MEDS: Loratadine 10 MG TAB PO SCH (08:31)
[2018-05-17] MEDS: Saccharomyces boulardii 250 MG CAP PO SCH (08:31)
--- NOTE | 2018-05-17 09:36 | PRG ---
DATE OF SERVICE: 05/17/2018 SUBJECTIVE: Mr. Gallego has no new complaints. He had a brown bowel movement, he says last night. OBJECTIVE: VITAL SIGNS: He is afebrile. Heart rate 62, respiratory rate 16, and blood pressure 143/77. NEUROLOGIC: He says he has walked to the bathroom and back. He says his arms are weaker than his legs, and he actually felt steady on his feet. LUNGS: Clear. HEART: Regular rhythm. ABDOMEN: Soft and nontender. LABORATORY DATA: Hemoglobin went from 7 to 8.7 last night and is 8.9 g this morning. IMPRESSION: Status post gastrointestinal bleed secondary to multiple duodenal ulcers. Pathology reports look like they analyzed all specimens as one. Report suggested that these were all benign ulcers. He has had no clinical signs of recurrent bleeding. He appears to be stable. I think his left upper extremity weakness especially in his hands is more secondary to edema than his myopathy. He continues on a proton pump inhibitor drip, to be switched to b.i.d. dosing today per Dr. Darnell's note. We will continue to follow probably for one more day out of the ICU if he remains stable. Job ID: [id number]
[2018-05-17] MEDS: Sodium Chloride 0.45% 1,000 ML IV SCH (12:19)
--- NOTE | 2018-05-17 16:55 | PDOC.PN ---
- Subjective Encounter Start Date: 05/17/18 Encounter Start Time: 11:30 Patient seen and examined for GI bleeding. No new melena or hematochezia. No new complaints. No overnight events - Objective Resuscitation Status - Order Detail: 05/13/18 04:08 Resuscitation Status Routine Resuscitation Status: FULL: Full Resuscitation MAR Reviewed: Yes Vital Signs & Weight: Vital Signs (12 hours) Temp Pulse Pulse Pulse Resp BP BP 05/17/18 15:51 98 F 70 16 05/17/18 14:02 85 70 156/74 H 148/67 H 05/17/18 12:00 148/65 H 143/65 H 05/17/18 11:39 98.1 F 67 16 05/17/18 09:41 75 87 124/65 139/64 05/17/18 08:55 05/17/18 08:54 05/17/18 08:53 05/17/18 08:36 97.9 F 62 16 05/17/18 08:28 67 05/17/18 08:00 05/17/18 05:26 98.2 F 63 20 BP BP BP BP Pulse Ox 05/17/18 15:51 173/77 H 95 05/17/18 14:02 05/17/18 12:00 05/17/18 11:39 143/65 H 95 05/17/18 09:41 05/17/18 08:55 127/60 05/17/18 08:54 119/69 05/17/18 08:53 145/73 H 05/17/18 08:36 143/77 H 05/17/18 08:28 05/17/18 08:00 98 05/17/18 05:26 130/62 96 Weight Weight 247 lb 12.8 oz Most Recent Monitor Data Heart Rate from ECG 62 NIBP 141/59 NIBP BP-Mean 86 Respiration from ECG 24 SpO2 97 I&O: 05/16/18 05/17/18 05/18/18 06:59 06:59 06:59 Intake Total 8601 2139 480 Output Total 1980 4180 Balance 941 -2041 480 Result Diagrams: 05/17/18 05:16 05/17/18 05:16 EKG Reviewed by me: Yes (Tele SR) Phys Exam - Physical Examination Constitutional: NAD Respiratory: no wheezing, no rhonchi Cardiovascular: RRR, no rub Gastrointestinal: soft, non-tender, positive bowel sounds Musculoskeletal: no edema Neurological: moves all 4 limbs Dx/Plan - Plan DVT proph w/SCDs IMPRESSION: 1. Upper gastrointestinal bleeding - on Protonix drip 2. Acute blood loss anemia s/p 9 units PRBC 3. Lightheadedness secondary to gastrointestinal bleeding. 4. Coronary artery disease with recent [id number] [place], requiring coronary artery bypass grafting. 5. Atrial flutter, status post ablation. 6. Paroxysmal atrial fibrillation with RVR, on amiodarone drip 7. Obesity with a BMI of 32.7. 8. Hyperlipidemia. 9. Hypertension. 10. Hypothyroidism. 11. Seasonal allergies. 12. Degenerative joint disease. 13. Gastroesophageal reflux disease. PLAN: DC IVF Cont full liqd diet Cont Protonix drip On Amiodarone drip Cont current meds as below ASA and anticoag on hold AM labs Restart Lisinopril Review of Systems - Review of Systems Respiratory: negative: Cough, Dry, Shortness of Breath, Hemoptysis, SOB with Excertion, Pleuritic Pain, Sputum, Wheezing Cardiovascular: negative: chest pain, palpitations, orthopnea, paroxysmal nocturnal dyspnea, edema, light headedness, other Gastrointestinal: negative: Nausea, Vomiting, Abdominal Pain, Diarrhea, Constipation, Melena, Hematochezia, Other - Medications/Allergies Allergies/Adverse Reactions: Allergies Allergy/AdvReac Type Severity Reaction Status Date / Time codeine Allergy Rash Verified 05/13/18 08:47 Penicillins Allergy Rash Verified 05/13/18 08:47 Medications: Current Medications Acetaminophen (Tylenol) 650 mg PO Q4H PRN PRN Reason: Headache/Fever/Mild Pain (1-3) Hydrocodone Bitart/Acetaminophen ([place] 5/325) 1 tab PO Q6H PRN PRN Reason: Mild Pain (1-3) Atorvastatin Calcium (Lipitor) 10 mg PO HS [facility] Last Admin: 05/16/18 20:06 Dose: 10 mg Calcium Carbonate (Tums) 1,000 mg PO Q4H PRN PRN Reason: Heartburn or Indigestion Digoxin (Lanoxin) 0.125 mg PO DAILY [facility] Last Admin: 05/17/18 08:28 Dose: 0.125 mg Diltiazem HCl (Cardizem) 30 mg PO Q6HR PRN PRN Reason: HR >120 sustained Furosemide (Lasix) 20 mg SLOW IVP DAILY PRN PRN Reason: Edema Amiodarone HCl 450 mg/Miscellaneous Medication 1 each/ Dextrose/Water 259 mls @ 0 mls/hr IVPB INF [facility]; Protocol Last Admin: 05/17/18 08:27 Dose: 259 mls Pantoprazole Sodium 80 mg/Miscellaneous Medication 1 each/ Sodium Chloride 100 mls @ 10 mls/hr IVP INF [facility] Last Admin: 05/17/18 08:27 Dose: 100 mls Labetalol HCl (Normodyne) 10 mg SLOW IVP Q4H PRN PRN Reason: Systolic BP > 180 Levothyroxine Sodium (Synthroid) 88 mcg PO 0600 [facility] Last Admin: 05/17/18 06:35 Dose: 88 mcg Loratadine (Claritin) 10 mg PO DAILY [facility] Last Admin: 05/17/18 08:31 Dose: 10 mg Nitroglycerin (Nitrostat) 0.4 mg PO Q5MIN PRN PRN Reason: Chest Pain Saccharomyces Boulardii (Florastor) 250 mg PO DAILY [facility] Last Admin: 05/17/18 08:31 Dose: 250 mg Senna/Docusate Sodium (Senokot S) 2 tab PO BIDPRN PRN PRN Reason: Constipation Sodium Chloride (Flush - Normal Saline) 10 ml IVF Q12HR [facility] Last Admin: 05/17/18 08:32 Dose: Not Given Sodium Chloride (Flush - Normal Saline) 10 ml IVF PRN PRN PRN Reason: Saline Flush
[2018-05-17] MEDS ORDERED: Labetalol HCl 100 MG/20 ML VIAL SLOW IVP PRN (16:58)
[2018-05-17] MEDS: Atorvastatin Calcium 10 MG TAB PO SCH (21:37)
[2018-05-17] MEDS: Amiodarone 200 MG TAB PO SCH (21:37)
[2018-05-17] MEDS: Lisinopril 2.5 MG TAB PO SCH (21:37)
[2018-05-18 05:16] LABS: #Eosinphils 0.1 thou/uL (0.0-0.7); #Lymphocytes 1.4 thou/uL (1.20-3.40); #Monocytes 1.2 thou/uL (0.11-0.59); #Neutrophils 7.9 thou/uL (1.40-6.50); %Basophils 0.1 % (0.0-1.0); %Eosinophils 0.7 % (0.0-10.0); %Lymphocytes 13.2 % (21.0-51.0); %Monocytes 11.2 % (0.0-10.0); %Neutrophils 74.7 % (42.0-75.0); Hemoglobin 8.9 g/dL (14.0-18.0); Mean Corpuscular HGB CONC 32.9 g/dL (32.0-36.0); Mean Corpuscular Hemoglobin 30.8 pg (27.0-31.0); Mean Corpuscular Volume 93.4 fL (78.0-98.0); Mean Platelet Volume 6.2 fL (7.4-10.4); Platelet Count 246 thou/uL (130-400); RBC Distribution Width 14.4 % (11.5-14.5); Red Blood Cell (RBC) Count 2.89 mill/uL (4.70-6.10); White Blood Cell (WBC) Count 10.5 thou/uL (4.8-10.8)
[2018-05-18 05:32] LABS: Digoxin 0.64 ng/mL (0.8-2.0)
[2018-05-18 05:34] LABS: Anion Gap 10 mmol/L (10-20); BUN (Urea Nitrogen) 6 mg/dL (8.4-25.7); Calc. Creatinine Clearance 156 mL/min (70-130); Calcium 8.1 mg/dL (7.8-10.44); Carbon Dioxide 26 mmol/L (23-31); Chloride 105 mmol/L (98-107); Estimated GFR-MDRD Greater than 90; Glucose 104 mg/dL (83-110); Magnesium 2.1 mg/dL (1.6-2.6); Potassium 3.8 mmol/L (3.5-5.1); Sodium 137 mmol/L (136-145)
[2018-05-18] MEDS: Levothyroxine Sodium 88 MCG TAB PO SCH (07:32)
[2018-05-18] MEDS: Digoxin 0.125 MG TAB PO SCH (09:19)
[2018-05-18] MEDS: Saccharomyces boulardii 250 MG CAP PO SCH (09:19)
[2018-05-18] MEDS: Lisinopril 2.5 MG TAB PO SCH ×2 (09:19→21:17)
[2018-05-18] MEDS: Amiodarone 200 MG TAB PO SCH ×2 (09:19→21:17)
[2018-05-18] MEDS: Loratadine 10 MG TAB PO SCH (09:20)
[2018-05-18] MEDS ORDERED: Furosemide 20 MG/2 ML VIAL SLOW IVP SCH (11:00)
[2018-05-18] MEDS: Potassium Chloride 10 MEQ TAB PO SCH ×2 (12:02→16:05)
[2018-05-18] MEDS: Clindamycin 150 MG CAP PO SCH ×2 (16:05→21:17)
--- NOTE | 2018-05-18 16:57 | PRG ---
DATE OF SERVICE: 05/18/2018 SUBJECTIVE: Mr. Gallego is tolerating solid diet. He has had smears of brown stool. No abdominal pain. OBJECTIVE: VITAL SIGNS: Temperature is 97.2, pulse 71, and blood pressure 126/58. GENERAL: He is in no acute distress. Alert and oriented x3. HEENT: Eyes have no scleral icterus. Oropharynx is clear without lesions. No cervical or supraclavicular lymphadenopathy. LUNGS: Clear to auscultation bilaterally. HEART: Regular rate and rhythm without murmur. ABDOMEN: Soft, nontender, and nondistended. Bowel sounds are present. EXTREMITIES: 1+ pitting lower extremity edema and upper extremity edema. LABORATORY DATA: Hemoglobin is 8.9. IMPRESSION: 1. GI bleed secondary to duodenal ulcer, status post cautery and clipping of vessel in the third portion of the duodenum. Hemoglobin has been stable. He is having no further overt bleeding. 2. Anemia of acute blood loss. 3. Atrial fibrillation. RECOMMENDATIONS: 1. Change oral proton pump inhibitor. 2. Anticipate discharge home tomorrow. 3. It should be okay to restart aspirin 81 mg. 4. I would hold anticoagulation for now given the severity of the bleed and the unusual location of the ulcer. He should follow up in GI clinic in two weeks to evaluate his clinical progress and at that point, we can decide whether or not it will be necessary to perform followup endoscopy to re-evaluate the ulcer. Job ID: [id number]
--- NOTE | 2018-05-18 20:36 | PDOC.PN ---
- Subjective Encounter Start Date: 05/18/18 Encounter Start Time: 09:30 Patient seen and examined for GI bleeding. No new complaints. No overnight events - Objective Resuscitation Status - Order Detail: 05/13/18 04:08 Resuscitation Status Routine Resuscitation Status: FULL: Full Resuscitation MAR Reviewed: Yes Vital Signs & Weight: Vital Signs (12 hours) Temp Pulse Pulse Pulse Resp BP BP 05/18/18 16:01 97.2 F L 71 18 05/18/18 12:29 79 91 116/58 L 120/56 L 05/18/18 12:02 98.0 F 67 18 05/18/18 10:00 05/18/18 09:19 71 05/18/18 08:57 05/18/18 08:54 85 75 140/69 128/58 L BP BP BP Pulse Ox Pulse Ox 05/18/18 16:01 126/58 L 93 L 05/18/18 12:29 95 05/18/18 12:02 110/76 96 05/18/18 10:00 140/69 119/62 131/63 05/18/18 09:19 05/18/18 08:57 94 L 05/18/18 08:54 Weight Weight 247 lb 12.8 oz Most Recent Monitor Data Heart Rate from ECG 62 NIBP 141/59 NIBP BP-Mean 86 Respiration from ECG 24 SpO2 97 I&O: 05/17/18 05/18/18 05/19/18 06:59 06:59 06:59 Intake Total 2139 590 Output Total 4180 Balance -2041 590 Result Diagrams: 05/18/18 05:03 05/18/18 05:03 EKG Reviewed by me: Yes (Tele SR, Had short run of SVT) Phys Exam - Physical Examination Constitutional: NAD Respiratory: no wheezing, no rhonchi Cardiovascular: RRR, no rub Gastrointestinal: soft, non-tender, positive bowel sounds Dx/Plan - Plan DVT proph w/SCDs IMPRESSION: 1. Upper gastrointestinal bleeding due to duodenal ulcer 2. Acute blood loss anemia s/p 9 units PRBC 3. Lightheadedness secondary to gastrointestinal bleeding. improved 4. Coronary artery disease with recent [id number] [place], requiring coronary artery bypass grafting. 5. Atrial flutter, status post ablation. 6. Paroxysmal atrial fibrillation with RVR, on amiodarone - rate controlled. in SR 7. Obesity with a BMI of 32.7. 8. Hyperlipidemia. 9. Hypertension. 10. Hypothyroidism. 11. Seasonal allergies. 12. Degenerative joint disease. 13. Gastroesophageal reflux disease. PLAN: Advance to Regular diet AM labs One dose of IV Lasix due to iatrogenic volume overload Resume Clindamycin (Prophylaxis after pacemaker) Cont Protonix BID PO On Amiodarone loading Cont current meds as below Resume ASA Anticoag on hold until seen by GI in 1-2 weeks Cont Lisinopril Review of Systems - Review of Systems Respiratory: negative: Cough, Dry, Shortness of Breath, Hemoptysis, SOB with Excertion, Pleuritic Pain, Sputum, Wheezing Cardiovascular: negative: chest pain, palpitations, orthopnea, paroxysmal nocturnal dyspnea, edema, light headedness, other Gastrointestinal: negative: Nausea, Vomiting, Abdominal Pain, Diarrhea, Constipation, Melena, Hematochezia, Other Genitourinary: negative: Dysuria, Frequency, Incontinence, Hematuria, Retention , Other - Medications/Allergies Allergies/Adverse Reactions: Allergies Allergy/AdvReac Type Severity Reaction Status Date / Time codeine Allergy Rash Verified 05/13/18 08:47 Penicillins Allergy Rash Verified 05/13/18 08:47 Medications: Current Medications Acetaminophen (Tylenol) 650 mg PO Q4H PRN PRN Reason: Headache/Fever/Mild Pain (1-3) Hydrocodone Bitart/Acetaminophen ([place] 5/325) 1 tab PO Q6H PRN PRN Reason: Mild Pain (1-3) Amiodarone HCl (Cordarone) 200 mg PO BID [facility] Last Admin: 05/18/18 09:19 Dose: 200 mg Aspirin (Ecotrin) 81 mg PO DAILY [facility] Atorvastatin Calcium (Lipitor) 10 mg PO HS [facility] Last Admin: 05/17/18 21:37 Dose: 10 mg Calcium Carbonate (Tums) 1,000 mg PO Q4H PRN PRN Reason: Heartburn or Indigestion Clindamycin HCl (Cleocin) 300 mg PO TID [facility] Last Admin: 05/18/18 16:05 Dose: 300 mg Digoxin (Lanoxin) 0.25 mg PO TuSa@0900 [facility] Digoxin (Lanoxin) 0.125 mg PO SuMoWeThFr@0900 [facility] Diltiazem HCl (Cardizem) 30 mg PO Q6HR PRN PRN Reason: HR >120 sustained Furosemide (Lasix) 20 mg SLOW IVP DAILY PRN PRN Reason: Edema Labetalol HCl (Normodyne) 10 mg SLOW IVP Q4H PRN PRN Reason: Systolic BP > 180 Labetalol HCl (Normodyne) 10 mg SLOW IVP Q4H PRN PRN Reason: Systolic BP > 180 Levothyroxine Sodium (Synthroid) 88 mcg PO 0600 [facility] Last Admin: 05/18/18 07:32 Dose: 88 mcg Lisinopril (Zestril) 2.5 mg PO BID [facility] Last Admin: 05/18/18 09:19 Dose: 2.5 mg Loratadine (Claritin) 10 mg PO DAILY [facility] Last Admin: 05/18/18 09:20 Dose: 10 mg Nitroglycerin (Nitrostat) 0.4 mg PO Q5MIN PRN PRN Reason: Chest Pain Pantoprazole Sodium (Protonix) 40 mg PO BID [facility] Saccharomyces Boulardii (Florastor) 250 mg PO DAILY [facility] Last Admin: 05/18/18 09:19 Dose: 250 mg Senna/Docusate Sodium (Senokot S) 2 tab PO BIDPRN PRN PRN Reason: Constipation Sodium Chloride (Flush - Normal Saline) 10 ml IVF Q12HR [facility] Last Admin: 05/18/18 09:20 Dose: 10 ml Sodium Chloride (Flush - Normal Saline) 10 ml IVF PRN PRN PRN Reason: Saline Flush
[2018-05-18] MEDS: Atorvastatin Calcium 10 MG TAB PO SCH (21:17)
[2018-05-19] MEDS: Levothyroxine Sodium 88 MCG TAB PO SCH (05:17)
[2018-05-19 06:32] LABS: #Eosinphils 0.1 thou/uL (0.0-0.7); #Lymphocytes 1.6 thou/uL (1.20-3.40); #Monocytes 1.2 thou/uL (0.11-0.59); #Neutrophils 8.2 thou/uL (1.40-6.50); %Eosinophils 0.8 % (0.0-10.0); %Monocytes 10.8 % (0.0-10.0); %Neutrophils 74.3 % (42.0-75.0); Hemoglobin 9.4 g/dL (14.0-18.0); Mean Corpuscular HGB CONC 31.9 g/dL (32.0-36.0); Mean Corpuscular Hemoglobin 30.1 pg (27.0-31.0); Mean Corpuscular Volume 94.4 fL (78.0-98.0); Mean Platelet Volume 6.7 fL (7.4-10.4); Platelet Count 322 thou/uL (130-400); RBC Distribution Width 14.8 % (11.5-14.5); Red Blood Cell (RBC) Count 3.11 mill/uL (4.70-6.10); White Blood Cell (WBC) Count 11.1 thou/uL (4.8-10.8)
[2018-05-19 06:49] LABS: Anion Gap 11 mmol/L (10-20); BUN (Urea Nitrogen) 7 mg/dL (8.4-25.7); Calc. Creatinine Clearance 146 mL/min (70-130); Calcium 8.4 mg/dL (7.8-10.44); Carbon Dioxide 26 mmol/L (23-31); Chloride 103 mmol/L (98-107); Estimated GFR-MDRD Greater than 90; Glucose 132 mg/dL (83-110); Potassium 3.9 mmol/L (3.5-5.1); Sodium 136 mmol/L (136-145)
[2018-05-19 08:53] VITALS: TEMP 97.7
[2018-05-19] MEDS ORDERED: Aspirin 81 mg Enteric Coated Tablet PO SCH (09:00)
[2018-05-19] MEDS ORDERED: Digoxin 0.125 MG TAB PO SCH (09:00)
[2018-05-19] MEDS: Lisinopril 2.5 MG TAB PO SCH (09:26)
[2018-05-19] MEDS: Clindamycin 150 MG CAP PO SCH (09:27)
[2018-05-19] MEDS: Amiodarone 200 MG TAB PO SCH (09:27)
[2018-05-19] MEDS: Loratadine 10 MG TAB PO SCH (09:27)
[2018-05-19] MEDS: Saccharomyces boulardii 250 MG CAP PO SCH (09:27)
[2018-05-19 11:05] VITALS: BP 143/65
--- NOTE | 2018-05-20 07:54 | DIS ---
DATE OF ADMISSION: 05/12/2018 DATE OF DISCHARGE: 05/19/2018 DISCHARGE DISPOSITION: Home. FOLLOWUP: 1. Follow up with primary care physician, Dr. Butch Rucker in 1 week. 2. Follow up with Dr. Zacarias Park, Dr. Darnell, and cardiovascular as scheduled. 3. Outpatient cardiac rehab. ALLERGIES: THE PATIENT IS ALLERGIC TO CODEINE AND PENICILLIN. DISCHARGE MEDICATIONS: 1. Aspirin 81 mg daily. 2. Amiodarone 200 mg twice daily for 2 weeks, then 200 mg daily. 3. Clindamycin for pacemaker prophylaxis. 4. Digoxin 0.125 mg on every day except for Tuesdays and Monday. 5. Digoxin 0.25 mg on Tuesdays and Saturdays. 6. Lisinopril 2.5 mg b.i.d. 7. Protonix 40 mg b.i.d. 8. Lipitor 10 mg at bedtime. 9. Testosterone pump as directed. 10. Levothyroxine 88 mcg daily. 11. Cetirizine 10 mg daily. The patient was seen on the day of discharge. Denies any new complaints. BRIEF HOSPITAL COURSE: The patient is a 72-year-old male who underwent recent coronary artery bypass grafting and pacemaker placement, presented to the hospital with rectal bleeding. Please refer to the history and physical for further details. The patient was admitted to the hospital with a diagnosis of upper GI bleeding. His hemoglobin on admission was 8.0. He was seen by Gastroenterology. He underwent EGD on the that showed 3 duodenal ulcers with visible vessel in the third portion of the duodenum that was cauterized. There was also some mild gastritis. The patient restarted bleeding, requiring two more EGDs. He dropped his H and H to 5.9. He had a total of 9 units of PRBC along with 1 unit of FFP during this hospital stay. He was monitored in the intensive care unit. He was seen by multiple consultants including Critical Care and Cardiology. He developed atrial fibrillation with rapid ventricular response, requiring amiodarone drip. Later on, digoxin was added as well. Aspirin was restarted on the day of discharge. The patient will hold Eliquis until seen by Dr. Darnell in a week or two. His hemoglobin has been stable over the last 2 to 3 days. He has been cleared by consultants for discharge. He will continue Protonix 40 mg b.i.d. FINAL DIAGNOSES: 1. Upper gastrointestinal bleeding secondary to duodenal ulcer, requiring 3 EGDs. 2. Acute blood loss anemia, status post 9 units of PRBC and 1 unit of FFP. 3. Lightheadedness, near syncope secondary to #1. 4. Coronary artery disease, status post recent [id number] myocardial infarction, requiring coronary artery bypass graft. 5. Atrial flutter, status post ablation. 6. Paroxysmal atrial fibrillation with rapid ventricular response, requiring amiodarone drip as well as digoxin. 7. Obesity with a BMI of 32.7. 8. Hypertension. 9. Hyperlipidemia. 10. Hypothyroidism. 11. Seasonal allergies. 12. Degenerative joint disease. 13. Gastroesophageal reflux disease. PLAN: Plan was discussed with the patient in detail. He stated understanding. Job ID: [id number]
[2018-05-20] MEDS ORDERED: Digoxin 0.125 MG TAB PO SCH ×2 (09:00)
[2018-05-20] MEDS ORDERED: Amiodarone 200 MG TAB PO SCH (09:00)
[2018-06-03] MEDS ORDERED: Amiodarone 200 MG TAB PO SCH (09:00)
== END 2018-05-19 12:00 | disposition home or self-care (01) | DRG 377 ==
LOC: ERS 17:49 → ERHOLD 20:51 → IMCU/EMU 05-13 17:35 → CCU 05-14 06:30 → 2SE 05-17 01:56 → 2NO 05-18 12:39
PROVIDERS: ADMIT Family Medicine; ATTEND Family Medicine
PROC: 30233N1 Transfusion of Nonautologous Red Blood Cells into Peripheral Vein, Percutaneous Approach (ICD-10-PCS; principal; 2018-05-13)
PROC: 0W3P8ZZ Control Bleeding in Gastrointestinal Tract, Via Natural or Artificial Opening Endoscopic (ICD-10-PCS; 2018-05-13)
PROC: 30233L1 Transfusion of Nonautologous Fresh Plasma into Peripheral Vein, Percutaneous Approach (ICD-10-PCS; 2018-05-13)
PROC: 0W3P8ZZ Control Bleeding in Gastrointestinal Tract, Via Natural or Artificial Opening Endoscopic (ICD-10-PCS; 2018-05-14)
PROC: 0DB98ZX Excision of Duodenum, Via Natural or Artificial Opening Endoscopic, Diagnostic (ICD-10-PCS; 2018-05-14)
PROC: 0W3P8ZZ Control Bleeding in Gastrointestinal Tract, Via Natural or Artificial Opening Endoscopic (ICD-10-PCS; 2018-05-14)
DX: K26.4 Chronic or unspecified duodenal ulcer with hemorrhage (principal); I21.4 Non-ST elevation (NSTEMI) myocardial infarction; J96.00 Acute respiratory failure, unspecified whether with hypoxia or hypercapnia; D62 Acute posthemorrhagic anemia; I48.0 Paroxysmal atrial fibrillation; K29.70 Gastritis, unspecified, without bleeding; I25.10 Atherosclerotic heart disease of native coronary artery without angina pectoris; Z95.0 Presence of cardiac pacemaker; K21.9 Gastro-esophageal reflux disease without esophagitis; I10 Essential (primary) hypertension; E66.9 Obesity, unspecified; M19.90 Unspecified osteoarthritis, unspecified site; E29.1 Testicular hypofunction; E03.9 Hypothyroidism, unspecified; Z87.891 Personal history of nicotine dependence; Z85.89 Personal history of malignant neoplasm of other organs and systems; Z95.1 Presence of aortocoronary bypass graft; Z79.01 Long term (current) use of anticoagulants; Z79.82 Long term (current) use of aspirin; Z68.32 Body mass index [BMI] 32.0-32.9, adult; Z88.0 Allergy status to penicillin; Z88.8 Allergy status to other drugs, medicaments and biological substances
CPT/HCPCS: 36415; 36416; 36430; 80048; 80053; 80162; 81003; 81015; 82553; 82728; 82805; 83540; 83550; 83735; 84484; 85014; 85018; 85025; 85049; 85610; 86850; 86900; 86901; 88305; 93005; 93010; 93798; 94002; 94760; 96365; 96366; C9113; J0171; J0282; J1160; J1940; J2001; J2704; J3010; J3475; J7050; J7070; P9016; P9059

== ENCOUNTER 2018-06-13 08:00 | Day surgery (SDC) | payer MEDICARE, BC ==
[2018-06-12 14:38] VITALS: BMI 28.5
[2018-06-13] MEDS ORDERED: Benzocaine 20% Spray 60 ML CAN ONE (09:26)
--- NOTE | 2018-06-13 11:01 | OP ---
DATE OF PROCEDURE: 06/13/2018 PROCEDURES PERFORMED: Esophagogastroduodenoscopy and push enteroscopy to the proximal jejunum with biopsy. PREOPERATIVE DIAGNOSES: Anemia of acute blood loss and followup of duodenal ulcer. DESCRIPTION OF PROCEDURE: Informed consent was obtained from the patient. He was sedated with total intravenous anesthesia. The colonoscope was advanced through the patient's mouth and easily down to the proximal jejunum. There was a 1.2 cm ulcer in the proximal third portion of the duodenum. This had somewhat heaped up edges, but the base of this appears to have epithelialized. Biopsies were obtained from the edges of the ulcer. The remainder of the proximal jejunum and mucosa throughout the duodenum was normal. The pylorus was normal. The stomach was normal including retroflexed views. The esophagus and GE junction were normal. IMPRESSION: 1. A 1.2 cm ulcer in the proximal third portion of the duodenum. The base has epithelialized; however, the edges still appear slightly heaped up, so biopsies were obtained. Previously, the biopsies were negative from the site. 2. Otherwise normal push enteroscopy to the proximal jejunum. RECOMMENDATIONS: 1. Await histopathology. 2. It should be okay to restart Eliquis at this point. 3. Follow up in GI Clinic in 4 weeks. Job ID: [id number]
[2018-06-13] MEDS ORDERED: Lidocaine 1% PF 5 ML VIAL ONE (13:28)
[2018-06-13] MEDS ORDERED: PROPOFOL 200 MG/20 ML VIAL ONE (13:28)
== END 2018-06-13 11:15 | disposition home or self-care (01) ==
LOC: SDC 08:00
PROVIDERS: ATTEND Internal Medicine Gastroenterology
PROC: 0DB98ZX Excision of Duodenum, Via Natural or Artificial Opening Endoscopic, Diagnostic (ICD-10-PCS; principal; 2018-06-13)
DX: K26.9 Duodenal ulcer, unspecified as acute or chronic, without hemorrhage or perforation (principal); D62 Acute posthemorrhagic anemia; I48.91 Unspecified atrial fibrillation; I25.10 Atherosclerotic heart disease of native coronary artery without angina pectoris; I25.2 Old myocardial infarction; E78.00 Pure hypercholesterolemia, unspecified; I10 Essential (primary) hypertension; I48.92 Unspecified atrial flutter; Z87.891 Personal history of nicotine dependence; Z79.82 Long term (current) use of aspirin; Z79.899 Other long term (current) drug therapy; Z88.0 Allergy status to penicillin; Z88.5 Allergy status to narcotic agent
CPT/HCPCS: 88305; J2001; J2704

== ENCOUNTER 2018-08-17 11:13 | Outpatient (CLI) | payer MEDICARE, BC ==
[2018-08-17 12:15] LABS: Hemoglobin 11.8 g/dL (14.0-18.0); Mean Corpuscular HGB CONC 31.9 g/dL (32.0-36.0); Mean Corpuscular Hemoglobin 26.7 pg (27.0-31.0); Mean Corpuscular Volume 83.5 fL (78.0-98.0); Mean Platelet Volume 7.8 fL (7.4-10.4); Platelet Count 249 thou/uL (130-400); RBC Distribution Width 15.5 % (11.5-14.5); Red Blood Cell (RBC) Count 4.43 mill/uL (4.70-6.10); White Blood Cell (WBC) Count 7.2 thou/uL (4.8-10.8)
[2018-08-17 12:18] LABS: INR-International Normal Ratio 1.3; PTT 35.3 SEC (22.9-36.1); Prothrombin Time 16.3 SEC (12.0-14.7)
[2018-08-17 12:35] LABS: Anion Gap 12 mmol/L (10-20); BUN (Urea Nitrogen) 14 mg/dL (8.4-25.7); Calc. Creatinine Clearance 0 mL/min (70-130); Calcium 9.5 mg/dL (7.8-10.44); Carbon Dioxide 25 mmol/L (23-31); Chloride 104 mmol/L (98-107); Estimated GFR-MDRD 79; Glucose 85 mg/dL (83-110); Potassium 4.9 mmol/L (3.5-5.1); Sodium 136 mmol/L (136-145)
== END 2018-08-17 11:14 | disposition home or self-care (01) ==
LOC: LABBT 11:13
PROVIDERS: ATTEND Internal Medicine Cardiovascular Disease
DX: Z01.818 Encounter for other preprocedural examination (principal); I48.91 Unspecified atrial fibrillation
CPT/HCPCS: 80048; 85027; 85610; 85730; 93005; 93010

== ENCOUNTER 2018-08-20 10:47 | Day surgery (SDC) | payer MEDICARE, BC ==
[2018-08-17 11:31] VITALS: BMI 29.8
[2018-08-20] MEDS ORDERED: PROPOFOL 200 MG/20 ML VIAL ONE (13:40)
[2018-08-20] MEDS ORDERED: PROPOFOL 40 ML ONE (13:56)
--- NOTE | 2018-08-21 10:25 | ECHO ---
CARDIOLOGY PROCEDURE NOTE: Date: 08/20/18 PROCEDURE: Transesophageal echocardiogram. REASON FOR PROCEDURE: I am seeing Mr. Gallego for a STEFANY. He underwent coronary artery bypass grafting surgery in April 18 and subsequent left atrial appendage ligation was done. He has also had a CTI ablation, currently suppressed from atrial fibrillation with amiodarone. Is here for STEFANY to rule out residual leak throu gh the surgical left atrial appendage closure line. PROCEDURE DETAILS: The patient was given propofol by anesthesia specialist. After adequate level of sedation achieved, t he standard transesophageal echocardiogram probe was passed into the esophagus without difficulty. Th e patient tolerated the procedure well. No complications noted. RESULTS: Left atrium well visualized, mildly enlarged. Left atrial appendage is well seen. Surgical closure li ne is well visualized. There is a trivial, maybe up to 2 mm diameter, flow is noted through the left atrial appendage surgical closure line. There is flow visualized inside the left atrial appendage as well. Echo lucency is seen. No clots are directly seen. 4/4 pulmonary veins well seen. Mitral valve h as mild regurgitation. Tricuspid valve has trace regurgitation. Aortic valve has trivial regurgitatio n. Pulmonic valve is nonregurgitant. No valvular stenosis identified. Left ventricular systolic funct ion is preserved. Right ventricular chamber sizes are normal. No pericardial effusion noted. Visualiz ed portions of the ascending and descending aorta without aneurysm, dissection, or atheroma. CONCLUSIONS: 1. Trace flow identified through the left atrial appendage surgical closure line with some flow insi de the left atrial appendage is seen. Plan for now is to continue anticoagulation. Will consider perc utaneous closure with Amplatz device. Will discuss with Dr. Cabrera. 2. Normal left ventricular systolic function. 3. No significant valvular heart disease, except for mild mitral regurgitation.
== END 2018-08-20 15:33 | disposition home or self-care (01) ==
LOC: CCL 10:47
PROVIDERS: ATTEND Internal Medicine Cardiovascular Disease
PROC: B24BZZ4 Ultrasonography of Heart with Aorta, Transesophageal (ICD-10-PCS; principal; 2018-08-20)
DX: I48.0 Paroxysmal atrial fibrillation (principal); I34.0 Nonrheumatic mitral (valve) insufficiency; I48.3 Typical atrial flutter; I25.10 Atherosclerotic heart disease of native coronary artery without angina pectoris; I25.2 Old myocardial infarction; I10 Essential (primary) hypertension; E78.5 Hyperlipidemia, unspecified; E03.9 Hypothyroidism, unspecified; M19.90 Unspecified osteoarthritis, unspecified site; K21.9 Gastro-esophageal reflux disease without esophagitis; E66.9 Obesity, unspecified; Z68.29 Body mass index [BMI] 29.0-29.9, adult; Z79.01 Long term (current) use of anticoagulants; Z79.82 Long term (current) use of aspirin; Z79.899 Other long term (current) drug therapy; Z88.0 Allergy status to penicillin; Z88.5 Allergy status to narcotic agent; Z95.1 Presence of aortocoronary bypass graft
CPT/HCPCS: 93312; J2704

== ENCOUNTER 2018-09-12 07:19 | Outpatient (CLI) | payer MEDICARE, BC ==
--- NOTE | 2018-09-12 08:57 | CT ---
CT ANGIOGRAM THORAX WITH CONTRAST: (CTA CHEST) HISTORY: 73-year-old male with atrial fibrillation, ICD-10: I-48.0 "Status post CABG with left atrial appendage ligation. Questionable leak around the closure " TECHNIQUE: IV injection of iodinated contrast. 3-D MIP reconstructions. FINDINGS: There are bullae and blebs at the subpleural bilateral upper lobes. No consolidation or pulmonary mas s. No pleural effusion or pneumothorax. Sternotomy wires. Ectasia of ascending aorta. Diameter 4.3 cm. No aortic dissection. No mediastinal or hilar lymphadenopathy. No major pathology of great vessel s arising from aortic arch. No thromboembolus in pulmonary trunk, left and right main pulmonary arteries, or their proximal branches. No pericardial effusion. Left subclavian pacemaker. No contrast opacification of left atrial appendage. IMPRESSION: 1) left atrial appendage is closed. No evidence of leakage. 2) status post open heart surgery. 3) pacemaker. 4) paraseptal emphysema
[2018-09-12] MEDS ORDERED: ISOVUE-370 76%-LOCM 1 ML ONE (11:22)
== END 2018-09-12 07:20 | disposition home or self-care (01) ==
LOC: BICCT 07:19
PROVIDERS: ATTEND Internal Medicine Cardiovascular Disease
DX: I48.91 Unspecified atrial fibrillation (principal); J43.9 Emphysema, unspecified; Z95.1 Presence of aortocoronary bypass graft; Z95.0 Presence of cardiac pacemaker
CPT/HCPCS: 71275; Q9966

== ENCOUNTER 2018-12-26 21:21 | Inpatient (IN) | payer MEDICARE, BC ==
[2018-12-26 23:55] VITALS: BMI 27.8
[2018-12-27] MEDS: Sodium Chloride 0.9% 1,000 ML IV SCH ×2 (00:08→05:40)
[2018-12-27 00:43] LABS: Troponin I 0.848 ng/mL (< 0.028)
[2018-12-27] MEDS ORDERED: Nitroglycerin 0.4 MG TAB (25 Tab Bottle) PO PRN (01:50)
[2018-12-27] MEDS ORDERED: diphenhydrAMINE 25 MG CAP PO PRN (01:52)
[2018-12-27] MEDS ORDERED: Ondansetron PF 4 MG/2 ML Vial IVP PRN (01:52)
--- NOTE | 2018-12-27 03:03 | HP ---
CHIEF COMPLAINT: Chest pain. HISTORY OF PRESENT ILLNESS: Mr. Gallego is a very pleasant 73-year-old gentleman with an extensive cardiac history including triple-vessel coronary artery disease, status post three-vessel CABG, April 2018, atrial arrhythmias including atrial fibrillation and atrial flutter, sick sinus syndrome, status post pacemaker implant, who presented to the emergency department with complaints of chest discomfort. He states that the chest discomfort initially began about 2 days ago. He describes the sensation as "chest congestion", along with a sensation of pressure. He does say that it is exacerbated with cough, deep breathing and lying on his left side, but also endorses chest pressure when he was exercising on the treadmill this morning. The patient states that he has not been feeling "quite right", and so presented to the [place] ER for further workup and treatment. On arrival to the emergency department, lab work was significant for an elevated troponin of 0.6. His EKG showed sinus versus atrial paced rhythm with no acute ST or T-wave changes. He was given sublingual nitroglycerin, which seemed to help his discomfort. He was transferred to our facility for higher level of care. In transit, he was given aspirin and Lovenox. The patient's primary early childhood education instructor is Dr. Park. He is also followed by Dr. Hutchinson, who he saw last week. He did have his pacemaker interrogated during that visit and was told that all was fine. Besides the above cardiac complaints, the patient has no other specific concerns. He denies any dizziness, nausea, vomiting, palpitations, or syncope. REVIEW OF SYSTEMS: A 12-point review of systems performed and is negative except that stated above. ALLERGIES: CODEINE AND PENICILLINS. HOME MEDICATIONS: 1. Aspirin 81 mg daily. 2. Atorvastatin 10 mg p.o. at bedtime. 3. Cetrizine 10 mg p.o. daily. 4. Levothyroxine 88 mcg one tablet p.o. daily. 5. Lisinopril 2.5 mg p.o. b.i.d. 6. Pantoprazole 40 mg tablet daily. PAST MEDICAL HISTORY: 1. Triple-vessel coronary artery disease, status post three-vessel CABG, April 2018. 2. Paroxysmal atrial fibrillation, CHADS-VASc equals 4. 3. Atrial flutter, status post ablation. 4. Sick sinus syndrome, status post pacemaker. 5. History of non ST elevation [place]. 6. Hypertension. 7. Hyperlipidemia. 8. History of GI bleed secondary to duodenal ulcer, status post cauterization. 9. History of throat cancer, status post treatment. 10. Degenerative joint disease. 11. Codeine and penicillin allergy. 12. Gastroesophageal reflux disease. PAST SURGICAL HISTORY: 1. Three-vessel CABG in April 2018 with SANDERS to the LAD, SVG to the OM, and SVG to the right PDA. 2. Atrial flutter ablation. 3. Permanent dual-chamber pacemaker implant. 4. Back surgery. 5. Right shoulder orthopedic procedure. 6. Right knee replacement. SOCIAL HISTORY: The patient is a former smoker, but quit approximately 30 years ago. He denies any alcohol or illicit drug use. He is and lives with his . The patient is quite active. He performs all of his own yard work. He exercises 3 times a week on the treadmill and with weights. He has 2 children and 2 grandchildren. FAMILY HISTORY: Negative for heart disease. PHYSICAL EXAMINATION: VITAL SIGNS: Blood pressure is 127/64, pulse is 61, O2 saturation is 97% on room air, temperature 97.7. GENERAL: This is a well-appearing male, resting comfortably, in no acute distress. HEENT: Head is atraumatic and normocephalic. Mucous membranes are moist. NECK: Trachea is midline. No JVD. CV: S1 and S2. Regular rate and rhythm. No appreciable murmurs, rubs, or gallops. LUNGS: Regular respiratory rate and pattern. Clear to auscultation bilaterally. ABDOMEN: Positive bowel sounds. Soft, nontender. EXTREMITIES: No edema. Warm, well perfused. SKIN: Warm and dry. NEUROLOGIC: Cranial nerves 2 through 12 are grossly intact. The patient is nonfocal. LABORATORY DATA: White blood cell count 7.9, hemoglobin 12, hematocrit 38.3%, platelets are 197. Sodium 141, potassium 4.0, chloride 106, carbon dioxide 25, anion gap 14, BUN 13, creatinine 0.86, calcium 9.1. Troponin has been 0.6, 0.785 and 0.848 respectively. ASSESSMENT: 1. [id number] myocardial infarction. 2. Triple-vessel coronary artery disease, status post three-vessel coronary artery bypass graft in April 2018, with SANDERS to the LAD, SVG to the OM, and SVG to the right PDA. 3. Paroxysmal atrial fibrillation, CHADS-VASc equals 4, currently in atrial paced rhythm/sinus (the patient has had left atrial appendage ligation in April 2018. He does have history of GI bleeding, on Eliquis in the past). 4. Sick sinus syndrome, status post dual chamber pacemaker. 5. Hypertension. 6. Hyperlipidemia. 7. Hypothyroidism. 8. Gastroesophageal reflux disease. PLAN: Although the patient's complaints of chest pain were somewhat atypical, his troponin is elevated and we will consult his primary early childhood education instructor, Dr. Park for further recommendations. We will continue aspirin, Lovenox, and p.r.n. nitrates. We will have the patient's pacemaker interrogated as well. At this time, the patient is resting comfortably with no complaints. N.p.o. after midnight. We will get a fasting lipid profile in the morning as well as a TSH. Further recommendations based on hospital course and recommendations from Dr. Park. Job ID: [id number]
[2018-12-27] MEDS: Levothyroxine Sodium 88 MCG TAB PO SCH (05:39)
[2018-12-27] MEDS: Aspirin 81 mg Enteric Coated Tablet PO SCH (08:36)
[2018-12-27] MEDS: Loratadine 10 MG TAB PO SCH (08:36)
[2018-12-27] MEDS: Lisinopril 2.5 MG TAB PO SCH ×2 (08:36→20:22)
[2018-12-27] MEDS: Enoxaparin Sodium 100 MG/ML SYRINGE SC SCH ×2 (08:36→20:27)
[2018-12-27] MEDS: Acetaminophen 500 MG TAB PO PRN ×2 (12:06→20:23)
[2018-12-27] MEDS ORDERED: Sodium Chloride 0.9% 1,000 ML IV SCH (12:30)
--- NOTE | 2018-12-27 16:28 | PDOC.HOSPP ---
- Subjective Encounter Date: 12/27/18 Encounter Time: 10:30 Subjective: pt up in bed no complains of cp. - Objective Vital Signs & Weight: Vital Signs (12 hours) Temp Pulse Resp BP Pulse Ox 12/27/18 12:00 97.2 F L 66 18 134/67 96 12/27/18 08:36 63 12/27/18 08:15 97.8 F 63 16 139/68 97 Weight Weight 228 lb 11.2 oz Hospitalist ROS - Review of Systems Respiratory: denies: cough, dry, shortness of breath, hemoptysis, SOB with excertion, pleuritic pain, sputum, wheezing, other Cardiovascular: denies: chest pain, palpitations, orthopnea, paroxysmal noc. dyspnea, edema, light headedness, other Gastrointestinal: denies: nausea, vomiting, abdominal pain, diarrhea, constipation, melena, hematochezia, other - Medication Medications: Active Medications Generic Name Dose Route Start Last Admin Trade Name Freq PRN Reason Stop Dose Admin Acetaminophen 1,000 mg 12/27/18 01:52 12/27/18 12:06 Tylenol PO 1,000 mg Q6H PRN Administration Mild Pain (1-3) Aspirin 81 mg 12/27/18 09:00 12/27/18 08:36 Ecotrin PO 81 mg DAILY MARLA Administration Enoxaparin Sodium 100 mg 12/27/18 09:00 12/27/18 08:36 Lovenox SC 100 mg 0900,2100 MARLA Administration Sodium Chloride 1,000 mls @ 50 mls/hr 12/27/18 12:30 12/27/18 12:55 Normal Saline 0.9% IV 1,000 mls .Q20H MARLA Administration Levothyroxine Sodium 88 mcg 12/27/18 06:00 12/27/18 05:39 Synthroid PO 88 mcg 0600 MARLA Administration Lisinopril 2.5 mg 12/27/18 09:00 12/27/18 08:36 Zestril PO 2.5 mg BID MARLA Administration Loratadine 10 mg 12/27/18 09:00 12/27/18 08:36 Claritin PO 10 mg DAILY MARLA Administration Pantoprazole Sodium 40 mg 12/27/18 09:00 12/27/18 08:36 Protonix PO 40 mg DAILY MARLA Administration - Exam Neck: negative: supple, symmetric, no JVD, no thyromegaly, no lymphadenopathy, no carotid bruit, JVD Heart: negative: RRR, no murmur, no gallops, no rubs, normal peripheral pulses, irregular, diminshed peripheral pulses, murmur present, II/IV, III/IV Respiratory: negative: CTAB, no wheezes, no rales, no ronchi, normal chest expansion, no tachypnea, normal percussion, rales, rhonchi, tachypneic, wheezes Hosp A/P (1) CAD (coronary artery disease) Code(s): I25.10 - ATHSCL HEART DISEASE OF [place] CORONARY ARTERY W/O ANG PCTRS Status: Acute (2) NSTEMI (non-ST elevated myocardial infarction) Code(s): I21.4 - NON-ST ELEVATION (NSTEMI) MYOCARDIAL INFARCTION Status: Acute (3) Hypothyroidism Code(s): E03.9 - HYPOTHYROIDISM, UNSPECIFIED Status: Chronic (4) Obesity (BMI 30.0-34.9) Code(s): E66.9 - OBESITY, UNSPECIFIED Status: Chronic - Plan will continue current tx. pt had cabg 2019. cardiology consulted. pt npo incase any new procedure. will decrease iv fluids to 50ml/hr
[2018-12-27] MEDS ORDERED: Communication Order-Pharmacy FS SCH (16:30)
[2018-12-27] MEDS ORDERED: Atorvastatin Calcium 10 MG TAB PO SCH (21:00)
--- NOTE | 2018-12-27 22:33 | CON ---
DATE OF CONSULTATION: HISTORY OF PRESENT ILLNESS: Mr. Sang Gallego is a 73-year-old white male, who presented on April 26, 2018 from the emergency room. He had previously been told that he had an irregular heartbeat, although he denied history of atrial fibrillation. Also 25 years ago, he stated that he underwent cardiac catheterization, was told that he had 1 or 2% blockage. On the day of admission , he initially went to the hospital in [place] and was transferred here. He had been out doing yard work, cutting limbs and came in at approximately 1:30 p.m. Then in their early evening, he was eating dinner, went to bed and began having onset of central chest pressure and a feeling of shortness of breath. He said his blood pressure was approximately 160/120 with the heart rate in the 160s. He repeated this several minutes later and since he got the same result, he called EMS. He was taken to [place] ER and initial EKG revealed probable atrial flutter. He was given Lovenox 1 mg/kg. He then apparently converted to sinus rhythm. He did not have any further chest discomfort, but did develop a troponin up to 1.546 and it was felt that he had a non-STEMI. He underwent cardiac catheterization, which revealed 60% to 70% proximal LAD, which was hazy, totally occluded mid circumflex with distal vessel filling from the right coronary artery. There was total occlusion of 1st obtuse marginal, which filled from the left. Right coronary artery had an 80% mid stenosis. There was moderate anterior hypokinesis with ejection fraction of 45% to 50%. He then underwent CABG x3 on May 01, 2018, with SANDERS to the LAD and saphenous vein graft to the 2nd obtuse marginal and to the right posterior descending. He also had ligation of left atrial appendage. This was performed by Dr. Mills. Initially, his postop course was unremarkable. However, he had recurrence of atrial flutter on May 03. Also when he would convert back to sinus rhythm, he would have up to a 5.7 second pause. He underwent atrial flutter ablation by Dr. Hutchinson. He also had a 7 second pause with converting. He then went into atrial fibrillation. He was loaded with amiodarone and temporary epicardial leads were used over to pace over the weekend. Then, on May 07, he underwent placement of a dual-chamber pacemaker by Dr. Hutchinson. He was eventually placed on Eliquis for his paroxysmal atrial fibrillation. He went to rehab hospital on May 09, 2018. He then began to notice dark stools and had bloody stools. He was admitted, underwent EGD x2 with cauterization of bleeding duodenal ulcer both times. He required intubation. He had a heart rate of 140 per minute. He had paroxysmal atrial fibrillation as well as paroxysmal atrial tachycardia. He was placed on amiodarone and digoxin. His hemoglobin fell to 5.9 and required transfusions. He was given a total of 9 units of packed RBCs along with 1 unit of fresh frozen plasma. He was placed on Protonix 40 mg b.i.d. He was seen in the office on June 05 and denied any chest pain or shortness of breath. He was again seen September 28, 2018. EP had stopped the amiodarone in August 2018. STEFANY showed that the left atrial appendage still had a small leak. Chest CTA later showed that the RICH had no flow. EP also stopped Eliquis in September 2018. Over the last 2-3 days, he has been having episodes of chest pressure. He would have chest pressure while exercising on treadmill. Ultimately, he went to the hospital in [facility] and was found to have a troponin I of 0.6, and so he was transferred here for further evaluation. At the present time, he denies any chest discomfort. He has been given aspirin and Lovenox. PAST MEDICAL HISTORY: Metoprolol in the past for premature beats, hypothyroidism, hypercholesterolemia, atrial flutter, paroxysmal atrial fibrillation. OPERATIONS: CABG and atrial flutter ablation, left atrial appendage ligation at the time of CABG and was shown to be closed with chest CTA, pacemaker placement, right shoulder surgery, laryngeal cancer and radiation therapy 4 or 5 years ago, right total knee replacement and back surgery. MEDICATIONS: 1. Aspirin 81 daily. 2. Atorvastatin 10 mg at bedtime. 3. Zyrtec 10 mg daily. 4. Levothyroxine 88 mcg daily. 5. Lisinopril 2.5 b.i.d. 6. Protonix 40 daily. ALLERGIES: CODEINE AND PENICILLIN. SOCIAL HISTORY: He is a former smoker, but stopped 30 years ago. He does not drink. FAMILY HISTORY: Negative for myocardial infarction or CABG. REVIEW OF SYSTEMS: A 10-point review of systems is otherwise unremarkable. PHYSICAL EXAMINATION: VITAL SIGNS: Blood pressure 134/67, pulse 66. HEENT: PERRL. NECK: Supple. CHEST: Clear. CARDIAC: S1 and S2 normal without any S3, S4, or murmurs. Carotid upstrokes normal without bruits. ABDOMEN: Normal bowel sounds without tenderness or organomegaly. EXTREMITIES: Revealed no clubbing, cyanosis, or edema. NEUROLOGIC: Grossly intact. SKIN: Warm and dry. IMAGING: EKG is unremarkable. LABORATORY DATA: Hemoglobin 12.0, hematocrit 38.3, white count 7900, platelets 197,000, D-dimer 0.50. Troponin I is up to 0.848. Cholesterol 118, triglycerides 59, HDL 40, LDL 66. TSH is normal in September 2018. Sodium 140, potassium 4.1, chloride 106, carbon dioxide 25, BUN 13, creatinine 0.86, glucose 126. IMPRESSION: 1. Non-ST elevation myocardial infarction without acute EKG changes. 2. Non-ST elevation myocardial infarction prior to bypass surgery. 3. Status post coronary artery bypass grating x3 in April 2018 with left internal mammary artery to left anterior descending artery and saphenous vein graft to the obtuse marginal and to the right posterior descending. 4. Paroxysmal atrial fibrillation. 5. History of gastrointestinal bleed, on Eliquis in the past. 6. Left atrial appendage ligation with confirmation of closure at the time of transesophageal echo. 7. Sick sinus syndrome status post placement of dual-chamber pacemaker. 8. Hypertension. 9. Hyperlipidemia. 10. Hypothyroidism. 11. Gastroesophageal reflux disease. 12. Bleeding duodenal ulcer. PLAN: Mr. Gallego will undergo cardiac catheterization. Risks of this had been discussed including , myocardial infarction, dye reaction, vascular injury, CVA, transfusion, limb loss, renal loss, etc. Also risk of intervention with PTCA and stent placement were discussed including , myocardial infarction, emergent CABG, restenosis, stent thrombosis, vessel perforation, etc. With his history of GI bleeding with hemoglobin falling to 5.9, I would only place a bare-metal stent. He understands and agrees to proceed. Job ID: [id number] MTDD
[2018-12-28] MEDS: Lisinopril 2.5 MG TAB PO SCH (05:39)
[2018-12-28] MEDS: Aspirin 81 mg Enteric Coated Tablet PO SCH (05:39)
[2018-12-28] MEDS: Levothyroxine Sodium 88 MCG TAB PO SCH (05:39)
[2018-12-28] MEDS: Loratadine 10 MG TAB PO SCH (05:39)
[2018-12-28] MEDS ORDERED: Sodium Chloride 0.9% 1,000 ML IV SCH ×2 (06:00→08:17)
[2018-12-28] MEDS ORDERED: Lidocaine 1% (PF) 30 ML VIAL ONE (06:31)
[2018-12-28] MEDS ORDERED: Heparin 10,000 UNITS/1 ML VIAL ONE (06:31)
[2018-12-28] MEDS ORDERED: Midazolam HCl 2 mg/2 ml Vial ONE (07:11)
[2018-12-28] MEDS ORDERED: Fentanyl 100 MCG/2 ML VIAL ONE (07:11)
[2018-12-28] MEDS ORDERED: Protamine Sulfate 50 MG/5 ML VIAL ONE (07:47)
[2018-12-28] MEDS ORDERED: Nitroglycerin 0.4 MG TAB (25 Tab Bottle) SL PRN (08:16)
[2018-12-28] MEDS ORDERED: Sodium Chloride 0.9% 200 ML IV PRN (08:16)
[2018-12-28] MEDS ORDERED: Iopamidol 370 76% 100 ML VIAL ONE (09:40)
[2018-12-28 12:56] LABS: Anion Gap 11 mmol/L (10-20); BUN (Urea Nitrogen) 10 mg/dL (8.4-25.7); Calc. Creatinine Clearance 133 mL/min (70-130); Calcium 8.8 mg/dL (7.8-10.44); Carbon Dioxide 25 mmol/L (23-31); Chloride 105 mmol/L (98-107); Estimated GFR-MDRD Greater than 90; Glucose 81 mg/dL (83-110); Potassium 4.3 mmol/L (3.5-5.1); Sodium 137 mmol/L (136-145)
[2018-12-28 15:25] VITALS: BP 106/56; TEMP 97.5
== END 2018-12-28 16:07 | disposition home or self-care (01) | DRG 282 ==
LOC: ERS 21:21 → 2NO 22:18
PROVIDERS: ADMIT Internal Medicine; ATTEND Internal Medicine
PROC: 4A023N7 Measurement of Cardiac Sampling and Pressure, Left Heart, Percutaneous Approach (ICD-10-PCS; principal; 2018-12-28)
PROC: B2111ZZ Fluoroscopy of Multiple Coronary Arteries using Low Osmolar Contrast (ICD-10-PCS; 2018-12-28)
PROC: B2181ZZ Fluoroscopy of Left Internal Mammary Bypass Graft using Low Osmolar Contrast (ICD-10-PCS; 2018-12-28)
PROC: B2151ZZ Fluoroscopy of Left Heart using Low Osmolar Contrast (ICD-10-PCS; 2018-12-28)
PROC: 4A033BC Measurement of Arterial Pressure, Coronary, Percutaneous Approach (ICD-10-PCS; 2018-12-28)
DX: I21.4 Non-ST elevation (NSTEMI) myocardial infarction (principal); I25.2 Old myocardial infarction; Z96.651 Presence of right artificial knee joint; I25.10 Atherosclerotic heart disease of native coronary artery without angina pectoris; I49.5 Sick sinus syndrome; I48.0 Paroxysmal atrial fibrillation; I10 Essential (primary) hypertension; E78.5 Hyperlipidemia, unspecified; M19.90 Unspecified osteoarthritis, unspecified site; K21.9 Gastro-esophageal reflux disease without esophagitis; E03.9 Hypothyroidism, unspecified; E66.9 Obesity, unspecified; E78.00 Pure hypercholesterolemia, unspecified; Z68.27 Body mass index [BMI] 27.0-27.9, adult; Z95.1 Presence of aortocoronary bypass graft; Z95.0 Presence of cardiac pacemaker; Z85.818 Personal history of malignant neoplasm of other sites of lip, oral cavity, and pharynx; Z87.891 Personal history of nicotine dependence; Z88.5 Allergy status to narcotic agent; Z88.0 Allergy status to penicillin; Z88.2 Allergy status to sulfonamides; Z79.82 Long term (current) use of aspirin
CPT/HCPCS: 36415; 80048; 80061; 85347; 93005; 93455; 94760; 99152; C1769; J1644; J1650; J2001; J2250; J2720; J3010

== ENCOUNTER 2019-09-26 08:15 | Outpatient (CLI) | payer MEDICARE, BC ==
--- NOTE | 2019-09-26 08:36 | RAD ---
CHEST 2 VIEWS: HISTORY: Chest pain. COMPARISON: 12/26/2018. FINDINGS: Postop midline sternotomy. Left ICD. No confluent pneumonia, overt edema, or pleural effusion. Min imal chronic changes in the right upper lobe, stable. IMPRESSION: Minimal chronic change, stable. No significant acute intrathoracic disease. POS: AH
== END 2019-09-26 08:16 | disposition home or self-care (01) ==
LOC: BICRAD 08:15
PROVIDERS: ATTEND Internal Medicine Cardiovascular Disease
DX: I48.91 Unspecified atrial fibrillation (principal)
CPT/HCPCS: 36415; 71046; 80053; 80061; 84443

== ENCOUNTER 2020-09-11 11:19 | Outpatient (CLI) | payer MEDICARE, BC ==
[2020-09-11 12:56] LABS: #Eosinphils 0.1 10x3/uL (0.0-0.5); #Monocytes 0.7 10x3/uL (0.0-1.1); %Basophils 0.4 % (0.0-2.0); %Eosinophils 2.3 % (0.0-6.0); %Lymphocytes 45.6 % (18.0-47.0); %Monocytes 13.2 % (0.0-10.0); %Neutrophils 38.3 % (40.0-75.0); Hemoglobin 13.7 g/dL (13.5-17.5); Mean Corpuscular HGB CONC 33.2 g/dL (32.0-36.0); Mean Corpuscular Hemoglobin 31.1 pg (27.0-33.0); Mean Corpuscular Volume 93.9 fl (81.2-95.1); Mean Platelet Volume 10.3 fl (7.4-10.4); Platelet Count 168 10x3/uL (150-450); RBC Distribution Width 12.4 % (11.5-14.5); White Blood Cell (WBC) Count 5.3 10x3/uL (3.5-10.5)
[2020-09-12 00:08] LABS: SARS-CoV-2 PCR by NAA Not Detected (NotDetected)
== END 2020-09-11 11:20 | disposition home or self-care (01) ==
LOC: LABBT 11:19
PROVIDERS: ATTEND Internal Medicine Cardiovascular Disease
DX: Z01.818 Encounter for other preprocedural examination (principal); Z20.822 Contact with and (suspected) exposure to COVID-19
CPT/HCPCS: 85025; U0003; U0005

== ENCOUNTER 2020-09-16 06:08 | Day surgery (SDC) | payer MEDICARE, BC ==
[2020-09-15 09:44] VITALS: BMI 28.1
[2020-09-16] MEDS ORDERED: Heparin 10,000 UNITS/ 10 ML VIAL ONE (06:29)
[2020-09-16] MEDS ORDERED: Lidocaine 1% (PF) 30 ML VIAL ONE (06:30)
[2020-09-16] MEDS ORDERED: Midazolam HCl 2 mg/2 ml Vial ONE (07:14)
[2020-09-16] MEDS ORDERED: Fentanyl 100 MCG/2 ML VIAL ONE (07:14)
[2020-09-16] MEDS ORDERED: Protamine Sulfate 50 MG/5 ML VIAL ONE (07:48)
[2020-09-16] MEDS ORDERED: Iopamidol 370 76% 50 ML VIAL FS ONE (09:02)
[2020-09-16] MEDS ORDERED: Iopamidol 370 76% 100 ML VIAL ONE (09:02)
== END 2020-09-16 14:44 | disposition home or self-care (01) ==
LOC: CCL 06:08
PROVIDERS: ATTEND Internal Medicine Cardiovascular Disease
PROC: 4A023N7 Measurement of Cardiac Sampling and Pressure, Left Heart, Percutaneous Approach (ICD-10-PCS; principal; 2020-09-16)
PROC: B2111ZZ Fluoroscopy of Multiple Coronary Arteries using Low Osmolar Contrast (ICD-10-PCS; 2020-09-16)
PROC: B2181ZZ Fluoroscopy of Left Internal Mammary Bypass Graft using Low Osmolar Contrast (ICD-10-PCS; 2020-09-16)
PROC: B2131ZZ Fluoroscopy of Multiple Coronary Artery Bypass Grafts using Low Osmolar Contrast (ICD-10-PCS; 2020-09-16)
DX: I25.10 Atherosclerotic heart disease of native coronary artery without angina pectoris (principal); I25.82 Chronic total occlusion of coronary artery; I25.2 Old myocardial infarction; I47.2 Ventricular tachycardia; I48.3 Typical atrial flutter; I48.91 Unspecified atrial fibrillation; I47.1 Supraventricular tachycardia; I10 Essential (primary) hypertension; E78.00 Pure hypercholesterolemia, unspecified; E03.9 Hypothyroidism, unspecified; C32.9 Malignant neoplasm of larynx, unspecified; Z87.891 Personal history of nicotine dependence; Z79.82 Long term (current) use of aspirin; Z79.899 Other long term (current) drug therapy; Z88.0 Allergy status to penicillin; Z88.5 Allergy status to narcotic agent; Z95.1 Presence of aortocoronary bypass graft; Z95.0 Presence of cardiac pacemaker
CPT/HCPCS: 85347; 93459; 99152; J1644; J2001; J2250; J2720; J3010; Q9967

== ENCOUNTER 2025-04-02 09:26 | Outpatient (CLI) | payer MEDICARE, BC | END 2025-04-02 09:27 | disposition home or self-care (01) | LOC: RAD 09:26 | PROVIDERS: ATTEND Otolaryngology Otolaryngic Allergy | DX: C32.0 Malignant neoplasm of glottis (principal); R13.12 Dysphagia, oropharyngeal phase | CPT/HCPCS: 74230 ==

== ENCOUNTER 2025-04-03 11:58 | Emergency (ER) | payer MEDICARE, BC ==
[2025-04-03 12:40] LABS: #Basophils Less than 0.03 10x3/uL (0.0-0.2); #Eosinophils 0.07 10x3/uL (0.0-0.7); #Monocytes 0.96 10x3/uL (0.11-0.59); #Neutrophils 2.46 10x3/uL (1.40-6.50); %Basophils 0.4 % (0.0-1.0); %Eosinophils 1.3 % (0.0-10.0); %Lymphocytes 33.6 % (21.0-51.0); %Monocytes 18.1 % (0.0-10.0); %Neutrophils 46.6 % (42.0-75.0); Hematocrit 43.3 % (42.0-52.0); Hemoglobin 14.3 g/dL (14.0-18.0); Mean Corpuscular Hemoglobin 31.2 pg (27.0-31.0); Mean Corpuscular Volume 94.3 fL (78.0-98.0); Platelet Count 179 10x3/uL (130-400); Red Blood Cell (RBC) Count 4.59 mill/uL (4.70-6.10); White Blood Cell (WBC) Count 5.29 10x3/uL (4.8-10.8)
[2025-04-03 12:54] LABS: ALT (SGPT) 16 U/L (Less than 45); AST (SGOT) 27 U/L (11-34); Albumin 4.1 g/dL (3.1-4.5); Alkaline Phosphatase 54 U/L (40-110); Anion Gap 14 mmol/L (10-20); BUN (Urea Nitrogen) 11 mg/dL (8.4-25.7); Bilirubin, Total 0.7 mg/dL (0.3-1.2); Calc. Creatinine Clearance 0 mL/min (70-130); Calcium 9.5 mg/dL (7.8-10.44); Carbon Dioxide 26 mmol/L (23-31); Chloride 103 mmol/L (98-107); Globulin 3.3 g/dL (2.4-3.5); Glucose 86 mg/dL (83-110); Potassium 4.3 mmol/L (3.5-5.1); Sodium 139 mmol/L (136-145)
[2025-04-03 13:18] LABS: Magnesium 1.8 mg/dL (1.6-2.6)
== END 2025-04-03 21:23 | disposition home or self-care (01) ==
LOC: ERS 11:58
DX: T82.119A Breakdown (mechanical) of unspecified cardiac electronic device, initial encounter (principal); I25.2 Old myocardial infarction; I10 Essential (primary) hypertension; Z79.82 Long term (current) use of aspirin; Z79.899 Other long term (current) drug therapy; X58.XXXA Exposure to other specified factors, initial encounter
CPT/HCPCS: 36415; 71045; 80053; 83735; 84443; 84484; 85025; 93005